=== PATIENT | male | born 1930 ===

== ENCOUNTER 2018-06-22 23:40 | Emergency (ER) | payer MEDICARE ==
[2018-06-22 23:46] VITALS: RESP 16
--- NOTE | 2018-06-23 00:49 | ED PDOC ---
HPI: Trauma/Fall - HPI Time Seen by Provider: 06/22/18 23:52 Chief Complaint (Nursing): Abnormal Skin Integrity Chief Complaint (Provider): Abnormal Skin Integrity History Per: Patient History/Exam Limitations: no limitations Injury Occurred (Timing): Just Before Arrival Associated Symptoms: denies: Dizziness, LOC Additional Complaint(s): 88 y/o male with history of HTN, high cholesterol, anxiety and depression, presents to the ED for evaluation of trauma s/p fall. Patient states he tripped while getting out of bed to go to the bathroom and states he landed on his left arm and hit the back of his head. Patient denies chest pain, shortness of breath, dizziness, or headache. He is only complaining of pain in his left arm. Patient had no trouble walking after event. PMD: Dr. Isaac Rao Past Medical History Reviewed: Historical Data, Nursing Documentation, Vital Signs Vital Signs: Last Vital Signs Temp 98.0 F 06/22/18 23:44 Pulse 74 06/22/18 23:44 Resp 16 06/22/18 23:44 BP 180/99 H 06/22/18 23:44 Pulse Ox 95 06/22/18 23:44 - Medical History PMH: Anxiety, Arthritis (knees), Depression, HTN, Hypercholesterolemia Denies: Chronic Kidney Disease - Family History Family History: States: Unknown Family Hx - Home Medications Home Medications: Ambulatory Orders Medication Instructions Recorded Cephalexin [Keflex] 500 mg PO BID 7 Days #14 capsule 06/23/18 - Allergies Allergies/Adverse Reactions: Allergies Allergy/AdvReac Type Severity Reaction Status Date / Time No Known Allergies Allergy Verified 06/22/18 23:43 Review of Systems ROS Statement: Except As Marked, All Systems Reviewed And Found Negative Cardiovascular: Negative for: Chest Pain Respiratory: Negative for: Shortness of Breath Musculoskeletal: Positive for: Arm Pain Neurological: Negative for: Headache, Dizziness Physical Exam - Reviewed Nursing Documentation Reviewed: Yes Vital Signs Reviewed: Yes - Physical Exam Appears: Positive for: Well, Non-toxic, No Acute Distress Head Exam: Negative for: ATRAUMATIC (1 cm laceration to occipital scalp; no active bleeding) Skin: Positive for: Normal Color, Warm, DRY Eye Exam: Positive for: EOMI, Normal appearance, PERRL Neck: Positive for: Normal, Painless ROM Cardiovascular/Chest: Positive for: Regular Rate, Rhythm. Negative for: Murmur Respiratory: Positive for: Normal Breath Sounds. Negative for: Respiratory Distress Gastrointestinal/Abdominal: Positive for: Normal Exam, Soft. Negative for: Tenderness Back: Positive for: Normal Inspection. Negative for: Vertebral Tenderness Extremity: Positive for: Normal ROM, Other (left arm has 4 cm laceration with large skin tear on volar surface; neurovascularly intact). Negative for: Deformity Neurologic/Psych: Positive for: Alert, Oriented. Negative for: Motor/Sensory Deficits - ECG O2 Sat by Pulse Oximetry: 95 (RA) Pulse Ox Interpretation: Normal Medical Decision Making Medical Decision Making: Time: 00:05 A/P: 88 y/o patient with mechanical fall. Patient is otherwise well appearing with no neurological deficits. Patient is not on blood thinners. Will obtain imaging and repair lacerations * CT Head * RAD Forearm * RAD Pelvis 00:49 CT Head FINDINGS: BRAIN Mild periventricular, deep and subcortical white matter hypodensity bilaterally, compatible with mild microangiopathy. No evidence for acute intracranial hemorrhage. No midline shift or mass effect. VENTRICLES: Mild prominence of ventricles and sulci compatible with mild, age appropriate atrophy. ORBITS: The orbits are unremarkable. SINUSES AND MASTOIDS: The paranasal sinuses and mastoid air cells are clear. BONES: No fracture. SOFT TISSUES: Unremarkable. MISCELLANEOUS: There is atherosclerotic calcification of the intracranial vessels. No convincing evidence for acute territorial infarction. There is some beam hardening artifact near the skull base which slightly limits evaluation. IMPRESSION: 1. Mild prominence of ventricles and sulci compatible with mild, age appropriate atrophy. 2. Mild periventricular, deep and subcortical white matter hypodensity bilaterally, compatible with mild microangiopathy. 3. There is atherosclerotic calcification of the intracranial vessels. 4. No convincing evidence for acute intracranial abnormality. 5. There is some beam hardening artifact near the skull base which slightly limits evaluation. Patient's wounds were sutured and dressed with xeroform and gauze Patient suitable for outpatient followup Well appearing upon discharge Scribe Attestation: Documented by Isidro Payne acting as a scribe for Anmol Aguila MD. Provider Scribe Attestation: All medical record entries made by the Scribe were at my direction and personally dictated by me. I have reviewed the chart and agree that the record accurately reflects my personal performance of the history, physical exam, medical decision making, and the department course for this patient. I have also personally directed, reviewed, and agree with the discharge instructions and disposition. Disposition - Clinical Impression Clinical Impression: Head injury, Laceration - Patient ED Disposition Is Patient to be Admitted: No - Disposition Referrals: Isaac Rao MD [Family Provider] - Disposition: Routine/Home Disposition Time: 02:38 Condition: GOOD Prescriptions: Cephalexin [Keflex] 500 mg PO BID 7 Days #14 capsule Instructions: Laceration Repair With Stitches (DC), Laceration Repair With Young (DC), Closed Head Injury Forms: [employer] ([place]) Laceration - Laceration Repair No standard instances Wound Length (In cm): 4 Description Of Wound: Linear Anesthesia: Lidocaine 1% Wound Examination: Irrigated With Saline Wound Closure: Suture Suture Technique And Material Used: Interrupted Wound Complexity: Simple (4cm laceration to L forearm; 2nd laceration to occiput with 0.5cm laceration, superficial, nonlinear, placed on staple)
[2018-06-23] MEDS ORDERED: Lidocaine Hydrochloride 1% 10 ML ONE ×2 (02:00→02:13)
[2018-06-23 04:12] VITALS: BP 141/81; PULSE 72; TEMP 98.2; O2SAT 99
--- NOTE | 2018-06-23 08:37 | RAD ---
Date of service: 06/23/2018 PROCEDURE: HISTORY: fall, lac COMPARISON: None TECHNIQUE: Two views FINDINGS: No fracture or dislocation. Atherosclerotic vascular calcifications present. Well corticated bony density borders the distal humeral epicondyles on series 386, image 2 this is not localized with certainty on the frontal view are differential considerations. It is not believed to be an osseous avulsion given its well corticated appearance. Calcific and/or ligamentous related calcification is favored. IMPRESSION: No fracture or lytic lesion. Other findings as above.
--- NOTE | 2018-06-23 08:41 | RAD ---
Date of service: 06/23/2018 PROCEDURE: Radiographs of the pelvis. HISTORY: fall COMPARISON: None. FINDINGS: BONES: Pelvic Bones: Generalized osteopenia. No fracture or lytic lesion seen. Hips: Somewhat limited in its assessment no significant change in the frog-leg position from the straight AP pelvic view. The femoral neck is therefore not elongated. Nevertheless no fracture or lytic lesion seen. JOINTS: Sacroiliac Joints: Unremarkable. Pubic Symphysis: Minimal degenerative sclerotic change. OTHER FINDINGS: Endplate spondylosis. Bilateral groin atherosclerotic vascular calcifications. A 2 cm homogeneous dense calcification/ossification superolateral to right femoral head neck junction its etiology and origin is unclear some clear this is related to gluteal soft tissues or if it is related to the right joint. IMPRESSION: No fracture or lytic lesion. No dislocation. Limited exam for reasons stated above. If further evaluation is needed consider MRI or CT of the hips.
--- NOTE | 2018-06-23 08:49 | CT ---
Date of service: 06/23/2018 PROCEDURE: CT HEAD WITHOUT CONTRAST. HISTORY: fall, head injury COMPARISON: None available. TECHNIQUE: Axial computed tomography images were obtained through the head/brain without intravenous contrast. Radiation dose: Total exam DLP = 797.55 mGy-cm. This CT exam was performed using one or more of the following dose reduction techniques: Automated exposure control, adjustment of the mA and/or kV according to patient size, and/or use of iterative reconstruction technique. FINDINGS: HEMORRHAGE: No intracranial hemorrhage. BRAIN: No mass effect or edema there is mild generalized cerebral atrophy and mild periventricular hypodensity compatible with chronic, likely microvascular ischemic changes. VENTRICLES: Ventricular size/prominence commensurate with the degree of atrophy. CALVARIUM: Unremarkable. PARANASAL SINUSES: There is trace inflammatory change in a left sphenoid air cell. The MASTOID AIR CELLS: Unremarkable as visualized. No inflammatory changes. OTHER FINDINGS: Extensive atherosclerotic vascular calcification of the vertebrobasilar and supraclinoid carotid arteries noted. IMPRESSION: No intracranial hemorrhage or mass effect. Cerebral atrophy and findings compatible with microvascular ischemic changes. This portion was compatible with the preliminary [place] reading. Trace left sphenoid sinus inflammatory changes-this was not the mention on the preliminary [place] reading.
== END 2018-06-23 03:10 | disposition home or self-care (01) ==
LOC: H.ER 23:40 → EDBD 23:40 → H.ER 06-23 03:10
DX: S09.90XA Unspecified injury of head, initial encounter (principal); S01.01XA Laceration without foreign body of scalp, initial encounter; W06.XXXA Fall from bed, initial encounter; Z86.59 Personal history of other mental and behavioral disorders; I10 Essential (primary) hypertension; S51.812A Laceration without foreign body of left forearm, initial encounter

== ENCOUNTER 2018-06-24 03:19 | Inpatient (IN) | payer MEDICARE ==
--- NOTE | 2018-06-24 03:40 | ED PDOC ---
HPI: Seizure Time Seen by Provider: 06/24/18 03:24 Chief Complaint (Nursing): Seizure Chief Complaint (Provider): Possible Seizure History Per: Patient, EMS, Fountain Attendant (Certified senior administrative associate ERIK Aleman) History/Exam Limitations: clinical condition (dementia) Number Of Seizures: One Additional Complaint(s): 88 y/o male with history of HTN, high cholesterol, anxiety, and depression, was brought to the ED by EMS for syncope vs. seizure. History is limited due to dementia. EMS was called by because of fall. Per EMS, patient was found in his living room and they state that when they tried to pick him up he became pale and diaphoretic with seizure like activity and patient urinated on himself. EMS reports patient was alert shortly thereafter and knew he was in his own li ving room. On arrival to ED patient is not complaining of any pain. Of note, patient was in this ER yesterday for fall. The patient states that he was feeling dizzy in the house and that he called EMS, although EMS reports that the was the one who called. Patient denies headache, chest pain, shortness of breath. PMD: Dr. Rao Past Medical History Reviewed: Historical Data, Nursing Documentation, Vital Signs Vital Signs: Last Vital Signs Temp 99.2 F 06/24/18 03:22 Pulse 100 H 06/24/18 03:22 Resp 16 06/24/18 03:22 BP 127/63 06/24/18 03:22 Pulse Ox 100 06/24/18 03:22 - Medical History PMH: Anxiety, Arthritis (knees), Depression, HTN, Hypercholesterolemia Denies: Chronic Kidney Disease - Family History Family History: States: Unknown Family Hx - Home Medications Home Medications: Ambulatory Orders Medication Instructions Recorded Clonazepam [Klonopin] 0.5 mg PO PRN PRN 06/24/18 amLODIPine [Norvasc] 5 mg PO DAILY 06/24/18 - Allergies Allergies/Adverse Reactions: Allergies Allergy/AdvReac Type Severity Reaction Status Date / Time No Known Allergies Allergy Verified 06/22/18 23:43 Review of Systems Review Of Systems: ROS cannot be obtained secondary to pt's inabilty to answer questions. (dementia) Physical Exam - Reviewed Nursing Documentation Reviewed: Yes Vital Signs Reviewed: Yes - Physical Exam Appears: Positive for: Well, Non-toxic, No Acute Distress Head Exam: Negative for: ATRAUMATIC (healing wounds to back of head) Skin: Positive for: Normal Color, Warm, DRY Eye Exam: Positive for: EOMI, Normal appearance, PERRL Neck: Positive for: Normal, Painless ROM Cardiovascular/Chest: Positive for: Tachycardia, Irregularly Irregular Respiratory: Positive for: Normal Breath Sounds. Negative for: Respiratory Distress Gastrointestinal/Abdominal: Positive for: Normal Exam, Soft. Negative for: Tenderness Back: Positive for: Normal Inspection Extremity: Positive for: Normal ROM (moving all extremities), Other (healing wounds to left arm; TTP of R hip on palpation). Negative for: Pedal Edema, Deformity Neurologic/Psych: Positive for: Alert, Oriented (x2 (believes it to be 2017)). Negative for: Motor/Sensory Deficits - Laboratory Results Result Diagrams: 06/24/18 03:55 06/24/18 03:55 - ECG O2 Sat by Pulse Oximetry: 100 (RA) Pulse Ox Interpretation: Normal Medical Decision Making Medical Decision Making: Time: 03:29 A/P: 88 y/o with history of HTN, high cholesterol, anxiety and depression with syncope vs. seizure. It is unclear at this time if it was seizure however its unlikely given no post-ictal period. Possible syncope with tonic-clonic feature. If lactate is elevated will point more towards seizure. Patient also currently in afib with RVR, will provide rate control. * Labs * CT Chest * CT C Spine * CT Pelvis * CXR * Cardizem 04:36 CT Head COMMENTS: There is normal configuration of sella turcica. There are no intra or extra- axial collections. There is no mass effect or midline shift. There is no evidence of hematoma formation. No hydrocephalus is present. The ventricles are symmetrical. No abnormal calcifications are present. There is diffuse age-appropriate cerebellar and cerebral atrophy with proportionally dilated ventricles and cortical sulci. There are bilateral periventricular and subcortical white matter hypolucencies compatible with mild chronic microvascular disease. Otherwise, no significant focal abnormalities are seen either in the posterior fossa or supratentorial compartment. Benign meningeal and tentorial calcifications. IMPRESSION: 1. Age-appropriate cerebellar and cerebral atrophy. 2. Mild chronic microvascular disease. 3. No evidence of acute intracranial pathology. 04:42 CT C Spine Findings: Mild osteopenia of the bones. Mild benign chronic compression deformities of C4, C5 and C6 levels. There are diffuse spondylotic changes. Findings are demonstrated by disc space narrowing, osteophyte formation and degenerative endplate changes. Facet joint arthropathy is noted. No fracture or dislocation is seen. No aggressive bone lesion is noted. Chronic fracture of the spinous process of T1. Moderate multilevel degenerative disc disease from C3-C7. Impression: Spondylosis. Multilevel facet joint arthropathy. No acute bone pathology. 04:53 CT Pelvis Findings: Moderate osteopenia of the bones. Acute displaced right intertrochanteric fracture. Distended bladder suggestive of retention. Secondary mild left hydronephrosis. Moderate constipation. Uncomplicated colonic diverticulosis.Ther e are changes of degenerative joint disease. Acute oblique nondisplaced fracture of the left transverse process of L5. Impression: Acute displaced right intertrochanteric fracture. Urinary retention. 5:30 Patient has widening of mediastinum on CXR, will get CT to rule out dissection Patient is now in NSR after omid Norris contacted regarding fracture of hip Patient now complaining of pain in his R hip, will give toradol 15mg IV Dr. Ocampo aware of patient, will assume care of patient. Scribe Attestation: Documented by Isidro Payne acting as a scribe for Anmol Aguila MD. Provider Scribe Attestation: All medical record entries made by the Scribe were at my direction and personally dictated by me. I have reviewed the chart and agree that the record accurately reflects my personal performance of the history, physical exam, medical decision making, and the department course for this patient. I have also personally directed, reviewed, and agree with the discharge instructions and disposition. Disposition - Clinical Impression Clinical Impression: Syncope, Atrial fibrillation with RVR, Hip fracture, intertrochanteric - Patient ED Disposition Is Patient to be Admitted: Yes Discussed With DrSolitario: Ethan Ocampo Counseled Patient/Family Regarding: Studies Performed, Diagnosis - Disposition Disposition Time: 05:25 Condition: FAIR
[2018-06-24 04:43] LABS: BASO % 0.4 % (0.0-2.0); EOS # 0.1 K/uL (0.0-0.7); EOS % 0.6 % (0.0-4.0); HEMOGLOBIN 12.7 g/dL (12.0-18.0); LYMPH # 0.9 K/uL (1.0-4.3); LYMPH % 7.9 % (20.0-40.0); MEAN CELL VOLUME 89.4 fl (80.0-94.0); MEAN CORPUSCULAR HEMOGLOBIN 29.5 pg (27.0-31.0); MEAN PLATELET VOLUME 7.5 fl (7.2-11.7); MONO # 0.6 K/uL (0.0-0.8); MONO % 5.5 % (0.0-10.0); NEUT # 9.8 K/uL (1.8-7.0); NEUT % 85.6 % (50.0-75.0); NRBC % 0.1 % (0.0-0.0); PLATELET COUNT 261 K/uL (130-400); RBC 4.31 Mil/uL (4.40-5.90); WHITE BLOOD COUNT 11.4 K/uL (4.8-10.8)
[2018-06-24 04:47] LABS: INR 1.2; PROTHROMBIN TIME 14.1 Seconds (9.8-13.1)
[2018-06-24 04:50] LABS: PARTIAL THROMBOPLASTIN TIME 28.4 Seconds (25.6-37.1)
[2018-06-24 04:51] LABS: BLOOD UREA NITROGEN 32 mg/dl (9-20); CALCIUM 8.8 mg/dL (8.4-10.2); GFR NON-AFRICAN AMERICAN > 60
[2018-06-24] MEDS ORDERED: Sodium Chloride 0.9% 50 ML IV ONE (05:16)
[2018-06-24] MEDS ORDERED: Iodixanol 320 MG/ML 100 ML BOTTLE IV ONE (05:16)
[2018-06-24 06:00] LABS: LYMPHOCYTE 5 % (20-50); MONOCYTE 7 % (0-10); MYELOCYTE 1 % (0-0); NEUTROPHIL 85 % (42-75); REACTIVE LYMPHOCYTES 2 % (0-0); TOTAL CELLS COUNTED 100
[2018-06-24 06:01] LABS: PLATELET ESTIMATE NORMAL (NORMAL)
[2018-06-24 06:02] LABS: LARGE PLATELETS PRESENT; SPHEROCYTES SLIGHT
[2018-06-24] MEDS ORDERED: Oxycodone/Acetaminophen 5/325 mg Tab PO PRN (06:37)
[2018-06-24 07:09] LABS: URINE BILIRUBIN NEGATIVE (NEGATIVE); URINE BLOOD NEGATIVE (NEGATIVE); URINE CLARITY CLEAR (Clear); URINE COLOR YELLOW (YELLOW); URINE GLUCOSE (UA) NEG (NEGATIVE); URINE LEUKOCYTE ESTERASE NEG Leu/uL (Negative); URINE PROTEIN 100 mg/dL (NEGATIVE); URINE UROBILINOGEN 0.2-1.0 mg/dL (0.2-1.0)
--- NOTE | 2018-06-24 07:14 | CP.PCM.HP ---
History of Present Illness - History of Present Illness History of Present Illness: Pt is an 88 y/o male with hx of HTN, HLD, Anxiety, and Depression brought to ED by EMS after episode of syncopy. History limited as patient has baseline and cannot recall preceding events. History obtained from EMS is that patient was found on living room floor by with brief loc. EMS reported on arrival that he had "Seizure-like" activity lasting 15 seconds and self aborting. Afterwards, he was alert and oriented to his baseline with no postictal. He was noted to have urinary incontinence during this episode. No tongue bleeding. Pt is able to state that he does not have chest pain, sob, cough, headache. He complains of right hip and knee pain as well as the urge to urinate. States he has problems with urination (dysuria x6 months) and was given medication for his prostate by his PMD. Of note, pt visited ED 1 day ago after witnessed mechanical fall. Head CT negative. Noted to have small head laceration that was repaired with one staple and abrasion on left arm that was given wound care. PMD: Dr. Acosta PMHX: HTN, HLD, Anxiety, and Depression PSurgHx: Pt denies Medications: Norvasc, Klonipin prn Social: Lives with , used to smoke but quit 20 years ago, drinks ETOH occassionally but not everyday Present on Admission - Present on Admission Any Indicators Present on Admission: No Past Patient History - Past Social History Smoking Status: Never Smoked - CARDIAC Hx Cardiac Disorders: Yes - PULMONARY Hx Respiratory Disorders: No - NEUROLOGICAL Hx Neurological Disorder: No - HEENT Hx HEENT Problems: No - RENAL Hx Chronic Kidney Disease: No - ENDOCRINE/METABOLIC Hx Endocrine Disorders: No - HEMATOLOGICAL/ONCOLOGICAL Hx Blood Disorders: No - INTEGUMENTARY Hx Dermatological Problems: No - MUSCULOSKELETAL/RHEUMATOLOGICAL Hx Arthritis: Yes (knees) - GASTROINTESTINAL Hx Gastrointestinal Disorders: No - GENITOURINARY/GYNECOLOGICAL Hx Genitourinary Disorders: Yes Hx Prostate Problems: Yes - PSYCHIATRIC Hx Anxiety: Yes Hx Depression: Yes - SURGICAL HISTORY Hx Surgeries: No - ANESTHESIA Hx Anesthesia: No Meds Allergies/Adverse Reactions: Allergies Allergy/AdvReac Type Severity Reaction Status Date / Time No Known Allergies Allergy Verified 06/22/18 23:43 Physical Exam - Constitutional Appears: No Acute Distress (Elderly man, calm, cooperative with exam, hard of hearing), In Acute Distress - Head Exam Additional comments: occipital abrasion with small laceration repaired with one staple - Eye Exam Eye Exam: EOMI, PERRL. absent: Nystagmus - ENT Exam ENT Exam: Mucous Membranes Moist - Respiratory Exam Respiratory Exam: Clear to Auscultation Bilateral, Rales (BIlateral rales up to mid lung bases). absent: Accessory Muscle Use, Wheezes - Cardiovascular Exam Cardiovascular Exam: REGULAR RHYTHM, +S1, +S2. absent: Systolic Murmur - GI/Abdominal Exam GI & Abdominal Exam: Normal Bowel Sounds, Soft. absent: Distended, Tenderness Additional comments: Cobb cathether in place with 1.2L of concentrated urine - Extremities Exam Additional comments: Right hip externally rotated, ROM liited to pain, no swelling/ecchymosis noted, distal pulses +2/2, Right Knee- mild effusion with superficial erythema/early bruise. Bilateral LE- scattered varicosities - Back Exam Back exam: vertebral tenderness (Lumbar). absent: CVA tenderness (L), CVA tenderness (R) - Neurological Exam Neurological exam: Alert (Oriented to name and place only; Moving all extremties, no focal deficits notes) - Psychiatric Exam Psychiatric exam: Anxious - Skin Skin Exam: Normal Color Results - Vital Signs Recent Vital Signs: Last Vital Signs Temp 97.8 F 06/24/18 07:03 Pulse 77 06/24/18 07:03 Resp 20 06/24/18 07:03 BP 115/70 06/24/18 07:03 Pulse Ox 94 L 06/24/18 06:58 - Labs Result Diagrams: 06/24/18 03:55 06/24/18 03:55 Labs: Laboratory Results - last 24 hr 06/24/18 06/24/18 06/24/18 03:55 03:55 03:55 WBC 11.4 H RBC 4.31 L Hgb 12.7 Hct 38.6 MCV 89.4 MCH 29.5 MCHC 33.0 RDW 13.0 Plt Count 261 MPV 7.5 Neut % (Auto) 85.6 H Lymph % (Auto) 7.9 L [place] % (Auto) 5.5 Eos % (Auto) 0.6 Baso % (Auto) 0.4 Neut # (Auto) 9.8 H Lymph # (Auto) 0.9 L [place] # (Auto) 0.6 Eos # (Auto) 0.1 Baso # (Auto) 0.0 Neutrophils % (Manual) 85 H Lymphocytes % (Manual) 5 L Reactive Lymphs % 2 H Monocytes % (Manual) 7 Myelocytes % 1 H Platelet Estimate Normal Large Platelets Present Spherocytes Slight PT 14.1 H INR 1.2 APTT 28.4 Sodium 128 L Potassium 4.1 Chloride 92 L Carbon Dioxide 25 Anion Gap 15 BUN 32 H Creatinine 1.0 Est GFR ( Amer) > 60 Est GFR (Non-Af Amer) > 60 Random Glucose 174 H Lactic Acid Calcium 8.8 Troponin I 0.0210 06/24/18 03:55 WBC RBC Hgb Hct MCV MCH MCHC RDW Plt Count MPV Neut % (Auto) Lymph % (Auto) [place] % (Auto) Eos % (Auto) Baso % (Auto) Neut # (Auto) Lymph # (Auto) [place] # (Auto) Eos # (Auto) Baso # (Auto) Neutrophils % (Manual) Lymphocytes % (Manual) Reactive Lymphs % Monocytes % (Manual) Myelocytes % Platelet Estimate Large Platelets Spherocytes PT INR APTT Sodium Potassium Chloride Carbon Dioxide Anion Gap BUN Creatinine Est GFR ( Amer) Est GFR (Non-Af Amer) Random Glucose Lactic Acid 1.4 Calcium Troponin I Assessment & Plan - Assessment and Plan (Free Text) Assessment: Pt is an 88 y/o male with hx of HTN, HLD, Anxiety, and Depression brought to ED by EMS after episode of syncopy. ED Course: -Vitals: T 99.2, HR 100F, BP 127/63, O2 sat 100 on rm air -EKG Afibb w/ RVR -Head CT: no acute findings -Pelvis CT: Acute displaced R. 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 Lactic acid negative -Cardiology Consulted -Neurology Consulted -Seizure and fall precautions #New onset Afibb -Afibb w/ RVR on presentation -Rate and rythm controlled after Cardizem 10mg IV and 30 po once in ED -Will continue with Cardizem 30 QID po; Monitor BP closely -Cardiac monitoring -Cardiology consult #Acute displaced R. Trochanteric Fx -Ortho Consulted -Pain management #Leukocytes w/ neutrophilic predominance -Unclear if pt has underlying infectious process -Zosyn started empirically -U/A,Ucx, Bcx, Procalcitonin ordered #Azotemia -Mild dehydration -HypoNatremia and hypochloremia; likely contraction metabolic alkalosis -NS at 84cc/hr (laurie hydration given mild CHF noted in CT) #Nondisplaced Fx L5 spineous process -Neurosurgery consulted -No Red Flag signs on exam #Urinary Retention Incontinence -Pt likely has overflow incontinence from BPH causing bladder outflow obstruction -He reports hx of "Prostate problems" -Not on flomax, consider starting if BP permits -Cobb in place for now as pt was acutely retaining -F/U UA and Ucx for infectious process as well 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 Will discuss with today Discussed case with Dr. Terrence Victoria PGY2
[2018-06-24] MEDS ORDERED: Sodium Chloride 0.9% 1,000 ML IV SCH (07:30)
[2018-06-24 07:57] LABS: ALB/GLOB RATIO 1.1 (1.0-2.1); ALBUMIN 3.7 g/dL (3.5-5.0); BILIRUBIN,DIRECT 0.2 mg/ml (0.0-0.4)
[2018-06-24] MEDS: Sodium Chloride 0.9% 1,000 ML IV SCH ×2 (08:00→19:45)
--- NOTE | 2018-06-24 08:41 | CP.PCM.CON ---
History of Present Illness - History of Present Illness History of Present Illness: Orthopedic consult: Dr. Norris Patient is an 88 y/o male who presents with R hip pain following an unwitnessed fall at home last night around 3AM. Son and at bedside who provide some history and translation for patient. Patient notes that as he was going to his bathroom from the bedroom at 3AM last night, he fell onto his right side but does not recall the why he fell. He denies dizziness but had brief LOC. He was unable to ambulate thereafter and is now experiencing right hip pain that extends to the right distal thigh. He denies numbness/tingling to BLE. He denies any other injuries. He reports a mechanical fall that occurred two days ago, as he tripped over his footing. He reports a head injury, and a left arm injury which were repaired in the ER. CT scan of the head was negative at that time. He currently denies CP/SOB/N/V/D/fever/melena. PMH: HTN, HLD, Anxiety, and Depression PSH: Denies Medications: Tolu Mendoza Social: Lives with ,former smoker but quit 20 years ago, ETOH occassionally. Review of Systems - Review of Systems All systems: reviewed and no additional remarkable complaints except Review of Systems: as per HPI Past Patient History - Past Medical History & Family History Past Family History: Reviewed and not pertinent - Past Social History Smoking Status: Never Smoked - CARDIAC Hx Cardiac Disorders: Yes - PULMONARY Hx Respiratory Disorders: No - NEUROLOGICAL Hx Neurological Disorder: No - HEENT Hx HEENT Problems: No - RENAL Hx Chronic Kidney Disease: No - ENDOCRINE/METABOLIC Hx Endocrine Disorders: No - HEMATOLOGICAL/ONCOLOGICAL Hx Blood Disorders: No - INTEGUMENTARY Hx Dermatological Problems: No - MUSCULOSKELETAL/RHEUMATOLOGICAL Hx Arthritis: Yes (knees) - GASTROINTESTINAL Hx Gastrointestinal Disorders: No - GENITOURINARY/GYNECOLOGICAL Hx Genitourinary Disorders: Yes Hx Prostate Problems: Yes - PSYCHIATRIC Hx Anxiety: Yes Hx Depression: Yes - SURGICAL HISTORY Hx Surgeries: No - ANESTHESIA Hx Anesthesia: No Meds Allergies/Adverse Reactions: Allergies Allergy/AdvReac Type Severity Reaction Status Date / Time No Known Allergies Allergy Verified 06/22/18 23:43 - Medications Medications: Current Medications Acetaminophen (Tylenol 325mg Tab) 650 mg PO Q6 PRN PRN Reason: Pain, Mild (1-3) Amlodipine Besylate (Norvasc) 5 mg PO DAILY [facility] Clonazepam (Klonopin) 0.5 mg PO Q12H PRN PRN Reason: Anxiety Diltiazem HCl (Cardizem) 30 mg PO QID [facility] Famotidine (Pepcid) 20 mg PO BID [facility] Sodium Chloride (Sodium Chloride 0.9%) 1,000 mls @ 84 mls/hr IV .[id number] [facility] Stop: 06/25/18 07:27 Sodium Chloride (Sodium Chloride 0.9%) 1,000 mls @ 80 mls/hr IV .[id number] [facility] Stop: 06/25/18 07:27 Piperacillin Sod/Tazobactam (Sod 3.375 gm/ Sodium Chloride) 100 mls @ 100 mls/hr IVPB Q6 [facility]; Protocol Ketorolac Tromethamine (Toradol) 30 mg IVP Q6 PRN PRN Reason: Pain, moderate (4-7) Oxycodone/Acetaminophen (Percocet 5/325 Mg Tab) 1 tab PO Q4 PRN PRN Reason: Pain, severe (8-10) Stop: 06/27/18 06:38 Physical Exam - Constitutional Appears: Well, No Acute Distress - Eye Exam Eye Exam: EOMI, Normal appearance - ENT Exam ENT Exam: Mucous Membranes Moist - Respiratory Exam Respiratory Exam: NORMAL BREATHING PATTERN - Extremities Exam Additional comments: RLE: + shortened, externally rotated limb tenderness to lateral hip over greater troch sensation intact SP/DP/TN motor intact EHL/FHL/TA/G pedal pulse intact calves soft NT b/l - Neurological Exam Neurological exam: Alert, Oriented x3 - Psychiatric Exam Psychiatric exam: Normal Affect, Normal Mood - Skin Skin Exam: Normal Color, Warm Results - Vital Signs Recent Vital Signs: Last Vital Signs Temp 97.8 F 06/24/18 07:03 Pulse 77 06/24/18 07:03 Resp 20 06/24/18 07:03 BP 115/70 06/24/18 07:03 Pulse Ox 94 L 06/24/18 06:58 - Labs Result Diagrams: 06/24/18 03:55 06/24/18 03:55 Labs: Laboratory Results - last 24 hr 06/24/18 06/24/18 06/24/18 03:55 03:55 03:55 WBC 11.4 H RBC 4.31 L Hgb 12.7 Hct 38.6 MCV 89.4 MCH 29.5 MCHC 33.0 RDW 13.0 Plt Count 261 MPV 7.5 Neut % (Auto) 85.6 H Lymph % (Auto) 7.9 L [place] % (Auto) 5.5 Eos % (Auto) 0.6 Baso % (Auto) 0.4 Neut # (Auto) 9.8 H Lymph # (Auto) 0.9 L [place] # (Auto) 0.6 Eos # (Auto) 0.1 Baso # (Auto) 0.0 Neutrophils % (Manual) 85 H Lymphocytes % (Manual) 5 L Reactive Lymphs % 2 H Monocytes % (Manual) 7 Myelocytes % 1 H Platelet Estimate Normal Large Platelets Present Spherocytes Slight PT 14.1 H INR 1.2 APTT 28.4 Sodium 128 L Potassium 4.1 Chloride 92 L Carbon Dioxide 25 Anion Gap 15 BUN 32 H Creatinine 1.0 Est GFR ( Amer) > 60 Est GFR (Non-Af Amer) > 60 Random Glucose 174 H Lactic Acid Calcium 8.8 Total Bilirubin Direct Bilirubin AST ALT Alkaline Phosphatase Troponin I 0.0210 Total Protein Albumin Globulin Albumin/Globulin Ratio Urine Color Urine Clarity Urine pH Ur Specific [place] Urine Protein Urine Glucose (UA) Urine Ketones Urine Blood Urine Nitrate Urine Bilirubin Urine Urobilinogen Ur Leukocyte Esterase Urine RBC (Auto) Urine Microscopic WBC 06/24/18 06/24/18 06/24/18 03:55 05:45 07:46 WBC RBC Hgb Hct MCV MCH MCHC RDW Plt Count MPV Neut % (Auto) Lymph % (Auto) [place] % (Auto) Eos % (Auto) Baso % (Auto) Neut # (Auto) Lymph # (Auto) [place] # (Auto) Eos # (Auto) Baso # (Auto) Neutrophils % (Manual) Lymphocytes % (Manual) Reactive Lymphs % Monocytes % (Manual) Myelocytes % Platelet Estimate Large Platelets Spherocytes PT INR APTT Sodium Potassium Chloride Carbon Dioxide Anion Gap BUN Creatinine Est GFR ( Amer) Est GFR (Non-Af Amer) Random Glucose Lactic Acid 1.4 Calcium Total Bilirubin 1.0 Direct Bilirubin 0.2 AST 59 ALT 24 Alkaline Phosphatase 66 Troponin I Total Protein 7.1 Albumin 3.7 Globulin 3.4 Albumin/Globulin Ratio 1.1 Urine Color Yellow Urine Clarity Clear Urine pH 6.0 Ur Specific [place] 1.019 Urine Protein 100 Urine Glucose (UA) Neg Urine Ketones Trace Urine Blood Negative Urine Nitrate Negative Urine Bilirubin Negative Urine Urobilinogen 0.2-1.0 Ur Leukocyte Esterase Neg Urine RBC (Auto) 3 Urine Microscopic WBC < 1 - Impressions Impression: Accession No. : [id number] Patient Name / ID : AMBAR CAT / [id number] Exam Date : 06/24/2018 09:59:46 ( Approved ) Study Comment : Sex / Age : M / 88Y Creator : Dictator : Gavin De Paz MD [employer] Machine Tender : Career Education Teacher : Gavin De Paz MD Approver2 : Report Date : My Comment : Date of service: 06/24/2018 PROCEDURE: Right hip and pelvis HISTORY: Right r hip IT fx COMPARISON: Comparison made with prior CT scan of the pelvis dated 06/24/2018 at 04:05. TECHNIQUE: Frontal view of the pelvis and frontal/frogleg lateral views of the right hip performed. FINDINGS: Redemonstrated is a mildly displaced intertrochanteric fracture of the right hip with mild varus deformity angulation deformity. The right and left femoral heads are appropriately located within the respective acetabula. No other acute fractures are identified. Mild degenerative osteoarthritis both hip joints. Degenerative changes of the symphysis and both SI joints as well as the lower lumbosacral spine Diffuse demineralization. Note made of calcified injection granuloma right buttock IMPRESSION: Intertrochanteric fracture right hip with mild varus angulation deformity. Accession No. : [id number] Patient Name / ID : AMBAR CAT / [id number] Exam Date : 06/24/2018 04:05:06 ( Approved ) Study Comment : Sex / Age : M / 88Y Creator : Gavin De Paz MD Dictator : Gavin De Paz MD [employer] Machine Tender : Career Education Teacher : Gavin De Paz MD Approver2 : Report Date : 06/24/2018 12:39:27 My Comment : Date of service: 06/24/2018 PROCEDURE: CT Pelvis without contrast HISTORY: Fall COMPARISON: Comparison made with plain film radiographs of the right hip 06/23/2018. TECHNIQUE: Contiguous axial images of the pelvis . No intravenous or oral contrast given. Coronal and sagittal reformats generated. Radiation dose: Total exam DLP = 665.32 mGy-cm. This CT exam was performed using one or more of the following dose reduction techniques: Automated exposure control, adjustment of the mA and/or kV according to patient size, and/or use of iterative reconstruction technique. FINDINGS: BLADDER: There is left-sided hydronephrosis and hydroureter the etiology which is unclear from this study as there are no distal ureteral calculi identified.. Urologic consultation is recommended. The urinary bladder is markedly distended with what appear to represent small diverticula along the superolateral border of the urinary bladder.; Rule out bladder outlet obstruction REPRODUCTIVE ORGANS: Prostate gland measures approximately 3.5 cm in transverse dimension. VISUALIZED BOWEL: Unremarkable. Findings suggest mild constipation. Multiple colonic diverticula the bulk of which arise from the distal descending and sigmoid colon. No definitive radiographic evidence of acute diverticulitis. PERITONEUM: Unremarkable, as visualized. No free fluid. No free air. There is a small fat containing umbilical hernia. LYMPH NODES: Unremarkable. No enlarged lymph nodes. BONES: Mildly displaced intertrochanteric fracture right femur. The right femoral head is appropriately located within the right acetabulum. Mild diffuse demineralization. Mild sclerotic incomplete fusion changes of both SI joints Multilevel degenerative spondylosis of the lumbosacral spine. Note is made of a expansile changes of the lower sacral/coccygeal central canal; rule out sacral arachnoid cyst or perineural-Tarlov cyst VASCULATURE: No aortic atherosclerotic calcification or mural plaque present. OTHER FINDINGS: None. IMPRESSION: Mildly displaced on intertrochanteric fracture right femur. Expansile changes of the lower sacral/coccygeal central canal; rule out sacral arachnoid cyst or perineural-Tarlov cyst.. Assessment & Plan (1) Intertrochanteric fracture of right hip Assessment and Plan: -Dr. Norris recommends right hip fx ORIF with intermedullary nail once medically cleared -Awaiting medical/neurology/cardiac clearance -bedrest/NWB RLE -pain control -above d/w Dr. Norris in agreement Status: Acute - Date & Time Date: 06/24/18 Time: 08:00
--- NOTE | 2018-06-24 08:48 | CT ---
Date of service: 06/24/2018 PROCEDURE: CT HEAD WITHOUT CONTRAST. HISTORY: s/p fall, syncope v seizure COMPARISON: 06/23/2018. TECHNIQUE: Axial computed tomography images were obtained through the head/brain without intravenous contrast. Radiation dose: Total exam DLP = 932.33 mGy-cm. This CT exam was performed using one or more of the following dose reduction techniques: Automated exposure control, adjustment of the mA and/or kV according to patient size, and/or use of iterative reconstruction technique. FINDINGS: HEMORRHAGE: No intracranial hemorrhage. BRAIN: There are mild chronic microangiopathic changes. There is no mass, mass effect or abnormal extra-axial fluid collection. There is no territorial infarction. The midline sagittal structures are normal. VENTRICLES: There is mild age-related global parenchymal volume loss and proportionate enlargement of the ventricles and cortical sulci. CALVARIUM: There is no calvarial fracture or extracranial soft tissue swelling. PARANASAL SINUSES: Predominantly clear. MASTOID AIR CELLS: Predominantly clear. OTHER FINDINGS: None. IMPRESSION: No acute intracranial abnormality. Mild chronic microangiopathic changes and mild age-related global parenchymal volume loss. A preliminary report was provided by [facility].
--- NOTE | 2018-06-24 09:24 | CP.PCM.CON ---
History of Present Illness - History of Present Illness History of Present Illness: General surgery consult note for dr. Cooper Pt is an 88M who presented to the ED after an unwitnessed fall last night. During workup for syncope, a CT dissection protocol was performed and found an incidental stone in the gallbladder with possible inflammatory changes, so surgery consult was placed. Patient denies any abdominal pain, nausea, vomiting, diarrhea, constipation, melena, hematochezia, denies any fevers or chills. Patie nt has a poor appetite lately but no difficulty eating. PMH: HTN, HLD, Depression, anxiety, BPH PSH: none ALL; nkda Social: used to smoke cigars--stopped 30 years ago, ETOH: used to drink beers, quit 10 years ago, no illicit drugs Review of Systems - Review of Systems All systems: reviewed and no additional remarkable complaints except (as per HPI) Review of Systems: right hip and knee pain, pain at back of scalp Past Patient History - Past Medical History & Family History Past Medical History?: Yes Past Family History: Reviewed and not pertinent - Past Social History Smoking Status: Never Smoked - CARDIAC Hx Cardiac Disorders: Yes - PULMONARY Hx Respiratory Disorders: No - NEUROLOGICAL Hx Neurological Disorder: No - HEENT Hx HEENT Problems: No - RENAL Hx Chronic Kidney Disease: No - ENDOCRINE/METABOLIC Hx Endocrine Disorders: No - HEMATOLOGICAL/ONCOLOGICAL Hx Blood Disorders: No - INTEGUMENTARY Hx Dermatological Problems: No - MUSCULOSKELETAL/RHEUMATOLOGICAL Hx Arthritis: Yes (knees) - GASTROINTESTINAL Hx Gastrointestinal Disorders: No - GENITOURINARY/GYNECOLOGICAL Hx Genitourinary Disorders: Yes Hx Prostate Problems: Yes - PSYCHIATRIC Hx Anxiety: Yes Hx Depression: Yes - SURGICAL HISTORY Hx Surgeries: No - ANESTHESIA Hx Anesthesia: No Meds Allergies/Adverse Reactions: Allergies Allergy/AdvReac Type Severity Reaction Status Date / Time No Known Allergies Allergy Verified 06/22/18 23:43 - Medications Medications: Current Medications Acetaminophen (Tylenol 325mg Tab) 650 mg PO Q6 PRN PRN Reason: Pain, Mild (1-3) Amlodipine Besylate (Norvasc) 5 mg PO DAILY [facility] Clonazepam (Klonopin) 0.5 mg PO Q12H PRN PRN Reason: Anxiety Diltiazem HCl (Cardizem) 30 mg PO QID [facility] Famotidine (Pepcid) 20 mg PO BID [facility] Sodium Chloride (Sodium Chloride 0.9%) 1,000 mls @ 84 mls/hr IV .[id number] [facility] Stop: 06/25/18 07:27 Sodium Chloride (Sodium Chloride 0.9%) 1,000 mls @ 80 mls/hr IV .[id number] [facility] Stop: 06/25/18 07:27 Piperacillin Sod/Tazobactam (Sod 3.375 gm/ Sodium Chloride) 100 mls @ 100 mls/hr IVPB Q6 [facility]; Protocol Ketorolac Tromethamine (Toradol) 30 mg IVP Q6 PRN PRN Reason: Pain, moderate (4-7) Oxycodone/Acetaminophen (Percocet 5/325 Mg Tab) 1 tab PO Q4 PRN PRN Reason: Pain, severe (8-10) Stop: 06/27/18 06:38 Physical Exam - Constitutional Appears: Well, Non-toxic, No Acute Distress - Head Exam Head Exam: ATRAUMATIC, NORMAL INSPECTION, NORMOCEPHALIC Additional comments: mild tenderness to palpation over occiput, no skin changes, crepitus, or any other signs - Eye Exam Eye Exam: EOMI, Normal appearance, PERRL. absent: Conjunctival injection, Scleral icterus Pupil Exam: NORMAL ACCOMODATION - ENT Exam ENT Exam: Mucous Membranes Moist, Normal Oropharynx - Neck Exam Neck exam: Positive for: Full Rom, Normal Inspection. Negative for: Tenderness - Respiratory Exam Respiratory Exam: NORMAL BREATHING PATTERN. absent: Accessory Muscle Use, Respiratory Distress - Cardiovascular Exam Cardiovascular Exam: RRR - GI/Abdominal Exam GI & Abdominal Exam: Soft. absent: Distended, Guarding, Tenderness Additional comments: negative flores's - Extremities Exam Extremities exam: Positive for: pedal pulses present. Negative for: calf tenderness, pedal edema Additional comments: tenderness of right hip and knee - Neurological Exam Neurological exam: Alert, CN II-XII Intact, Oriented x3 Additional comments: No gross motorsensory defects of the BL lower extremities - Psychiatric Exam Psychiatric exam: Normal Affect, Normal Mood - Skin Skin Exam: Dry, Normal Color, Warm Results - Vital Signs Recent Vital Signs: Last Vital Signs Temp 97.8 F 06/24/18 07:03 Pulse 77 06/24/18 07:03 Resp 20 06/24/18 07:03 BP 115/70 06/24/18 07:03 Pulse Ox 94 L 02/28/19 06:58 - Labs Result Diagrams: 06/24/18 03:55 06/24/18 03:55 Labs: Laboratory Results - last 24 hr 06/24/18 06/24/18 06/24/18 03:55 03:55 03:55 WBC 11.4 H RBC 4.31 L Hgb 12.7 Hct 38.6 MCV 89.4 MCH 29.5 MCHC 33.0 RDW 13.0 Plt Count 261 MPV 7.5 Neut % (Auto) 85.6 H Lymph % (Auto) 7.9 L [place] % (Auto) 5.5 Eos % (Auto) 0.6 Baso % (Auto) 0.4 Neut # (Auto) 9.8 H Lymph # (Auto) 0.9 L [place] # (Auto) 0.6 Eos # (Auto) 0.1 Baso # (Auto) 0.0 Neutrophils % (Manual) 85 H Lymphocytes % (Manual) 5 L Reactive Lymphs % 2 H Monocytes % (Manual) 7 Myelocytes % 1 H Platelet Estimate Normal Large Platelets Present Spherocytes Slight PT 14.1 H INR 1.2 APTT 28.4 Sodium 128 L Potassium 4.1 Chloride 92 L Carbon Dioxide 25 Anion Gap 15 BUN 32 H Creatinine 1.0 Est GFR ( Amer) > 60 Est GFR (Non-Af Amer) > 60 Random Glucose 174 H Lactic Acid Calcium 8.8 Total Bilirubin Direct Bilirubin AST ALT Alkaline Phosphatase Troponin I 0.0210 Total Protein Albumin Globulin Albumin/Globulin Ratio Urine Color Urine Clarity Urine pH Ur Specific [place] Urine Protein Urine Glucose (UA) Urine Ketones Urine Blood Urine Nitrate Urine Bilirubin Urine Urobilinogen Ur Leukocyte Esterase Urine RBC (Auto) Urine Microscopic WBC 06/24/18 06/24/18 06/24/18 03:55 05:45 07:46 WBC RBC Hgb Hct MCV MCH MCHC RDW Plt Count MPV Neut % (Auto) Lymph % (Auto) [place] % (Auto) Eos % (Auto) Baso % (Auto) Neut # (Auto) Lymph # (Auto) [place] # (Auto) Eos # (Auto) Baso # (Auto) Neutrophils % (Manual) Lymphocytes % (Manual) Reactive Lymphs % Monocytes % (Manual) Myelocytes % Platelet Estimate Large Platelets Spherocytes PT INR APTT Sodium Potassium Chloride Carbon Dioxide Anion Gap BUN Creatinine Est GFR ( Amer) Est GFR (Non-Af Amer) Random Glucose Lactic Acid 1.4 Calcium Total Bilirubin 1.0 Direct Bilirubin 0.2 AST 59 ALT 24 Alkaline Phosphatase 66 Troponin I Total Protein 7.1 Albumin 3.7 Globulin 3.4 Albumin/Globulin Ratio 1.1 Urine Color Yellow Urine Clarity Clear Urine pH 6.0 Ur Specific [place] 1.019 Urine Protein 100 Urine Glucose (UA) Neg Urine Ketones Trace Urine Blood Negative Urine Nitrate Negative Urine Bilirubin Negative Urine Urobilinogen 0.2-1.0 Ur Leukocyte Esterase Neg Urine RBC (Auto) 3 Urine Microscopic WBC < 1 Assessment & Plan - Assessment and Plan (Free Text) Assessment: 88M s/p fall with asymptomatic incidental cholelithiasis Plan: No indication for any surgical intervention--patient clinical exam and labs not indicative of cholecystitis May follow up with Dr. Cooper as an outpatient for any further concerns Medical management per primary Discussed with Dr. Cooper, who agrees with above Mary Valdez, PGY2
--- NOTE | 2018-06-24 09:27 | RAD ---
Date of service: 06/24/2018 PROCEDURE: CHEST RADIOGRAPH, 1 VIEW HISTORY: Syncope COMPARISON: None available. FINDINGS: LUNGS: The lungs are well inflated. There is mild pulmonary venous congestion. No focal consolidation. PLEURA: No pneumothorax or pleural effusion. CARDIOVASCULAR: There is severe cardiomegaly. There is unfolding of the aorta. No aortic atherosclerotic calcifications present. OSSEOUS STRUCTURES: Within normal limits for the patient's age. VISUALIZED UPPER ABDOMEN: Normal. OTHER FINDINGS: None. IMPRESSION: No active pulmonary disease. Severe cardiomegaly and mild pulmonary venous congestion.
--- NOTE | 2018-06-24 10:06 | CP.PCM.PN ---
Subjective - Date & Time of Evaluation Date of Evaluation: 06/24/18 Time of Evaluation: 10:06 - Subjective Subjective: left transverse process fracture no intervention required for this Objective - Vital Signs/Intake and Output Vital Signs (last 24 hours): Temp Pulse Resp BP Pulse Ox 97.8 F 77 20 115/70 94 L 06/24/18 07:03 06/24/18 07:03 06/24/18 07:03 06/24/18 07:03 06/24/18 06:58 - Medications Medications: Current Medications Acetaminophen (Tylenol 325mg Tab) 650 mg PO Q6 PRN PRN Reason: Pain, Mild (1-3) Amlodipine Besylate (Norvasc) 5 mg PO DAILY [facility] Clonazepam (Klonopin) 0.5 mg PO Q12H PRN PRN Reason: Anxiety Diltiazem HCl (Cardizem) 30 mg PO QID [facility] Famotidine (Pepcid) 20 mg PO BID [facility] Sodium Chloride (Sodium Chloride 0.9%) 1,000 mls @ 84 mls/hr IV .[id number] [facility] Stop: 06/25/18 07:27 Sodium Chloride (Sodium Chloride 0.9%) 1,000 mls @ 80 mls/hr IV .[id number] [facility] Stop: 06/25/18 07:27 Piperacillin Sod/Tazobactam (Sod 3.375 gm/ Sodium Chloride) 100 mls @ 100 mls/hr IVPB Q6 [facility]; Protocol Ketorolac Tromethamine (Toradol) 30 mg IVP Q6 PRN PRN Reason: Pain, moderate (4-7) Oxycodone/Acetaminophen (Percocet 5/325 Mg Tab) 1 tab PO Q4 PRN PRN Reason: Pain, severe (8-10) Stop: 06/27/18 06:38 - Labs Labs: 06/24/18 03:55 06/24/18 03:55 PT 14.1 Seconds (9.8-13.1) H 06/24/18 03:55 INR 1.2 06/24/18 03:55 APTT 28.4 Seconds (25.6-37.1) 06/24/18 03:55
[2018-06-24] MEDS: Piperacillin/Tazobact 3.375 GM in Sodium Chloride 0.9% 100 ML IVPB SCH ×3 (11:45→21:07)
--- NOTE | 2018-06-24 11:47 | CARD ---
APPROVED REPORT Date of service: 06/24/2018 EKG Measurement Heart [id number] <Conclusion> Sinus tachycardia Left anterior fascicular block Minimal voltage criteria for LVH, may be normal variant Abnormal ECG
--- NOTE | 2018-06-24 11:56 | CT ---
Date of service: 06/24/2018 PROCEDURE: CT Cervical Spine without contrast HISTORY: Fall COMPARISON: None available. TECHNIQUE: Axial computed tomography images were obtained of the cervical spine without the use of intravenous contrast. Coronal and sagittal reformatted images were created and reviewed. Radiation dose: Total exam DLP = 404.77 mGy-cm. This CT exam was performed using one or more of the following dose reduction techniques: Automated exposure control, adjustment of the mA and/or kV according to patient size, and/or use of iterative reconstruction technique. FINDINGS: VERTEBRAE: No evidence acute compression fractures no retropulsed fragments however note is made of fish-mouth endplate deformities involving several vertebral body segments. Chronic anterior stature loss of the a C5 segment felt to be degenerative in origin. The remaining vertebral bodies exhibit normal stature. There is also an apparent incompletely fused fracture deformity of the T7 spinous process. Slight straightening of the normal upper cervical lordosis however vertebral bodies and facets otherwise normally aligned. DISCS/SPINAL CANAL/NEURAL FORAMINA: Multilevel degenerative spondylosis. At the C2-C3 level, there is relatively adequate disc height. Significant left-sided facet arthropathy with mild to moderate right-sided facet arthropathy. Mild hypertrophic uncovertebral joint changes present as well left greater than right. Central canal appears adequate. Left exit foramen is stenotic. Right exit foramen is quite capacious. At the C3-C4 level, there is adequate disc height. Small central and bilateral disc bulge indents the ventral surface of the thecal sac and presumably compresses the ventral surface of the cord. Central canal is mildly narrowed. Mild degenerative squaring of the uncovertebral joints left greater than right. The left facet is significantly hypertrophic. Mild right facet arthropathy. Significant left-sided foraminal stenosis. Mild right-sided foraminal stenosis. At the C4-C5 level, there is adequate disc height. Hypertrophic uncovertebral joints right greater than left result in compressive effects along the anterolateral borders of the thecal sac and may also of flattens the anterolateral borders of the spinal cord as well. The right facet is quite hypertrophic. Left facet is more moderately hypertrophic. Right-sided foraminal stenosis. Left exit foramen is also mildly narrowed. At the C5-C6 level, there is marked disc space narrowing with endplate eburnation and small amount of vacuum phenomena. Small broad-based disc ridge complex contiguous with hypertrophic uncovertebral joints. Facets also hypertrophic. Central canal is mildly stenotic. There may also be some mild compressive effects along the anterolateral borders of the thecal sac by the overgrown uncovertebral joints. Facets are hypertrophic as well with bilateral foraminal stenosis.. Similar changes seen at the C6-C7 level PARASPINAL SOFT TISSUES: Paraspinal soft tissues unremarkable. OTHER FINDINGS: None. IMPRESSION: No acute fractures. Multilevel degenerative spondylosis as detailed above.
--- NOTE | 2018-06-24 12:42 | CT ---
Date of service: 06/24/2018 PROCEDURE: CT Pelvis without contrast HISTORY: Fall COMPARISON: Comparison made with plain film radiographs of the right hip 06/23/2018. TECHNIQUE: Contiguous axial images of the pelvis . No intravenous or oral contrast given. Coronal and sagittal reformats generated. Radiation dose: Total exam DLP = 665.32 mGy-cm. This CT exam was performed using one or more of the following dose reduction techniques: Automated exposure control, adjustment of the mA and/or kV according to patient size, and/or use of iterative reconstruction technique. FINDINGS: BLADDER: There is left-sided hydronephrosis and hydroureter the etiology which is unclear from this study as there are no distal ureteral calculi identified.. Urologic consultation is recommended. The urinary bladder is markedly distended with what appear to represent small diverticula along the superolateral border of the urinary bladder.; Rule out bladder outlet obstruction REPRODUCTIVE ORGANS: Prostate gland measures approximately 3.5 cm in transverse dimension. VISUALIZED BOWEL: Unremarkable. Findings suggest mild constipation. Multiple colonic diverticula the bulk of which arise from the distal descending and sigmoid colon. No definitive radiographic evidence of acute diverticulitis. PERITONEUM: Unremarkable, as visualized. No free fluid. No free air. There is a small fat containing umbilical hernia. LYMPH NODES: Unremarkable. No enlarged lymph nodes. BONES: Mildly displaced intertrochanteric fracture right femur. The right femoral head is appropriately located within the right acetabulum. Mild diffuse demineralization. Mild sclerotic incomplete fusion changes of both SI joints Multilevel degenerative spondylosis of the lumbosacral spine. Note is made of a expansile changes of the lower sacral/coccygeal central canal; rule out sacral arachnoid cyst or perineural-Tarlov cyst VASCULATURE: No aortic atherosclerotic calcification or mural plaque present. OTHER FINDINGS: None. IMPRESSION: Mildly displaced on intertrochanteric fracture right femur. Expansile changes of the lower sacral/coccygeal central canal; rule out sacral arachnoid cyst or perineural-Tarlov cyst..
--- NOTE | 2018-06-24 13:33 | CT ---
PROCEDURE: CT Angiography Chest, Abdomen and Pelvis with and without intravenous contrast HISTORY: syncope, widened mediastinum COMPARISON: None. TECHNIQUE: Contiguous axial images of the chest, abdomen and pelvis were obtained in the phase of aortic enhancement. A noncontrast enhanced CT of the chest was also obtained to evaluate for possible intramural thrombus. Coronal and sagittal reformats were generated. IV dose administered: 95 mL Visipaque 320 Radiation dose: Total exam DLP = 1058.25 mGy-cm. This CT exam was performed using one or more of the following dose reduction techniques: Automated exposure control, adjustment of the mA and/or kV according to patient size, and/or use of iterative reconstruction technique. FINDINGS: CT ANGIOGRAPHY OF THE CHEST WITH & WITHOUT CONTRAST: AORTA (CHEST AND ABDOMEN): There aneurysm of the ascending aorta measuring 4.7 x 4.8 cm. The abdominal aorta is normal in caliber without evidence for aneurysm. There is no evidence for dissection or rupture. No intramural thrombus identified in the thoracic aorta on the non-contrast CT of the chest. The celiac axis, superior mesenteric artery, inferior mesenteric artery and the renal arteries are widely patent. The pelvic arteries are unremarkable. LUNGS: The lungs are well inflated. There is dependent atelectasis in the lungs. No nodule, focal consolidation or mass. There are no endobronchial lesions. MEDIASTINUM: There is mild cardiomegaly and dense atherosclerotic aortic artery calcifications. No pericardial effusion. LYMPH NODES: No pathologic lymphadenopathy.Subcentimeter mediastinal lymph nodes are likely reactive. PLEURA: No pneumothorax. No pleural fluid. BONES: Within normal limits for the patient's age. OTHER FINDINGS: None. CT ANGIOGRAPHY OF THE ABDOMEN AND PELVIS WITH CONTRAST: Allowing for arterial phase. LIVER: Normal in size with homogeneous enhancement. No gross lesion or ductal dilatation. GALLBLADDER AND BILE DUCTS: The gallbladder is well distended. There are multiple gallstones. PANCREAS: Mild diffuse atrophy. No gross lesion or ductal dilatation. SPLEEN: Normal in size with homogeneous enhancement. ADRENALS: Normal in size. No discrete nodule or mass. KIDNEYS AND URETERS: Normal in size with homogeneous enhancement. No right hydronephrosis. No solid mass. There is severe left hydronephrosis, moderate diffuse dilatation of the left ureteral VASCULATURE: No aortic aneurysm. No aortic atherosclerotic calcification or mural plaque present. STOMACH AND BOWEL: The small bowel loops are normal in caliber. There is left colonic diverticulosis without CT evidence for acute diverticulitis. No bowel dilatation or wall thickening. APPENDIX: Normal appendix. PERITONEUM: No free fluid. No free air. LYMPH NODES: No enlarged lymph nodes. BLADDER: The urinary bladder is over distended and grossly normal in appearance. REPRODUCTIVE: The prostate gland is normal in size BONES: There is an acute comminuted impacted right intertrochanteric fracture. There is an acute longitudinal fracture in the left spinous process of L5. OTHER FINDINGS: There are bilateral small fat containing inguinal hernias. IMPRESSION: 1. No CTA evidence for aortic dissection. No evidence of abdominal aortic aneurysm. 2. 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 3. Cholelithiasis. 4. Over distended urinary bladder. Severe left hydronephrosis and moderate diffuse dilatation of the left ureteral without evidence for obstructing stone or mass. 5. Acute comminuted impacted right intertrochanteric fracture. 6. Left colonic diverticulosis without CT evidence for acute diverticulitis. A preliminary report was provided by [employer].
--- NOTE | 2018-06-24 14:06 | US ---
Date of service: 06/24/2018 PROCEDURE: Duplex ultrasound of the carotid and vertebral arteries. HISTORY: Syncope COMPARISON: None available. TECHNIQUE: Grayscale and duplex Doppler evaluation of the cervical carotid and vertebral arteries were performed. The common carotid, carotid bifurcations and cervical ICA and proximal ECA were evaluated. The vertebral arteries were evaluated for gross patency and direction. FINDINGS: RIGHT CAROTID ARTERIES: Common Carotid Artery: Normal. Maximal flow velocity of 61.4 cm/s. Carotid Bifurcation: Normal. Internal Carotid Artery:Normal. Maximal flow velocity of 47.1 cm/s. External Carotid Artery (proximal branches): Normal. Maximal flow velocity of 56.8 cm/s. ICA/CCA Ratio: 0.9 LEFT CAROTID ARTERIES: Common Carotid Artery: Normal. Maximal flow velocity of the is 59.1 cm/s. Carotid Bifurcation: Normal. Internal Carotid Artery:Normal. Maximal flow velocity of 43.2 cm/s. External Carotid Artery (proximal branches): Normal. Maximal flow velocity of 42.2 cm/s. ICA/CCA Ratio: 1.0 VERTEBRAL ARTERIES: Right Vertebral Artery: Patent. Antegrade flow. Left Vertebral Artery: Patent. Antegrade flow. OTHER FINDINGS: No atherosclerotic calcification present IMPRESSION: Normal Duplex Doppler of the cervical carotid and vertebral arteries.
--- NOTE | 2018-06-24 14:25 | RAD ---
Date of service: 06/24/2018 PROCEDURE: Right hip and pelvis HISTORY: Right r hip IT fx COMPARISON: Comparison made with prior CT scan of the pelvis dated 06/24/2018 at 04:05. TECHNIQUE: Frontal view of the pelvis and frontal/frogleg lateral views of the right hip performed. FINDINGS: Redemonstrated is a mildly displaced intertrochanteric fracture of the right hip with mild varus deformity angulation deformity. The right and left femoral heads are appropriately located within the respective acetabula. No other acute fractures are identified. Mild degenerative osteoarthritis both hip joints. Degenerative changes of the symphysis and both SI joints as well as the lower lumbosacral spine Diffuse demineralization. Note made of calcified injection granuloma right buttock IMPRESSION: Intertrochanteric fracture right hip with mild varus angulation deformity.
--- NOTE | 2018-06-24 16:29 | CP.PCM.CON ---
History of Present Illness - History of Present Illness History of Present Illness: Neurology Consultation Note: Consult requested by Dr. Ocampo The patient is an 88-year-old man with a past medical history of depression, dementia, hypertension, HLD, who got up to go to the bathroom last night, and fell down for an unknown reason. His called EMS and when they arrived they noticed the patient is on the floor and tried to pick him up. He then had some abnormal movements, became pale, and urinated on himself. Review of Systems - Constitutional Constitutional: As Per HPI - EENT Eyes: absent: As Per HPI, Blind Spots, Blurred Vision, Change in Vision, Decreased Night Vision, Diplopia, Discharge, Dry Eye, Exophthalmos, Floaters, Irritation, Itchy Eyes, Loss of Peripheral Vision, Pain, Photophobia, Requires Corrective Lenses, Sees Flashes, Spots in Vision, Tunnel Vision, Other Visual Disturbances, Loss of Vision, Other Ears: absent: As Per HPI, Decreased Hearing, Ear Discharge, Ear Pain, Tinnitus, Abnormal Hearing, Disequilibrium, Dizziness, Other Nose/Mouth/Throat: absent: As Per HPI, Epistaxis, Nasal Congestion, Nasal Discharge, Nasal Obstruction, Nasal Trauma, Nose Pain, Post Nasal Drip, Sinus Pain, Sinus Pressure, Bleeding Gums, Change in Voice, Dental Pain, Dry Mouth, Dysphagia, Halitosis, Hoarsness, Lip Swelling, Mouth Lesions, Mouth Pain, Odynophagia, Sore Throat, Throat Swelling, Tongue Swelling, Facial Pain, Neck Pain, Neck Mass, Other - Cardiovascular Cardiovascular: absent: As Per HPI, Acrocyanosis, Chest Pain, Chest Pain at Rest, Chest Pain with Activity, Claudication, Diaphoresis, Dyspnea, Dyspnea on Exertion, Edema, Irregular Heart Rhythm, Pain Radiating to Arm/Neck/Jaw, Leg Edema, Leg Ulcers, Lightheadedness, Orthopnea, Palpitations, Paroxysmal Nocturnal Dyspnea, Pedal Edema, Radiating Pain, Rapid Heart Rate, Slow Heart Rate, Syncope, Other - Respiratory Respiratory: absent: As Per HPI, Cough, Dyspnea, Hemoptysis, Dyspnea on Exertion, Wheezing, Snoring, Stridor, Pain on Inspiration, Chest Congestion, Excessive Mucous Production, Change in Mucous Color, Pain with Coughing, Other - Gastrointestinal Gastrointestinal: absent: As Per HPI, Abdominal Pain, Belching, Bloating, Change in Bowel Habits, Change in Stool Character, Coffee Ground Emesis, Constipation, Cramping, Diarrhea, Dyspepsia, Dysphagia, Early Satiety, Excessive Flatus, Fecal Incontinence, Heartburn, Hematemesis, Hematochezia, Loose Stools, Melena, Nausea, Odynophagia, Temesmus, Vomiting, Other - Musculoskeletal Musculoskeletal: absent: As Per HPI, Abnormal Gait, Arthralgias, Atrophy, Back Pain, Deformity, Joint Swelling, Limited Range of Motion, Loss of Height, Muscle Cramps, Muscle Weakness, Myalgias, Neck Pain, Numbness, Radiating Pain into Limb, Stiffness, Tingling, Other - Integumentary Integumentary: absent: As Per HPI, Acne, Alopecia, Bleeding Lesions, Change in Hair, Change in Nails, Change in Pigmentation, Changing Lesions, Dry Skin, Erythema, Furuncle, Hirsutism, Lesions, New Lesions, Non-Healing Lesions, Photosensitivity, Pruritus, Rash, Skin Pain, Skin Ulcer, Sores, Striae, Swelling, Unusual Bruising, Wounds, Jaundice, Other - Neurological Neurological: As Per HPI - Psychiatric Psychiatric: absent: As Per HPI, Abnormal Sleep Pattern, Anhedonia, Anxiety, Auditory Hallucinations, Behavioral Changes, Change in Appetite, Change in Libido, Confusion, Depression, Difficulty Concentrating, Hallucinations, Homicidal Ideation, Hopelessness, Irritability, Memory Loss, Mood Swings, Panic Attacks, Paranoia, Suicidal Ideation, Visual Hallucinations, Tactile Hallucinations, Other - Endocrine Endocrine: absent: As Per HPI, Change in Body Appearance, Change in Libido, Cold Intolorance, Deepening of Voice, Excessive Sweating, Fatigue, Flushing, Heat Intolorance, Increase in Ring/Shoe/Hat Size, Palpitations, Polydipsia, Polyphagia, Polyuria, Other - Hematologic/Lymphatic Hematologic: absent: As Per HPI, Easy Bleeding, Easy Bruising, Lymphadenopathy, Other Past Patient History - Past Medical History & Family History Past Family History: Reviewed and not pertinent - Past Social History Smoking Status: Never Smoked - CARDIAC Hx Cardiac Disorders: Yes - PULMONARY Hx Respiratory Disorders: No - NEUROLOGICAL Hx Neurological Disorder: No - HEENT Hx HEENT Problems: No - RENAL Hx Chronic Kidney Disease: No - ENDOCRINE/METABOLIC Hx Endocrine Disorders: No - HEMATOLOGICAL/ONCOLOGICAL Hx Blood Disorders: No - INTEGUMENTARY Hx Dermatological Problems: No - MUSCULOSKELETAL/RHEUMATOLOGICAL Hx Arthritis: Yes (knees) - GASTROINTESTINAL Hx Gastrointestinal Disorders: No - GENITOURINARY/GYNECOLOGICAL Hx Genitourinary Disorders: Yes Hx Prostate Problems: Yes - PSYCHIATRIC Hx Anxiety: Yes Hx Depression: Yes - SURGICAL HISTORY Hx Surgeries: No - ANESTHESIA Hx Anesthesia: No Meds Allergies/Adverse Reactions: Allergies Allergy/AdvReac Type Severity Reaction Status Date / Time No Known Allergies Allergy Verified 06/22/18 23:43 - Medications Medications: Current Medications Acetaminophen (Tylenol 325mg Tab) 650 mg PO Q6 PRN PRN Reason: Pain, Mild (1-3) Amlodipine Besylate (Norvasc) 5 mg PO DAILY [facility] Last Admin: 06/24/18 11:34 Dose: 5 mg Clonazepam (Klonopin) 0.5 mg PO Q12H PRN PRN Reason: Anxiety Diltiazem HCl (Cardizem) 30 mg PO QID [facility] Last Admin: 06/24/18 13:23 Dose: Not Given Famotidine (Pepcid) 20 mg PO BID [facility] Last Admin: 06/24/18 11:35 Dose: 20 mg Sodium Chloride (Sodium Chloride 0.9%) 1,000 mls @ 84 mls/hr IV .[id number] [facility] Stop: 06/25/18 07:27 Last Admin: 06/24/18 08:00 Dose: 84 mls/hr Sodium Chloride (Sodium Chloride 0.9%) 1,000 mls @ 80 mls/hr IV .[id number] [facility] Stop: 06/25/18 07:27 Last Admin: 06/24/18 11:42 Dose: Not Given Piperacillin Sod/Tazobactam (Sod 3.375 gm/ Sodium Chloride) 100 mls @ 100 mls/hr IVPB Q6 [facility]; Protocol Last Admin: 06/24/18 11:45 Dose: 100 mls/hr Ketorolac Tromethamine (Toradol) 30 mg IVP Q6 PRN PRN Reason: Pain, moderate (4-7) Oxycodone/Acetaminophen (Percocet 5/325 Mg Tab) 1 tab PO Q4 PRN PRN Reason: Pain, severe (8-10) Stop: 06/27/18 06:38 Last Admin: 06/24/18 13:12 Dose: 1 tab Physical Exam - Constitutional Appears: Confused, Cachectic - Head Exam Additional comments: Laceration over the top of the cranium - Eye Exam Eye Exam: EOMI, Normal appearance, PERRL - ENT Exam ENT Exam: Mucous Membranes Moist, Normal Exam - Neck Exam Neck exam: Positive for: Normal Inspection - Respiratory Exam Respiratory Exam: Clear to Auscultation Bilateral, NORMAL BREATHING PATTERN - Cardiovascular Exam Cardiovascular Exam: REGULAR RHYTHM, +S1, +S2 - GI/Abdominal Exam GI & Abdominal Exam: Normal Bowel Sounds, Soft. absent: Tenderness - Neurological Exam Neurological exam: Abnormal Gait, Altered, CN II-XII Intact Additional comments: Right lower extremity weakness due to hip pain. Generalized weakness. - Psychiatric Exam Psychiatric exam: Normal Affect, Normal Mood - Skin Skin Exam: Dry, Intact, Normal Color, Warm Results - Vital Signs Recent Vital Signs: Last Vital Signs Temp 99.3 F 06/24/18 15:31 Pulse 99 H 06/24/18 15:31 Resp 16 06/24/18 15:31 BP 106/68 06/24/18 15:31 Pulse Ox 94 L 06/24/18 15:31 - Labs Result Diagrams: 06/24/18 03:55 06/24/18 03:55 Labs: Laboratory Results - last 24 hr 06/24/18 06/24/18 06/24/18 03:55 03:55 03:55 WBC 11.4 H RBC 4.31 L Hgb 12.7 Hct 38.6 MCV 89.4 MCH 29.5 MCHC 33.0 RDW 13.0 Plt Count 261 MPV 7.5 Neut % (Auto) 85.6 H Lymph % (Auto) 7.9 L Eagle % (Auto) 5.5 Eos % (Auto) 0.6 Baso % (Auto) 0.4 Neut # (Auto) 9.8 H Lymph # (Auto) 0.9 L Eagle # (Auto) 0.6 Eos # (Auto) 0.1 Baso # (Auto) 0.0 Neutrophils % (Manual) 85 H Lymphocytes % (Manual) 5 L Reactive Lymphs % 2 H Monocytes % (Manual) 7 Myelocytes % 1 H Platelet Estimate Normal Large Platelets Present Spherocytes Slight PT 14.1 H INR 1.2 APTT 28.4 Sodium 128 L Potassium 4.1 Chloride 92 L Carbon Dioxide 25 Anion Gap 15 BUN 32 H Creatinine 1.0 Est GFR ( Amer) > 60 Est GFR (Non-Af Amer) > 60 Random Glucose 174 H Lactic Acid Calcium 8.8 Total Bilirubin Direct Bilirubin AST ALT Alkaline Phosphatase Troponin I 0.0210 Total Protein Albumin Globulin Albumin/Globulin Ratio 25-OH Vitamin D Total Procalcitonin Urine Color Urine Clarity Urine pH Ur Specific Jackson Urine Protein Urine Glucose (UA) Urine Ketones Urine Blood Urine Nitrate Urine Bilirubin Urine Urobilinogen Ur Leukocyte Esterase Urine RBC (Auto) Urine Microscopic WBC Blood Type Blood Type Confirm Antibody Screen BBK History Checked 06/24/18 06/24/18 06/24/18 03:55 05:45 07:46 WBC RBC Hgb Hct MCV MCH MCHC RDW Plt Count MPV Neut % (Auto) Lymph % (Auto) Eagle % (Auto) Eos % (Auto) Baso % (Auto) Neut # (Auto) Lymph # (Auto) Eagle # (Auto) Eos # (Auto) Baso # (Auto) Neutrophils % (Manual) Lymphocytes % (Manual) Reactive Lymphs % Monocytes % (Manual) Myelocytes % Platelet Estimate Large Platelets Spherocytes PT INR APTT Sodium Potassium Chloride Carbon Dioxide Anion Gap BUN Creatinine Est GFR ( Amer) Est GFR (Non-Af Amer) Random Glucose Lactic Acid 1.4 Calcium Total Bilirubin 1.0 Direct Bilirubin 0.2 AST 59 ALT 24 Alkaline Phosphatase 66 Troponin I Total Protein 7.1 Albumin 3.7 Globulin 3.4 Albumin/Globulin Ratio 1.1 25-OH Vitamin D Total Procalcitonin Urine Color Yellow Urine Clarity Clear Urine pH 6.0 Ur Specific Jackson 1.019 Urine Protein 100 Urine Glucose (UA) Neg Urine Ketones Trace Urine Blood Negative Urine Nitrate Negative Urine Bilirubin Negative Urine Urobilinogen 0.2-1.0 Ur Leukocyte Esterase Neg Urine RBC (Auto) 3 Urine Microscopic WBC < 1 Blood Type Blood Type Confirm Antibody Screen BBK History Checked 06/24/18 06/24/18 06/24/18 09:08 12:20 12:20 WBC RBC Hgb Hct MCV MCH MCHC RDW Plt Count MPV Neut % (Auto) Lymph % (Auto) Eagle % (Auto) Eos % (Auto) Baso % (Auto) Neut # (Auto) Lymph # (Auto) Eagle # (Auto) Eos # (Auto) Baso # (Auto) Neutrophils % (Manual) Lymphocytes % (Manual) Reactive Lymphs % Monocytes % (Manual) Myelocytes % Platelet Estimate Large Platelets Spherocytes PT INR APTT Sodium Potassium Chloride Carbon Dioxide Anion Gap BUN Creatinine Est GFR ( Amer) Est GFR (Non-Af Amer) Random Glucose Lactic Acid Calcium Total Bilirubin Direct Bilirubin AST ALT Alkaline Phosphatase Troponin I Total Protein Albumin Globulin Albumin/Globulin Ratio 25-OH Vitamin D Total 34.7 Procalcitonin < 0.05 L Urine Color Urine Clarity Urine pH Ur Specific Jackson Urine Protein Urine Glucose (UA) Urine Ketones Urine Blood Urine Nitrate Urine Bilirubin Urine Urobilinogen Ur Leukocyte Esterase Urine RBC (Auto) Urine Microscopic WBC Blood Type A POSITIVE Blood Type Confirm Antibody Screen Negative BBK History Checked No verified bt 06/24/18 13:40 WBC RBC Hgb Hct MCV MCH MCHC RDW Plt Count MPV Neut % (Auto) Lymph % (Auto) Eagle % (Auto) Eos % (Auto) Baso % (Auto) Neut # (Auto) Lymph # (Auto) Eagle # (Auto) Eos # (Auto) Baso # (Auto) Neutrophils % (Manual) Lymphocytes % (Manual) Reactive Lymphs % Monocytes % (Manual) Myelocytes % Platelet Estimate Large Platelets Spherocytes PT INR APTT Sodium Potassium Chloride Carbon Dioxide Anion Gap BUN Creatinine Est GFR ( Amer) Est GFR (Non-Af Amer) Random Glucose Lactic Acid Calcium Total Bilirubin Direct Bilirubin AST ALT Alkaline Phosphatase Troponin I Total Protein Albumin Globulin Albumin/Globulin Ratio 25-OH Vitamin D Total Procalcitonin Urine Color Urine Clarity Urine pH Ur Specific Jackson Urine Protein Urine Glucose (UA) Urine Ketones Urine Blood Urine Nitrate Urine Bilirubin Urine Urobilinogen Ur Leukocyte Esterase Urine RBC (Auto) Urine Microscopic WBC Blood Type Blood Type Confirm A POSITIVE Antibody Screen BBK History Checked Assessment & Plan (1) Syncope Assessment and Plan: The history is consistent with possible seizure or syncope with head injury. The patient does not recall if he lost consciousness. He has a pacemaker and cannot have MRI. I recommend obtaining an EEG for further evaluation. Cardiac work-up is recommended since the event was likely vaso-vagal syncope and the patient has a cardiac history. PT/OT eval is needed as well. I would recommend starting the patient on anticoagulation for stroke prevention in the setting of atrial fibrillation if there is no surgery planned and this is agreed with by cardiology. Thank you for this consultation. Status: Acute
--- NOTE | 2018-06-24 17:38 | CARD ---
APPROVED REPORT Date of service: 06/24/2018 EXAM: Two-dimensional and M-mode echocardiogram with Doppler and color Doppler. Other Information Quality : FairRhythm : Tachycardia Technically limited study due to Limited study,poor window. INDICATION Syncope 2D DIMENSIONS IVSd1.41 (0.7-1.1cm)LVDd3.86 (3.9-5.9cm) PWd1.20 (0.7-1.1cm)IVSs1.62 (0.8-1.2cm) LVDs3.93 (2.5-4.0cm)FS (%) 1.7 % PWs1.35 (0.8-1.2cm) Aortic Valve AoV Peak Yaffbnvb692.0cm/sAoV VTI16.0cmAO Peak GR.8mmHg LVOT Peak Sujfksjl934.3cm/sLVOT VTI14.23cmAO Mean GR.4mmHg Mitral Valve E/A ratio0.0 TDI E/Lateral E'0.0E/Medial E'0.0 LEFT VENTRICLE The left ventricle is normal size. There is mild concentric left ventricular hypertrophy. The left ventricular systolic function is normal. The estimated ejection fraction is 50-55% No regional wall motion abnormalities noted.. Transmitral Doppler flow pattern is Grade I-abnormal relaxation pattern. No left ventricle thrombus noted on this study. There is no ventricular septal defect visualized. There is no left ventricular aneurysm. There is no mass noted in the left ventricle. RIGHT VENTRICLE The right ventricle is normal size. There is normal right ventricular wall thickness. The right ventricular systolic function is normal. ATRIA The left atrium size is normal. The right atrium size is normal. The interatrial septum is intact with no evidence for an atrial septal defect. AORTIC VALVE The aortic valve is normal in structure. Mild aortic regurgitation is present. There is no aortic valvular stenosis. There is no aortic valvular vegetation. MITRAL VALVE The mitral valve is normal in structure. There is no evidence of mitral valve prolapse. There is no mitral valve stenosis. There is no mitral valve regurgitation noted. TRICUSPID VALVE The tricuspid valve is normal in structure. There is no tricuspid valve regurgitation noted. There is no tricuspid valve prolapse or vegetation. There is no tricuspid valve stenosis. PULMONIC VALVE The pulmonary valve is normal in structure. There is no pulmonic valvular regurgitation. There is no pulmonic valvular stenosis. GREAT VESSELS The aortic root is normal in size. The ascending aorta is normal in size. The pulmonary artery is normal. The IVC is normal in size and collapses >50% with inspiration. PERICARDIAL EFFUSION There is no pericardial effusion. There is no pleural effusion. <Conclusion> Technically difficult study. There is mild concentric left ventricular hypertrophy. The estimated ejection fraction is 50-55% Transmitral Doppler flow pattern is Grade I-abnormal relaxation pattern. The left atrium size is normal. Mild aortic regurgitation is present. There is no tricuspid valve regurgitation noted. The IVC is normal in size and collapses >50% with inspiration.
--- NOTE | 2018-06-25 01:07 | CON ---
DATE: 06/24/2018 CARDIOLOGY CONSULTATION REASON FOR CONSULTATION: This is a preoperative evaluation for open reduction and internal fixation of right intertrochanteric fracture. HISTORY OF PRESENT ILLNESS: The history was obtained from the patient's son who was at the bedside. The patient is an 88-year-old male who sustained a fall two days ago and was brought to the emergency room at [facility], had stitches to laceration in the left forearm and also jhoan to the back of his scalp and was discharged home. He sustained another fall at home. The patient lives with his the patient was brought to the emergency room and was diagnosed with right intertrochanteric fracture with mild varus angulation. According to the son and , the patient has a knee problem that caused him to fall each time he attempted to leave bed, according to them. There was no definite loss of consciousness in either falls and the family are not aware of any prior cardiac history or history of stroke. According to the son, the patient has been depressed lately with poor food intake. SOCIAL HISTORY: Nonsmoker. He lives with his who is an elderly and takes full care of him. MEDICATIONS: Cardizem 30 mg p.o. four times daily, Norvasc 5 mg once a day, Zosyn 3.375 g every 6 hours. PHYSICAL EXAMINATION: GENERAL: The patient is an elderly male who does not appear to be in acute distress. VITAL SIGNS: Blood pressure 106/68, heart rate 99, temperature 99.3, respirations 16. HEENT: Stapled posterior scalp wound. NECK: No JVD. CHEST: Clear. HEART: S1 and S2, regular. ABDOMEN: Soft. EXTREMITIES: No edema. LABORATORY DATA: Today's SMA-7: Sodium 128, potassium 4.1, chloride 92, CO2 of 25, glucose 174, BUN 32, creatinine 1. One set of troponin is negative. INR is 1.2, PTT 28.4. Hemoglobin and hematocrit are 12.7 and 38.6, white count 11.4, platelet count 161,000. EKG revealed sinus tachycardia at a rate of 107, left anterior fascicular block, minimal voltage criteria for LVH. Carotid Doppler, normal study. CT scan with dissection protocol revealed no CT angio evidence of aortic dissection, no abdominal aortic aneurysm. A 4.7 x 4.8 cm aneurysm of the ascending thoracic aorta, cholelithiasis, acute comminuted impacted right intertrochanteric fracture, left colon diverticulosis without evidence of diverticulitis. Head CT scan without contrast, no acute intracranial abnormality, chronic microangiopathic changes. Pelvic CT scan, mildly displaced intertrochanteric fracture of the right femur, extensile changes of the lower sacrococcygeal central canal, rule out sacral arachnoid cyst. Cervical spine CT scan, no acute fracture. Chest x-ray, no acute pulmonary disease, severe cardiomegaly and mild pulmonary vascular congestion. ASSESSMENT: 1. Status post fall with right intertrochanteric fracture. 2. Thoracic aortic aneurysm. 3. Hyponatremia. 4. Diabetes mellitus. 5. Depression. RECOMMENDATIONS: Continue current Norvasc 5 mg once a day, IV Zosyn at 3.375 g intravenously every 6 hours. I will follow the echocardiographic study prior to risk assessment for general anesthesia for the expected hip surgery. Janes Velasquez MD
[2018-06-25] MEDS: Piperacillin/Tazobact 3.375 GM in Sodium Chloride 0.9% 100 ML IVPB SCH ×4 (04:10→22:32)
[2018-06-25 06:22] LABS: BASO # 0.1 K/uL (0.0-0.2); BASO % 0.5 % (0.0-2.0); EOS # 0.4 K/uL (0.0-0.7); EOS % 3.5 % (0.0-4.0); HEMOGLOBIN 10.6 g/dL (12.0-18.0); LYMPH # 2.2 K/uL (1.0-4.3); LYMPH % 20.3 % (20.0-40.0); MEAN CORPUSCULAR HEMOGLOBIN 29.7 pg (27.0-31.0); MEAN CORPUSCULAR HGB CONC 33.3 g/dL (33.0-37.0); MEAN PLATELET VOLUME 7.3 fl (7.2-11.7); MONO # 1.1 K/uL (0.0-0.8); MONO % 9.8 % (0.0-10.0); NEUT # 7.2 K/uL (1.8-7.0); NEUT % 65.9 % (50.0-75.0); RBC 3.58 Mil/uL (4.40-5.90); RED CELL DISTRIBUTION WIDTH 13.1 % (11.5-14.5)
[2018-06-25 06:38] LABS: ALT/SGPT 24 U/L (21-72); AST/SGOT 25 U/L (17-59); BLOOD UREA NITROGEN 35 mg/dl (9-20); CALCIUM 7.9 mg/dL (8.4-10.2); GFR NON-AFRICAN AMERICAN > 60
--- NOTE | 2018-06-25 07:27 | CP.PCM.PN ---
<Cameron Villafana - Last Filed: 06/25/18 12:29> Subjective - Date & Time of Evaluation Date of Evaluation: 06/25/18 Time of Evaluation: 07:27 - Subjective Subjective: Pt seen and examined at bedside this AM. Denies acute overnight events. Tolerating PO diet. Reports R sided distal thigh pain. Objective - Vital Signs/Intake and Output Vital Signs (last 24 hours): Temp Pulse Resp BP Pulse Ox 98.4 F 91 H 16 134/86 95 06/25/18 05:54 06/25/18 05:54 06/25/18 05:54 06/25/18 05:54 06/25/18 05:54 Intake and Output: 06/25/18 06/25/18 06:59 18:59 Intake Total 1070 Output Total 300 Balance 770 - Medications Medications: Current Medications Acetaminophen (Tylenol 325mg Tab) 650 mg PO Q6 PRN PRN Reason: Pain, Mild (1-3) Amlodipine Besylate (Norvasc) 5 mg PO DAILY [facility] Last Admin: 06/24/18 11:34 Dose: 5 mg Clonazepam (Klonopin) 0.5 mg PO Q12H PRN PRN Reason: Anxiety Diltiazem HCl (Cardizem) 30 mg PO QID [facility] Last Admin: 06/24/18 21:07 Dose: Not Given Famotidine (Pepcid) 20 mg PO BID [facility] Last Admin: 06/24/18 16:43 Dose: 20 mg Finasteride (Proscar) 5 mg PO DAILY [facility] Last Admin: 06/24/18 18:32 Dose: 5 mg Piperacillin Sod/Tazobactam (Sod 3.375 gm/ Sodium Chloride) 100 mls @ 100 mls/hr IVPB Q6 [facility]; Protocol Last Admin: 06/25/18 04:10 Dose: 100 mls/hr Ketorolac Tromethamine (Toradol) 30 mg IVP Q6 PRN PRN Reason: Pain, moderate (4-7) Last Admin: 06/25/18 05:23 Dose: 30 mg Oxycodone/Acetaminophen (Percocet 5/325 Mg Tab) 1 tab PO Q4 PRN PRN Reason: Pain, severe (8-10) Stop: 06/27/18 06:38 Last Admin: 06/24/18 13:12 Dose: 1 tab Tamsulosin HCl (Flomax) 0.4 mg PO HS [facility] Last Admin: 06/24/18 21:09 Dose: 0.4 mg - Labs Labs: 06/25/18 05:40 06/25/18 05:40 PT 14.1 Seconds (9.8-13.1) H 06/24/18 03:55 INR 1.2 06/24/18 03:55 APTT 28.4 Seconds (25.6-37.1) 06/24/18 03:55 - Constitutional Appears: Non-toxic - Eye Exam Eye Exam: EOMI - ENT Exam ENT Exam: Mucous Membranes Moist - Respiratory Exam Respiratory Exam: Clear to Ausculation Bilateral, NORMAL BREATHING PATTERN - Cardiovascular Exam Cardiovascular Exam: +S1, +S2 - GI/Abdominal Exam GI & Abdominal Exam: Soft, Tenderness, Normal Bowel Sounds - Extremities Exam Extremities Exam: Normal Capillary Refill, Tenderness (at Right distal thigh ). absent: Calf Tenderness - Neurological Exam Neurological Exam: Alert, Awake, Oriented x3. absent: Normal Gait - Psychiatric Exam Psychiatric exam: Normal Affect, Normal Mood Assessment and Plan - Assessment and Plan (Free Text) Assessment: Pt is an 88 y/o male with hx of HTN, HLD, Anxiety, and Depression brought to ED by EMS after episode of syncopy. Plan: -EKG Afibb w/ RVR -Head CT: no acute findings -Pelvis CT: Acute displaced R. Trochanteric Fx; Urinary Retention -Cervical Spine CT: Benign compression C4-C6, Chronic Fx of T1, Osteopenia, No acute bone pathology -CXR: No active pulmonary disease. Severe cardiomegaly and mild pulmonary venous congestion -CT Dissection: No PE or aortic dissection, aneurysmal ascending aorta (5.4cm), Mild CHF -UA: pending -UCX: negative -BCX: NG x24 x2 -Procalcitonin: <0.05 Syncopy -Likely secondary to Afib/Vaso-vagal -Syncopy workup: Orthostatic, Carotid US BL, Echo -Less likely seizure, unclear hx from EMS, pt was not post ictal, urinary incontinence was likely overflow incont, no hx of seizures in past. Lactic acid negative -Cardiology Consulted -Neurology: Dr. Castanon: EEG pending -Seizure and fall precautions New onset Afib -Afibb w/ RVR on presentation -Rate and rhythm controlled after Cardizem 10mg IV and 30 po once in ED -Will continue with Cardizem 30 QID po; Monitor BP closely -Cardiac monitoring -Cardiology consult: Dr. Mac: Continue norvasc 5 mg qD; Zosyn at 3.375 iv Q6; ECHO; -F/U ECHO Acute displaced R. Trochanteric Fx -Ortho: ORIF 06/28/2018 after cardio/neuro/medical optimization -IVF for elevated BUN -maintain HB >10 for surgery -Pain management: Toradol; Hold prior to surgery Leukocytes w/ neutrophilic predominance -Unclear if pt has underlying infectious process -Zosyn -f/u U/A,Ucx, Bcx, Procalcitonin Cholelithiasis: -No abdo pain -Surgery consulted: no surgery indicated; f/u outpatient Azotemia -Mild dehydration -hx: HypoNatremia and hypochloremia; likely contraction metabolic alkalosis -NS at 100 mls/hr Nondisplaced Fx L5 spineous process -Neurosurgery: No surgery at this time -No Red Flag signs on exam Urinary Retention Incontinence -Pt likely has overflow incontinence from BPH causing bladder outflow obstruction -He reports hx of "Prostate problems" -Proscar, Flomax, -Cobb to be discontinued today -F/U UA and Ucx HTN -C/W Norvasc -Monitor BP Aneurysm ascending aorta (5.4cm) -No sign of rupture or bleed, hemodynamically stable, no urgent management needed -Given significant size, may need endovascular repair in future Anxiety -Klonipin prn DVT ppx -SCD and lovenox (Last dose thursday for OR thursday) -High fall risk, recent head trauma, would avoid anticoagulants unless otherwise advised by Cardio for afibb Diet Cardiac DNR/DNI: Surrogate decision maker: matias Horner <Cassandra Dickerson - Last Filed: 06/25/18 17:12> Objective - Vital Signs/Intake and Output Vital Signs (last 24 hours): Temp Pulse Resp BP Pulse Ox 98.1 F 108 H 18 144/81 93 L 06/25/18 16:12 06/25/18 16:45 06/25/18 16:45 06/25/18 16:45 06/25/18 16:45 Intake and Output: 06/25/18 06/25/18 06:59 18:59 Intake Total 1070 Output Total 300 Balance 770 - Medications Medications: Current Medications Acetaminophen (Tylenol 325mg Tab) 650 mg PO Q6 PRN PRN Reason: Pain, Mild (1-3) Amlodipine Besylate (Norvasc) 5 mg PO DAILY [facility] Last Admin: 06/25/18 08:37 Dose: 5 mg Clonazepam (Klonopin) 0.5 mg PO Q12H PRN PRN Reason: Anxiety Diltiazem HCl (Cardizem) 30 mg PO QID [facility] Last Admin: 06/25/18 16:45 Dose: 30 mg Enoxaparin Sodium (Lovenox) 40 mg SC DAILY [facility]; Protocol Last Admin: 06/25/18 13:01 Dose: 40 mg Famotidine (Pepcid) 20 mg PO BID [facility] Last Admin: 06/25/18 16:46 Dose: 20 mg Finasteride (Proscar) 5 mg PO DAILY [facility] Last Admin: 06/25/18 08:37 Dose: 5 mg Piperacillin Sod/Tazobactam (Sod 3.375 gm/ Sodium Chloride) 100 mls @ 100 mls/hr IVPB Q6 [facility]; Protocol Last Admin: 06/25/18 16:49 Dose: 100 mls/hr Sodium Chloride (Sodium Chloride 0.9%) 1,000 mls @ 100 mls/hr IV .Q10H [facility] Stop: 06/26/18 05:59 Last Admin: 06/25/18 13:02 Dose: 100 mls/hr Ketorolac Tromethamine (Toradol) 30 mg IVP Q6 PRN PRN Reason: Pain, moderate (4-7) Last Admin: 06/25/18 05:23 Dose: 30 mg Metoprolol Succinate (Toprol Xl) 25 mg PO DAILY [facility] Oxycodone/Acetaminophen (Percocet 5/325 Mg Tab) 1 tab PO Q4 PRN PRN Reason: Pain, severe (8-10) Stop: 06/27/18 06:38 Last Admin: 06/24/18 13:12 Dose: 1 tab Tamsulosin HCl (Flomax) 0.4 mg PO HS [facility] Last Admin: 06/24/18 21:09 Dose: 0.4 mg - Labs Labs: 06/25/18 05:40 06/25/18 05:40 PT 14.1 Seconds (9.8-13.1) H 06/24/18 03:55 INR 1.2 06/24/18 03:55 APTT 28.4 Seconds (25.6-37.1) 06/24/18 03:55 Attending/Attestation - Attestation I have personally seen and examined this patient.: Yes I have fully participated in the care of the patient.: Yes I have reviewed all pertinent clinical information, including history, physical exam and plan: Yes Notes (Text): Intertrochanteric Hip Fracture Fall ? Syncope New Onset A Fib ascending Thoracic Aorta 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 Acute Cholecytstitis ruled out Anemia prob chronic, and dilutional due to IVF hydration Hydronephrosis, left L5 Spinous Process Fracture Prostatic Enlargement Depression - Ortho consulted- plan for surgery on Thursday -Cardio consulted for pre op eval -cont Cardizem PO , add low dose Toprol - DVT proph -d/c Cobb cath - start Flomax, Proscar
--- NOTE | 2018-06-25 09:57 | CP.PCM.PN ---
Subjective - Date & Time of Evaluation Date of Evaluation: 06/25/18 Time of Evaluation: 09:55 - Subjective Subjective: Patient complains of pain in hip when directed. Moves himself well in bed with assist. Objective - Vital Signs/Intake and Output Vital Signs (last 24 hours): Temp Pulse Resp BP Pulse Ox 98.4 F 72 18 125/88 98 06/25/18 05:54 06/25/18 08:37 06/25/18 08:36 06/25/18 08:37 06/25/18 08:36 Intake and Output: 06/25/18 06/25/18 06:59 18:59 Intake Total 1070 Output Total 300 Balance 770 - Medications Medications: Current Medications Acetaminophen (Tylenol 325mg Tab) 650 mg PO Q6 PRN PRN Reason: Pain, Mild (1-3) Amlodipine Besylate (Norvasc) 5 mg PO DAILY [facility] Last Admin: 06/25/18 08:37 Dose: 5 mg Clonazepam (Klonopin) 0.5 mg PO Q12H PRN PRN Reason: Anxiety Diltiazem HCl (Cardizem) 30 mg PO QID [facility] Last Admin: 06/25/18 08:36 Dose: 30 mg Enoxaparin Sodium (Lovenox) 40 mg SC DAILY [facility]; Protocol Famotidine (Pepcid) 20 mg PO BID [facility] Last Admin: 06/25/18 08:37 Dose: 20 mg Finasteride (Proscar) 5 mg PO DAILY [facility] Last Admin: 06/25/18 08:37 Dose: 5 mg Piperacillin Sod/Tazobactam (Sod 3.375 gm/ Sodium Chloride) 100 mls @ 100 mls/hr IVPB Q6 [facility]; Protocol Last Admin: 06/25/18 09:33 Dose: 100 mls/hr Sodium Chloride (Sodium Chloride 0.9%) 1,000 mls @ 100 mls/hr IV .Q10H [facility] Stop: 06/26/18 05:59 Ketorolac Tromethamine (Toradol) 30 mg IVP Q6 PRN PRN Reason: Pain, moderate (4-7) Last Admin: 06/25/18 05:23 Dose: 30 mg Oxycodone/Acetaminophen (Percocet 5/325 Mg Tab) 1 tab PO Q4 PRN PRN Reason: Pain, severe (8-10) Stop: 06/27/18 06:38 Last Admin: 06/24/18 13:12 Dose: 1 tab Tamsulosin HCl (Flomax) 0.4 mg PO HS [facility] Last Admin: 06/24/18 21:09 Dose: 0.4 mg - Labs Labs: 06/25/18 05:40 06/25/18 05:40 PT 14.1 Seconds (9.8-13.1) H 06/24/18 03:55 INR 1.2 06/24/18 03:55 APTT 28.4 Seconds (25.6-37.1) 06/24/18 03:55 - Extremities Exam Additional comments: RLE: +ROM ankle/toes, calves soft NT neg homans +DP/PT pulses, Right leg short, noted superficial varicosities to BLE, senation intact Assessment and Plan (1) Intertrochanteric fracture of right hip Assessment & Plan: for ORIF Wednesday 06/28 pending optimization consultations appreciated f/u labs IVF as BUN increasing T&C maintain hemoglobin >10 prior to surgery, labs ordered over venodynes ordered lovenox for VTE proph, hold after thursday dose for OR thursday d/w Dr. Norris, agrees with above Status: Acute (2) Acute blood loss anemia Assessment & Plan: monitor h/h T&C prior to OR Status: Acute Radiology Interpretation - Radiology Interpretation #2 Interpretation: Patient Name / ID : AMBAR CAT / [id number] Exam Date : 06/24/2018 04:05:06 ( Approved ) Study Comment : Sex / Age : M / 88Y Creator : Gavin De Paz MD Dictator : Gavin De Paz MD Stake Driver : Check Cashier : Gavin De Paz MD Approver2 : Report Date : 06/24/2018 12:39:27 My Comment : Date of service: 06/24/2018 PROCEDURE: CT Pelvis without contrast HISTORY: Fall COMPARISON: Comparison made with plain film radiographs of the right hip 06/23/2018. TECHNIQUE: Contiguous axial images of the pelvis . No intravenous or oral contrast given. Coronal and sagittal reformats generated. Radiation dose: Total exam DLP = 665.32 mGy-cm. This CT exam was performed using one or more of the following dose reduction techniques: Automated exposure control, adjustment of the mA and/or kV according to patient size, and/or use of iterative reconstruction technique. FINDINGS: BLADDER: There is left-sided hydronephrosis and hydroureter the etiology which is unclear from this study as there are no distal ureteral calculi identified.. Urologic consultation is recommended. The urinary bladder is markedly distended with what appear to represent small diverticula along the superolateral border of the urinary bladder.; Rule out bladder outlet obstruction REPRODUCTIVE ORGANS: Prostate gland measures approximately 3.5 cm in transverse dimension. VISUALIZED BOWEL: Unremarkable. Findings suggest mild constipation. Multiple colonic diverticula the bulk of which arise from the distal descending and sigmoid colon. No definitive radiographic evidence of acute diverticulitis. PERITONEUM: Unremarkable, as visualized. No free fluid. No free air. There is a small fat containing umbilical hernia. LYMPH NODES: Unremarkable. No enlarged lymph nodes. BONES: Mildly displaced intertrochanteric fracture right femur. The right femoral head is appropriately located within the right acetabulum. Mild diffuse demineralization. Mild sclerotic incomplete fusion changes of both SI joints Multilevel degenerative spondylosis of the lumbosacral spine. Note is made of a expansile changes of the lower sacral/coccygeal central canal; rule out sacral arachnoid cyst or perineural-Tarlov cyst VASCULATURE: No aortic atherosclerotic calcification or mural plaque present. OTHER FINDINGS: None. IMPRESSION: Mildly displaced on intertrochanteric fracture right femur. Expansile changes of the lower sacral/coccygeal central canal; rule out sacral arachnoid cyst or perineural-Tarlov cyst..
--- NOTE | 2018-06-25 10:18 | RAD ---
Date of service: 06/24/2018 PROCEDURE: Right Knee Radiographs. HISTORY: s/p fall, rule out fracture COMPARISON: None. FINDINGS: BONES: Normal. No fracture. JOINTS: Medial and patellofemoral osteoarthritis. No articular erosions. JOINT EFFUSION: None. OTHER FINDINGS: None. IMPRESSION: Medial and patellofemoral osteoarthritis. No acute fracture.
--- NOTE | 2018-06-25 12:19 | CP.PCM.PN ---
Subjective - Date & Time of Evaluation Date of Evaluation: 06/25/18 Time of Evaluation: 12:17 - Subjective Subjective: Neuro Follow-Up Note: Mr. Palm was evaluated this afternoon with family at bedside. He denies any complaints at this time and states that he is feeling better than yesterday. He admits to pain to his right hip (pain now is about a 2-3 out of 10) on and off that is relieved with his pain medications. Family expresses concerns about pt's recent complaints at home of feeling depressed. Family also states that he has BPH and normally gets up 2-3 times in the middle of the night to void; son was not aware that pt had urinated on himself when he fell at home. Pt is forgetful. Pt denies h/a, dizziness, visual changes, chest pain, palpitations, sob, cough, abd pain, n/v/d. Objective - Vital Signs/Intake and Output Vital Signs (last 24 hours): Temp Pulse Resp BP Pulse Ox 98.4 F 72 18 125/88 98 06/25/18 05:54 06/25/18 08:37 06/25/18 08:36 06/25/18 08:37 06/25/18 08:36 Intake and Output: 06/25/18 06/25/18 06:59 18:59 Intake Total 1070 Output Total 300 Balance 770 - Medications Medications: Current Medications Acetaminophen (Tylenol 325mg Tab) 650 mg PO Q6 PRN PRN Reason: Pain, Mild (1-3) Amlodipine Besylate (Norvasc) 5 mg PO DAILY [facility] Last Admin: 06/25/18 08:37 Dose: 5 mg Clonazepam (Klonopin) 0.5 mg PO Q12H PRN PRN Reason: Anxiety Diltiazem HCl (Cardizem) 30 mg PO QID [facility] Last Admin: 06/25/18 08:36 Dose: 30 mg Enoxaparin Sodium (Lovenox) 40 mg SC DAILY [facility]; Protocol Famotidine (Pepcid) 20 mg PO BID [facility] Last Admin: 06/25/18 08:37 Dose: 20 mg Finasteride (Proscar) 5 mg PO DAILY [facility] Last Admin: 06/25/18 08:37 Dose: 5 mg Piperacillin Sod/Tazobactam (Sod 3.375 gm/ Sodium Chloride) 100 mls @ 100 mls/hr IVPB Q6 [facility]; Protocol Last Admin: 06/25/18 09:33 Dose: 100 mls/hr Sodium Chloride (Sodium Chloride 0.9%) 1,000 mls @ 100 mls/hr IV .Q10H [facility] Stop: 06/26/18 05:59 Ketorolac Tromethamine (Toradol) 30 mg IVP Q6 PRN PRN Reason: Pain, moderate (4-7) Last Admin: 06/25/18 05:23 Dose: 30 mg Oxycodone/Acetaminophen (Percocet 5/325 Mg Tab) 1 tab PO Q4 PRN PRN Reason: Pain, severe (8-10) Stop: 06/27/18 06:38 Last Admin: 06/24/18 13:12 Dose: 1 tab Tamsulosin HCl (Flomax) 0.4 mg PO HS [facility] Last Admin: 06/24/18 21:09 Dose: 0.4 mg - Labs Labs: 06/25/18 05:40 06/25/18 05:40 PT 14.1 Seconds (9.8-13.1) H 06/24/18 03:55 INR 1.2 06/24/18 03:55 APTT 28.4 Seconds (25.6-37.1) 06/24/18 03:55 - Constitutional Appears: Well, Non-toxic, No Acute Distress, Other (periods of forgetfullness) - Head Exam Head Exam: ATRAUMATIC, NORMAL INSPECTION, NORMOCEPHALIC - Eye Exam Eye Exam: EOMI, Normal appearance, PERRL Pupil Exam: NORMAL ACCOMODATION, PERRL - ENT Exam ENT Exam: Mucous Membranes Moist - Neck Exam Neck Exam: Full ROM, Normal Inspection - Respiratory Exam Respiratory Exam: NORMAL BREATHING PATTERN - Extremities Exam Extremities Exam: absent: Calf Tenderness, Full ROM, Pedal Edema Additional comments: unable to move LLE 2/2 hip fracture; can move left foot and toes. - Neurological Exam Neurological Exam: Alert, Awake, CN II-XII Intact. absent: Normal Gait, Oriented x3 Neuro motor strength exam: Left Upper Extremity: 5 ([place] line attendant 5/5), Right Upper Extremity: 5 ([place] line attendant 5/5), Left Lower Extremity: 0 (unable to move 2/2 fracture), Right Lower Extremity: 3 (plantar flexion 4/5) Additional comments: AA, disoriented to year. Speech clear and fluid Strength to BUE equal and strong Unable to move LLE 2/2 hip fracture; pt can move left foot and can wiggle toes. Sensation is intact b/l No tremors noted; toes downgoing b/l Gait not assessed 2/2 hip fracture. - Psychiatric Exam Psychiatric exam: Normal Affect, Normal Mood Additional comments: periods of forgetfulness - Skin Skin Exam: Normal Color Additional comments: skin abrasions to left forearm with dressing Assessment and Plan (1) Syncope Assessment & Plan: Imaging reviewed: -CT Head (06/24/18): No acute intracranial abnormality.Mild chronic microangiopathic changes and mild age-related global parenchymal volume loss. -ECHO (06/24/18): EF 50-55% -CT C-Spine: No acute fractures. Multilevel degenerative spondylosis as detailed above. -Carotid U/S (06/24/18): Normal Duplex Doppler of the cervical carotid and vertebral arteries. -EEG ordered; pending--will f/u with results. -Unable to have MRI done as pt has a PPM. -Cardiology is on the case--cardiac w/u in progress. -Neurosurgery on the case for a nondisplaced fracture of L-5 left spinous process--no intervention per neurosurgery. -Pt will receive Lovenox as ordered by ortho until 06/27/18. He is tentatively scheduled for the OR on Thursday for right hip ORIF. -Recommend AC for stroke prevention as pt has a-fib---to be addressed post-op and if cardiology agrees. -Family is requesting a psych consult while pt is in the hospital for depression and evaluation of dementia--will defer to primary team. -Notify neuro team of any acute changes in pt's condition. Claudia Escobar, MARNIE, THIRD LOADER Case discussed with Dr. Castanon Status: Acute
[2018-06-25] MEDS: Enoxaparin 40 mg Syringe SC SCH (13:01)
[2018-06-25] MEDS: Sodium Chloride 0.9% 1,000 ML IV SCH ×2 (13:02→22:24)
--- NOTE | 2018-06-25 16:29 | CT ---
Date of service: 06/25/2018 PROCEDURE: CT right hip HISTORY: S/P fall COMPARISON: Not available TECHNIQUE: 2.5 mm contiguous axial sections were acquired through the right hip. Sagittal and coronal images were reformatted from the axial scan. FINDINGS: There is a comminuted intertrochanteric fracture of the right hip with impaction. There is minimal displacement of the fracture fragments. The femoral head and neck appear intact. There is no dislocation. There is no calvin hematoma. There is small amount of soft tissue density adjacent to the greater trochanter most likely blood. There is contusion/ecchymosis of the right trochanteric subcutaneous soft tissues. IMPRESSION: Comminuted impacted minimally displaced right intertrochanteric hip fracture.
[2018-06-25 17:56] LABS: SQUAMOUS EPITHIAL < 1 /hpf (0-5); URINE BACTERIA RARE (<OCC); URINE BILIRUBIN NEGATIVE (NEGATIVE); URINE BLOOD LARGE (NEGATIVE); URINE CLARITY CLOUDY (Clear); URINE COLOR YELLOW (YELLOW); URINE GLUCOSE (UA) NEG (NEGATIVE); URINE LEUKOCYTE ESTERASE TRACE Leu/uL (Negative); URINE PROTEIN 30 mg/dL (NEGATIVE); URINE UROBILINOGEN 0.2-1.0 mg/dL (0.2-1.0)
[2018-06-25] MEDS: Metoprolol Succinate 25 mg XL Tab PO SCH (18:07)
--- NOTE | 2018-06-25 22:06 | PN ---
DATE: 06/25/2018 FOLLOWUP SUBJECTIVE: The patient denies any chest pain, headache, dizziness or shortness of breath. PHYSICAL EXAMINATION: VITAL SIGNS: Blood pressure 144/81, heart rate 108, temperature 98.1, respirations 18. HEENT: Pale conjunctivae. CHEST: Clear. HEART: S1 and S2, regular. LABORATORY DATA: Today's hemoglobin and hematocrit 10.6 and 31.9, white count 11, platelet count 198,000. Today's SMA-7 is within normal limits except chloride of 94 and BUN of 35. Echocardiography study report revealed normal ejection fraction, mild concentric LVH, mild aortic insufficiency. Grade I abnormal relaxation pattern. Pelvic CT scan revealed comminuted impacted minimal displaced right intertrochanteric hip fracture. ASSESSMENT: 1. Right intertrochanteric hip fracture following a fall. 2. Mild mitral insufficiency. 3. Thoracic aortic aneurysm. 4. Diabetes mellitus. RECOMMENDATIONS: Continue Cardizem 30 mg four times a day, Lovenox 20 mg subcutaneous twice a day, Norvasc 5 mg once a day, Zosyn 3.375 g intravenously every 6 hours, Toprol-XL 25 mg once a day. The patient can undergo open reduction and internal fixation under general anesthesia; however, there was moderate cardiac risk close preoperative blood pressure and trace monitoring with postoperative telemetry/IgA monitoring with resumption of beta blockers postoperatively. Janes Velasquez MD
[2018-06-26] MEDS: Piperacillin/Tazobact 3.375 GM in Sodium Chloride 0.9% 100 ML IVPB SCH ×2 (03:14→12:26)
[2018-06-26 05:15] LABS: HEMOGLOBIN 10.1 g/dL (12.0-18.0); MEAN CORPUSCULAR HEMOGLOBIN 30.3 pg (27.0-31.0); MEAN CORPUSCULAR HGB CONC 34.1 g/dL (33.0-37.0); RBC 3.33 Mil/uL (4.40-5.90); RED CELL DISTRIBUTION WIDTH 13.3 % (11.5-14.5); WHITE BLOOD COUNT 10.4 K/uL (4.8-10.8)
[2018-06-26 05:16] LABS: INR 1.3; PROTHROMBIN TIME 15.2 Seconds (9.8-13.1)
[2018-06-26 06:01] LABS: BLOOD UREA NITROGEN 25 mg/dl (9-20); CALCIUM 7.7 mg/dL (8.4-10.2); FERRITIN 98.9 ng/Ml (17.9-464); GFR NON-AFRICAN AMERICAN > 60
[2018-06-26 08:18] LABS: IRON 17 ug/dL (49-181)
[2018-06-26 08:27] LABS: % IRON SATURATION 8 % (20-55); TOTAL IRON BINDING CAPACITY 224 ug/dL (250-450)
[2018-06-26] MEDS: Enoxaparin 40 mg Syringe SC SCH (08:52)
[2018-06-26] MEDS: Metoprolol Succinate 25 mg XL Tab PO SCH (08:55)
--- NOTE | 2018-06-26 10:24 | CP.PCM.PN ---
<Cameron Villafana - Last Filed: 06/26/18 10:29> Subjective - Date & Time of Evaluation Date of Evaluation: 06/26/18 Time of Evaluation: 07:15 - Subjective Subjective: Pt seen and examined at bedside. Cobb removed yesterday evening. Overnight: experienced retention. AM bladder scan 500. Reports R proximal leg pain. Tolerating PO diet. Experiencing BM. Objective - Vital Signs/Intake and Output Vital Signs (last 24 hours): Temp Pulse Resp BP Pulse Ox 97.9 F 90 18 124/73 97 06/26/18 07:53 06/26/18 08:55 06/26/18 08:52 06/26/18 08:55 06/26/18 08:52 Intake and Output: 06/26/18 06/26/18 06:59 18:59 Intake Total 1720 Output Total 350 Balance 1370 - Medications Medications: Current Medications Acetaminophen (Tylenol 325mg Tab) 650 mg PO Q6 PRN PRN Reason: Pain, Mild (1-3) Amlodipine Besylate (Norvasc) 5 mg PO DAILY [facility] Last Admin: 06/26/18 08:53 Dose: 5 mg Clonazepam (Klonopin) 0.5 mg PO Q12H PRN PRN Reason: Anxiety Diltiazem HCl (Cardizem) 30 mg PO QID [facility] Last Admin: 06/26/18 08:52 Dose: 30 mg Enoxaparin Sodium (Lovenox) 40 mg SC DAILY [facility]; Protocol Last Admin: 06/26/18 08:52 Dose: 40 mg Famotidine (Pepcid) 20 mg PO BID [facility] Last Admin: 06/26/18 08:53 Dose: 20 mg Finasteride (Proscar) 5 mg PO DAILY [facility] Last Admin: 06/26/18 08:53 Dose: 5 mg Piperacillin Sod/Tazobactam (Sod 3.375 gm/ Sodium Chloride) 100 mls @ 100 mls/h r IVPB Q6 [facility]; Protocol Last Admin: 06/26/18 03:14 Dose: 100 mls/hr Ketorolac Tromethamine (Toradol) 30 mg IVP Q6 PRN PRN Reason: Pain, moderate (4-7) Last Admin: 06/25/18 05:23 Dose: 30 mg Metoprolol Succinate (Toprol Xl) 25 mg PO DAILY [facility] Last Admin: 06/26/18 08:55 Dose: 25 mg Oxycodone/Acetaminophen (Percocet 5/325 Mg Tab) 1 tab PO Q4 PRN PRN Reason: Pain, severe (8-10) Stop: 06/27/18 06:38 Last Admin: 06/24/18 13:12 Dose: 1 tab Tamsulosin HCl (Flomax) 0.4 mg PO HS [facility] Last Admin: 06/25/18 22:23 Dose: 0.4 mg - Labs Labs: 06/26/18 04:15 06/26/18 04:15 PT 15.2 Seconds (9.8-13.1) H 06/26/18 04:15 INR 1.3 06/26/18 04:15 APTT 28.4 Seconds (25.6-37.1) 06/24/18 03:55 - Constitutional Appears: Well - Eye Exam Eye Exam: EOMI - ENT Exam ENT Exam: Mucous Membranes Moist - Respiratory Exam Respiratory Exam: Clear to Ausculation Bilateral, NORMAL BREATHING PATTERN - Cardiovascular Exam Cardiovascular Exam: +S1, +S2 - GI/Abdominal Exam GI & Abdominal Exam: Soft, Normal Bowel Sounds. absent: Tenderness - Extremities Exam Extremities Exam: Tenderness (R proximal lower extremity). absent: Calf Tenderness Additional comments: R lower extremity: short and externally rotated compared to L - Neurological Exam Neurological Exam: Alert, Awake. absent: Normal Gait - Psychiatric Exam Psychiatric exam: Normal Affect, Normal Mood Assessment and Plan - Assessment and Plan (Free Text) Assessment: Pt is an 88 y/o male with hx of HTN, HLD, Anxiety, and Depression brought to ED by EMS after a syncopal. Plan: -EKG Afibb w/ RVR -Head CT: no acute findings -Pelvis CT: Acute displaced R. Trochanteric Fx; Urinary Retention -Cervical Spine CT: Benign compression C4-C6, Chronic Fx of T1, Osteopenia, No acute bone pathology -CXR: No active pulmonary disease. Severe cardiomegaly and mild pulmonary venous congestion -CT Dissection: No PE or aortic dissection, aneurysmal ascending aorta (5.4cm), Mild CHF -ECHO: EF 50-55%, mild concentric LVH, mild AR, -EEG: pending final read -UA: 3/; f/u 3/2 -UCX: negative -BCX: NG x48hr x2 -Procalcitonin: <0.05 Syncopy -Likely secondary to Afib/Vaso-vagal -Syncopy workup: Orthostatic, Carotid US BL, Echo -Less likely seizure, unclear hx from EMS, pt was not post-ictal, urinary incontinence was likely overflow incontinence, no hx of seizures in past. Lactic acid negative -Cardiology: Dr. Velasquez; continue rx; can undergo open reduction and internal fixation under gen anesthesia; however, there is moderate cardiac risk; [id number] BP monitor -Neurology: Dr. Castanon: EEG pending -Seizure and fall precautions New onset Afib -Afibb w/ RVR on presentation -Rate and rhythm controlled after Cardizem 10mg IV and 30 po once in ED -Will continue with Cardizem 30 QID po; Monitor BP closely -Cardiac monitoring -Cardiology consult: Dr. Mac: Acute displaced R. Trochanteric Fx -Ortho: Dr. Norris ORIF vs Total hip replacement 06/28/2018 after cardio/neuro/medical optimization -IVF for elevated BUN -maintain HB >10 for surgery -Pain management: Toradol; Hold prior to surgery Leukocytes w/ neutrophilic predominance -Unclear if pt has underlying infectious process -d/c Zosyn -Started rocephin 1 g daily -U/A,Ucx, Bcx, Procalcitonin Cholelithiasis: -No abdo pain -Surgery consulted: no surgery indicated; f/u outpatient Azotemia -Mild dehydration -hx: HypoNatremia and hypochloremia; likely contraction metabolic alkalosis -NS at 100 mls/hr Non-displaced Fx L5 spinous process -Neurosurgery: No surgery at this time -No Red Flag signs on exam Urinary Retention Incontinence -Pt likely has overflow incontinence from BPH causing bladder outflow obstruction -He reports hx of "Prostate problems" -Proscar, Flomax, -Cobb discontinued 06/25; retention; replaced 06/26 -F/U UA and Ucx HTN -C/W Norvasc -Monitor BP Aneurysm ascending aorta (5.4cm) -No sign of rupture or bleed, hemodynamically stable, no urgent management needed -Given significant size, may need endovascular repair in future Anxiety -Klonipin prn Depression: Psych consult DVT ppx -SCD and lovenox (Last dose thursday for OR thursday) -High fall risk, recent head trauma, would avoid anticoagulants unless otherwise advised by Cardio for afibb Diet Cardiac DNR/DNI: Surrogate decision maker: matias Horner Case and plan d/w Dr. Tuan Villafana MD PGY2 <Cassandra Dickerson - Last Filed: 06/26/18 16:47> Objective - Vital Signs/Intake and Output Vital Signs (last 24 hours): Temp Pulse Resp BP Pulse Ox 98.5 F 100 H 19 159/79 H 97 06/26/18 16:38 06/26/18 16:38 06/26/18 16:38 06/26/18 16:38 06/26/18 16:38 Intake and Output: 06/26/18 06/26/18 06:59 18:59 Intake Total 1720 Output Total 350 Balance 1370 - Medications Medications: Current Medications Acetaminophen (Tylenol 325mg Tab) 650 mg PO Q6 PRN PRN Reason: Pain, Mild (1-3) Amlodipine Besylate (Norvasc) 5 mg PO DAILY [facility] Last Admin: 06/26/18 08:53 Dose: 5 mg Clonazepam (Klonopin) 0.25 mg PO Q12H [facility] Diltiazem HCl (Cardizem) 30 mg PO QID [facility] Last Admin: 06/26/18 12:41 Dose: 30 mg Enoxaparin Sodium (Lovenox) 40 mg SC DAILY [facility]; Protocol Last Admin: 06/26/18 08:52 Dose: 40 mg Escitalopram Oxalate (Lexapro) 5 mg PO HS [facility] Famotidine (Pepcid) 20 mg PO BID [facility] Last Admin: 06/26/18 08:53 Dose: 20 mg Finasteride (Proscar) 5 mg PO DAILY [facility] Last Admin: 06/26/18 08:53 Dose: 5 mg Ceftriaxone Sodium 1 gm/ (Sodium Chloride) 100 mls @ 100 mls/hr IVPB DAILY [facility]; Protocol Metoprolol Succinate (Toprol Xl) 25 mg PO DAILY [facility] Last Admin: 06/26/18 08:55 Dose: 25 mg Oxycodone/Acetaminophen (Percocet 5/325 Mg Tab) 1 tab PO Q4 PRN PRN Reason: Pain, severe (8-10) Stop: 06/27/18 06:38 Last Admin: 06/24/18 13:12 Dose: 1 tab Tamsulosin HCl (Flomax) 0.4 mg PO HS [facility] Last Admin: 06/25/18 22:23 Dose: 0.4 mg - Labs Labs: 06/26/18 04:15 06/26/18 04:15 PT 15.2 Seconds (9.8-13.1) H 06/26/18 04:15 INR 1.3 06/26/18 04:15 APTT 28.4 Seconds (25.6-37.1) 06/24/18 03:55 Attending/Attestation - Attestation I have personally seen and examined this patient.: Yes I have fully participated in the care of the patient.: Yes I have reviewed all pertinent clinical information, including history, physical exam and plan: Yes Notes (Text): Intertrochanteric Hip Fracture Fall unclear if Syncope New Onset A Fib ascending Thoracic Aorta 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 Acute Cholecystitis ruled out Anemia prob chronic, and dilutional due to IVF hydration Hydronephrosis, left Urinary Retention L5 Spinous Process Fracture Prostatic Enlargement Depression Dementia prob Alzheimers - Ortho consulted- plan for surgery on Thursday -Cardio consulted for pre op eval -cont Cardizem PO , increase Toprol to 50 mg daily - DVT proph- Lovenox - reinsert Cobb due to retention - cont Flomax, Proscar -Psych consulted- rec staring Lexapro and decrease Klonopin to 0.25 mg bid - no surgery accdg to NeuroSx re: spinous process fracture - will give a dose of Venofer - Transfuse PRBC if hgb drops below 10 -BP control
--- NOTE | 2018-06-26 10:34 | CP.PCM.PN ---
Subjective - Date & Time of Evaluation Date of Evaluation: 06/26/18 Time of Evaluation: 09:30 - Subjective Subjective: S- pt with hip discomfort at bedrest Objective - Vital Signs/Intake and Output Vital Signs (last 24 hours): Temp Pulse Resp BP Pulse Ox 97.9 F 90 18 124/73 97 06/26/18 07:53 06/26/18 08:55 06/26/18 08:52 06/26/18 08:55 06/26/18 08:52 Intake and Output: 06/26/18 06/26/18 06:59 18:59 Intake Total 1720 Output Total 350 Balance 1370 - Medications Medications: Current Medications Acetaminophen (Tylenol 325mg Tab) 650 mg PO Q6 PRN PRN Reason: Pain, Mild (1-3) Amlodipine Besylate (Norvasc) 5 mg PO DAILY [facility] Last Admin: 06/26/18 08:53 Dose: 5 mg Clonazepam (Klonopin) 0.5 mg PO Q12H PRN PRN Reason: Anxiety Diltiazem HCl (Cardizem) 30 mg PO QID [facility] Last Admin: 06/26/18 08:52 Dose: 30 mg Enoxaparin Sodium (Lovenox) 40 mg SC DAILY [facility]; Protocol Last Admin: 06/26/18 08:52 Dose: 40 mg Famotidine (Pepcid) 20 mg PO BID [facility] Last Admin: 06/26/18 08:53 Dose: 20 mg Finasteride (Proscar) 5 mg PO DAILY [facility] Last Admin: 06/26/18 08:53 Dose: 5 mg Piperacillin Sod/Tazobactam (Sod 3.375 gm/ Sodium Chloride) 100 mls @ 100 mls/hr IVPB Q6 [facility]; Protocol Last Admin: 06/26/18 03:14 Dose: 100 mls/hr Ketorolac Tromethamine (Toradol) 30 mg IVP Q6 PRN PRN Reason: Pain, moderate (4-7) Last Admin: 06/25/18 05:23 Dose: 30 mg Metoprolol Succinate (Toprol Xl) 25 mg PO DAILY [facility] Last Admin: 06/26/18 08:55 Dose: 25 mg Oxycodone/Acetaminophen (Percocet 5/325 Mg Tab) 1 tab PO Q4 PRN PRN Reason: Pain, severe (8-10) Stop: 06/27/18 06:38 Last Admin: 06/24/18 13:12 Dose: 1 tab Tamsulosin HCl (Flomax) 0.4 mg PO HS [facility] Last Admin: 06/25/18 22:23 Dose: 0.4 mg - Labs Labs: 06/26/18 04:15 06/26/18 04:15 PT 15.2 Seconds (9.8-13.1) H 06/26/18 04:15 INR 1.3 06/26/18 04:15 APTT 28.4 Seconds (25.6-37.1) 06/24/18 03:55 - Additional Findings Additional findings: Systemic exam as per medical/cardiologic consultants Musculoskeletal stance/gait- defrred pt with shortening external rotation hip CT scan reviewed- concept of hip replace,ment vs ORIF discussed no pro,mises/guarantees Assessment and Plan - Assessment and Plan (Free Text) Assessment: A - intertrochanyteric fracture femur P- to OR Thursday for ORIF vs Total Hip Relacement
--- NOTE | 2018-06-26 14:52 | CP.PCM.CON ---
History of Present Illness - History of Present Illness History of Present Illness: CONSULT REQUESTED FOR HX OF DEPRESSION Patient is an 88 y/o male who presents with R hip pain following an unwitnessed fall at home reportedly prior to admission pt has been placed on klonopin for increased anxiety on evaluation through translation pt reported feeling increasingly depressed and anxious due to his current physical condition with limited mobility and increased pain, pt also reported feeling down for having to stay in the hospita pt denied any current changes in sleep or appetite, speech normal thought process goal directed , denied any current perceptual disturbances non elicited , denied suicidal or homicidal ideation. alert awake oriented to person and place partially to time Past Patient History - Past Medical History & Family History Past Family History: Reviewed and not pertinent - Past Social History Smoking Status: Never Smoked - CARDIAC Hx Cardiac Disorders: Yes - PULMONARY Hx Respiratory Disorders: No - NEUROLOGICAL Hx Neurological Disorder: No - HEENT Hx HEENT Problems: No - RENAL Hx Chronic Kidney Disease: No - ENDOCRINE/METABOLIC Hx Endocrine Disorders: No - HEMATOLOGICAL/ONCOLOGICAL Hx Blood Disorders: No - INTEGUMENTARY Hx Dermatological Problems: No - MUSCULOSKELETAL/RHEUMATOLOGICAL Hx Arthritis: Yes (knees) - GASTROINTESTINAL Hx Gastrointestinal Disorders: No - GENITOURINARY/GYNECOLOGICAL Hx Genitourinary Disorders: Yes Hx Prostate Problems: Yes - PSYCHIATRIC Hx Anxiety: Yes Hx Depression: Yes - SURGICAL HISTORY Hx Surgeries: No - ANESTHESIA Hx Anesthesia: No Meds Allergies/Adverse Reactions: Allergies Allergy/AdvReac Type Severity Reaction Status Date / Time No Known Allergies Allergy Verified 06/22/18 23:43 - Medications Medications: Current Medications Acetaminophen (Tylenol 325mg Tab) 650 mg PO Q6 PRN PRN Reason: Pain, Mild (1-3) Amlodipine Besylate (Norvasc) 5 mg PO DAILY [facility] Last Admin: 06/26/18 08:53 Dose: 5 mg Clonazepam (Klonopin) 0.5 mg PO Q12H PRN PRN Reason: Anxiety Diltiazem HCl (Cardizem) 30 mg PO QID [facility] Last Admin: 06/26/18 12:41 Dose: 30 mg Enoxaparin Sodium (Lovenox) 40 mg SC DAILY [facility]; Protocol Last Admin: 06/26/18 08:52 Dose: 40 mg Famotidine (Pepcid) 20 mg PO BID [facility] Last Admin: 06/26/18 08:53 Dose: 20 mg Finasteride (Proscar) 5 mg PO DAILY [facility] Last Admin: 06/26/18 08:53 Dose: 5 mg Ceftriaxone Sodium 1 gm/ (Sodium Chloride) 100 mls @ 100 mls/hr IVPB DAILY [facility]; Protocol Ketorolac Tromethamine (Toradol) 30 mg IVP Q6 PRN PRN Reason: Pain, moderate (4-7) Last Admin: 06/25/18 05:23 Dose: 30 mg Metoprolol Succinate (Toprol Xl) 25 mg PO DAILY [facility] Last Admin: 06/26/18 08:55 Dose: 25 mg Oxycodone/Acetaminophen (Percocet 5/325 Mg Tab) 1 tab PO Q4 PRN PRN Reason: Pain, severe (8-10) Stop: 06/27/18 06:38 Last Admin: 06/24/18 13:12 Dose: 1 tab Tamsulosin HCl (Flomax) 0.[address] [facility] Last Admin: 06/25/18 22:23 Dose: 0.4 mg Results - Vital Signs Recent Vital Signs: Last Vital Signs Temp 98.1 F 06/26/18 11:59 Pulse 99 H 06/26/18 12:41 Resp 18 06/26/18 12:41 BP 137/84 06/26/18 12:41 Pulse Ox 97 06/26/18 12:41 - Labs Result Diagrams: 06/26/18 04:15 06/26/18 04:15 Labs: Laboratory Results - last 24 hr 06/25/18 06/26/18 06/26/18 17:39 04:15 04:15 WBC 10.4 RBC 3.33 L Hgb 10.1 L Hct 29.6 L MCV 89.0 MCH 30.3 MCHC 34.1 RDW 13.3 Plt Count 194 PT INR Sodium 132 Potassium 3.7 Chloride 97 L Carbon Dioxide 25 Anion Gap 14 BUN 25 H Creatinine 0.9 Est GFR ( Amer) > 60 Est GFR (Non-Af Amer) > 60 Random Glucose 112 H Calcium 7.7 L Iron TIBC % Saturation Ferritin 98.9 Vitamin B12 411 Urine Color Yellow Urine Clarity Cloudy Urine pH 5.0 Ur Specific [place] 1.031 H Urine Protein 30 Urine Glucose (UA) Neg Urine Ketones Negative Urine Blood Large Urine Nitrate Negative Urine Bilirubin Negative Urine Urobilinogen 0.2-1.0 Ur Leukocyte Esterase Trace Urine RBC (Auto) 196 H Urine Microscopic WBC 11 H Ur Squamous Epith Cells < 1 Urine Bacteria Rare 06/26/18 06/26/18 04:15 07:30 WBC RBC Hgb Hct MCV MCH MCHC RDW Plt Count PT 15.2 H INR 1.3 Sodium Potassium Chloride Carbon Dioxide Anion Gap BUN Creatinine Est GFR ( Amer) Est GFR (Non-Af Amer) Random Glucose Calcium Iron 17 L TIBC 224 L % Saturation 8 L Ferritin Vitamin B12 Urine Color Urine Clarity Urine pH Ur Specific [place] Urine Protein Urine Glucose (UA) Urine Ketones Urine Blood Urine Nitrate Urine Bilirubin Urine Urobilinogen Ur Leukocyte Esterase Urine RBC (Auto) Urine Microscopic WBC Ur Squamous Epith Cells Urine Bacteria Assessment & Plan - Assessment and Plan (Free Text) Assessment: 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
[2018-06-26] MEDS ORDERED: Metoprolol Succinate 25 mg XL Tab PO STA (16:45)
--- NOTE | 2018-06-26 18:14 | PN ---
DATE: 06/26/2018 SUBJECTIVE: The patient required an indwelling Cobb earlier this morning, however, subsequently the patient is noted to have hematuria. He denies any chest pain. PHYSICAL EXAMINATION: VITAL SIGNS: Blood pressure 137/84, heart rate 99, temperature 98.1, respirations 18. HEENT: Normocephalic. CHEST: Diminished breath sounds at bases. HEART: S1 and S2, regular. EXTREMITIES: Trace leg edema. LABORATORY DATA: Today's hemoglobin and hematocrit 10.1 and 29.6 which is drop of above 2.6 g compared to admitting hemoglobin. Today's SMA-7: Sodium 132, potassium 3.7, chloride 97, CO2 of 25, glucose 112, BUN 25, creatinine 0.9. ASSESSMENT: 1. Recurrent falls with right intertrochanteric hip fracture. 2. Thoracic aortic aneurysm. 3. Mild aortic insufficiency. 4. Diabetes mellitus. 5. Urinary retention requiring an indwelling Cobb catheter and currently experiencing hematuria. RECOMMENDATIONS: Continue Cardizem 30 mg every day, Rocephin 1 g intravenously daily, Lovenox is currently on hold because of hematuria, and continue on Norvasc 10 mg once a day, Toprol-XL at 25 mg daily. Janes Velasquez MD
[2018-06-27 06:48] LABS: HEMOGLOBIN 9.8 g/dL (12.0-18.0); MEAN CELL VOLUME 88.9 fl (80.0-94.0); MEAN CORPUSCULAR HEMOGLOBIN 29.8 pg (27.0-31.0); MEAN CORPUSCULAR HGB CONC 33.6 g/dL (33.0-37.0); RBC 3.29 Mil/uL (4.40-5.90); RED CELL DISTRIBUTION WIDTH 13.1 % (11.5-14.5); WHITE BLOOD COUNT 10.3 K/uL (4.8-10.8)
[2018-06-27 07:11] LABS: INR 1.3; PROTHROMBIN TIME 14.9 Seconds (9.8-13.1)
[2018-06-27 07:13] LABS: PARTIAL THROMBOPLASTIN TIME 26.4 Seconds (25.6-37.1)
[2018-06-27 07:28] LABS: BLOOD UREA NITROGEN 18 mg/dl (9-20); GFR NON-AFRICAN AMERICAN > 60
[2018-06-27] MEDS: Metoprolol Succinate 50 mg XL Tab PO SCH (09:00)
[2018-06-27] MEDS: Enoxaparin 40 mg Syringe SC SCH (10:00)
--- NOTE | 2018-06-27 10:35 | CP.PCM.PN ---
<Geo Hinds - Last Filed: 06/27/18 12:15> Subjective - Date & Time of Evaluation Date of Evaluation: 06/27/18 Time of Evaluation: 10:35 - Subjective Subjective: pt seen and evaluated at bedside this morning. Overnight pt was attempting to pull out pfeiffer, so it was discontinued. Has been having straight caths for retention and was put on 1:1 observation. No other complaints or concerns. Afebrile. Hemodynamically stable. Objective - Vital Signs/Intake and Output Vital Signs (last 24 hours): Temp Pulse Resp BP Pulse Ox 98.3 F 83 18 128/75 95 06/27/18 10:31 06/27/18 10:31 06/27/18 10:31 06/27/18 10:31 06/27/18 08:58 Intake and Output: 06/27/18 06/27/18 06:59 18:59 Intake Total 0 Output Total 800 Balance -800 0 - Medications Medications: Current Medications Acetaminophen (Tylenol 325mg Tab) 650 mg PO Q6 PRN PRN Reason: Pain, Mild (1-3) Amlodipine Besylate (Norvasc) 5 mg PO DAILY [facility] Last Admin: 06/27/18 08:59 Dose: 5 mg Clonazepam (Klonopin) 0.25 mg PO Q12H [facility] Last Admin: 06/27/18 09:05 Dose: 0.25 mg Diltiazem HCl (Cardizem) 30 mg PO QID [facility] Last Admin: 06/27/18 08:58 Dose: 30 mg Enoxaparin Sodium (Lovenox) 40 mg SC DAILY [facility]; Protocol Last Admin: 06/27/18 10:00 Dose: 40 mg Escitalopram Oxalate (Lexapro) 5 mg PO HS [facility] Last Admin: 06/26/18 21:13 Dose: 5 mg Famotidine (Pepcid) 20 mg PO BID [facility] Last Admin: 06/27/18 08:59 Dose: 20 mg Finasteride (Proscar) 5 mg PO DAILY [facility] Last Admin: 06/27/18 09:00 Dose: 5 mg Ceftriaxone Sodium 1 gm/ (Sodium Chloride) 100 mls @ 100 mls/hr IVPB DAILY [facility]; Protocol Last Admin: 06/27/18 09:02 Dose: 100 mls/hr Metoprolol Succinate (Toprol Xl) 50 mg PO DAILY [facility] Last Admin: 06/27/18 09:00 Dose: 50 mg Tamsulosin HCl (Flomax) 0.4 mg PO HS [facility] Last Admin: 06/26/18 21:13 Dose: 0.4 mg - Labs Labs: 06/27/18 04:50 06/27/18 04:50 PT 14.9 Seconds (9.8-13.1) H 06/27/18 04:50 INR 1.3 06/27/18 04:50 APTT 26.4 Seconds (25.6-37.1) 06/27/18 04:50 - Constitutional Appears: Non-toxic, No Acute Distress - Head Exam Head Exam: ATRAUMATIC, NORMOCEPHALIC - Eye Exam Eye Exam: EOMI Pupil Exam: PERRL - ENT Exam ENT Exam: Mucous Membranes Moist - Neck Exam Neck Exam: Normal Inspection - Respiratory Exam Respiratory Exam: Clear to Ausculation Bilateral, NORMAL BREATHING PATTERN. absent: Rales, Rhonchi, Wheezes, Respiratory Distress - Cardiovascular Exam Cardiovascular Exam: REGULAR RHYTHM, +S1, +S2. absent: Tachycardia, JVD, Murmur - GI/Abdominal Exam GI & Abdominal Exam: Soft, Normal Bowel Sounds. absent: Distended, Firm, Guarding, Rigid, Tenderness - Extremities Exam Extremities Exam: absent: Calf Tenderness Additional comments: right hip: ecchymosis on inner right thigh - Neurological Exam Neurological Exam: Alert, Awake, CN II-XII Intact - Psychiatric Exam Psychiatric exam: Normal Affect, Normal Mood - Skin Skin Exam: Dry, Intact, Warm Assessment and Plan - Assessment and Plan (Free Text) Assessment: Pt is an 88 y/o male with hx of HTN, HLD, Anxiety, and Depression brought to ED by EMS after a syncopal episode found to be in Afib with RVR with concomittant intertrochanteric fracture now admitted for new onset afib and intertrochanteric fracture. Plan: Syncope -Likely secondary to Afib/Vaso-vagal -Cardiology: Dr. Velasquez; continue rx; can undergo open reduction and internal fixation under gen anesthesia; however, there is moderate cardiac risk; [id number] BP monitor -Neurology: Dr. Castanon: EEG completed, f/u results -Seizure and fall precautions New onset Afib -Afibb w/ RVR on presentation -Rate and rhythm controlled after Cardizem 10mg IV and 30 po once in ED -Will continue with Cardizem 30 QID po; Monitor BP closely -Cardiac monitoring -Cardiology consult: Dr. Velasquez, follow up recommendations Acute displaced R. Trochanteric Fx -Ortho: Dr. Norris ORIF vs Total hip replacement 06/28/2018 after cardio/neuro/medical optimization -IVF for elevated BUN -maintain HB >10 for surgery -will transfuse 1 unit today, consent obtained from son -follow up H/H -hold Lovenox, SCDs till surgery -medically optimized for surgery, moderate cardiac risk, will need telemonitoring post op and resumption of beta-jacklyn Leukocytes w/ neutrophilic predominance -Unclear if pt has underlying infectious process -d/c Zosyn -Started rocephin 1 g daily -U/A,Ucx, Bcx, Procalcitonin Cholelithiasis: -Surgery consulted: no surgery indicated; f/u outpatient Azotemia -Mild dehydration -hx: HypoNatremia and hypochloremia; likely contraction metabolic alkalosis -NS at 100 mls/hr Non-displaced Fx L5 spinous process -Neurosurgery: No surgery at this time Urinary Retention Incontinence -He reports hx of "Prostate problems" -Proscar, Flomax, -resume pfeiffer HTN -C/W Norvasc -Monitor BP Aneurysm ascending aorta (5.4cm) -No sign of rupture or bleed, hemodynamically stable, no urgent management needed -Given significant size, may need endovascular repair in future Anxiety -Klonipin prn Depression: Psych consult DVT ppx -SCDs -hold lovenox -High fall risk Diet -heart healthy -NPO after midnight DNR/DNI: Surrogate decision maker: matias Horner <Cassandra Dickerson - Last Filed: 06/27/18 16:00> Objective - Vital Signs/Intake and Output Vital Signs (last 24 hours): Temp Pulse Resp BP Pulse Ox 98.9 F 75 18 116/73 98 06/27/18 15:42 06/27/18 15:42 06/27/18 15:42 06/27/18 15:42 06/27/18 15:42 Intake and Output: 06/27/18 06/27/18 06:59 18:59 Intake Total 325 Output Total 800 Balance -800 325 - Medications Medications: Current Medications Acetaminophen (Tylenol 325mg Tab) 650 mg PO Q6 PRN PRN Reason: Pain, Mild (1-3) Clonazepam (Klonopin) 0.25 mg PO Q12H [facility] Last Admin: 06/27/18 09:05 Dose: 0.25 mg Diltiazem HCl (Cardizem) 30 mg PO QID [facility] Last Admin: 06/27/18 12:34 Dose: 30 mg Enoxaparin Sodium (Lovenox) 40 mg SC DAILY [facility]; Protocol Last Admin: 06/27/18 10:00 Dose: 40 mg Escitalopram Oxalate (Lexapro) 5 mg PO HS [facility] Last Admin: 06/26/18 21:13 Dose: 5 mg Famotidine (Pepcid) 20 mg PO BID [facility] Last Admin: 06/27/18 08:59 Dose: 20 mg Finasteride (Proscar) 5 mg PO DAILY [facility] Last Admin: 06/27/18 09:00 Dose: 5 mg Ceftriaxone Sodium 1 gm/ (Sodium Chloride) 100 mls @ 100 mls/hr IVPB DAILY [facility]; Protocol Last Admin: 06/27/18 09:02 Dose: 100 mls/hr Metoprolol Succinate (Toprol Xl) 50 mg PO DAILY [facility] Last Admin: 06/27/18 09:00 Dose: 50 mg Tamsulosin HCl (Flomax) 0.4 mg PO [facility] Last Admin: 06/26/18 21:13 Dose: 0.4 mg - Labs Labs: 06/27/18 11:39 06/27/18 04:50 PT 15.3 Seconds (9.8-13.1) H 06/27/18 11:38 INR 1.3 06/27/18 11:38 APTT 27.1 Seconds (25.6-37.1) 06/27/18 11:38 Attending/Attestation - Attestation I have personally seen and examined this patient.: Yes I have fully participated in the care of the patient.: Yes I have reviewed all pertinent clinical information, including history, physical exam and plan: Yes Notes (Text): Intertrochanteric Hip Fracture Fall unclear if Syncope New Onset A Fib ascending Thoracic Aorta 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 Acute Cholecystitis ruled out Anemia prob chronic, and dilutional due to IVF hydration Hydronephrosis, left Urinary Retention L5 Spinous Process Fracture Prostatic Enlargement Depression Dementia prob Alzheimers - Ortho consulted- plan for surgery tomorrow -Cardio consulted for pre op eval- moderate cardiac risk as per Dr Velasquez -cont Cardizem PO , increase Toprol to 50 mg daily - DVT proph- Lovenox d/c in prep for surgery in am - Pfeiffer inserted due to retention however pt kept pulling on it and developed hematuria so was d/c , robert monitor for recurrence of retention , do Bladder scan and reinsert if needed - IV Ceftriaxone started proph for poss Urinary infection - cont Flomax, Proscar -Psych consulted- rec staring Lexapro and decrease Klonopin to 0.25 mg bid - no need for surgery accdg to NeuroSx re: spinous process fracture - Transfuse PRBC 2units now
--- NOTE | 2018-06-27 11:26 | CP.PCM.PN ---
Subjective - Date & Time of Evaluation Date of Evaluation: 06/27/18 Time of Evaluation: 10:00 - Subjective Subjective: S- pt rsting comfortably at time of eval Objective - Vital Signs/Intake and Output Vital Signs (last 24 hours): Temp Pulse Resp BP Pulse Ox 98.5 F 79 18 117/67 95 06/27/18 10:49 06/27/18 10:49 06/27/18 10:49 06/27/18 10:49 06/27/18 08:58 Intake and Output: 06/27/18 06/27/18 06:59 18:59 Intake Total 0 Output Total 800 Balance -800 0 - Medications Medications: Current Medications Acetaminophen (Tylenol 325mg Tab) 650 mg PO Q6 PRN PRN Reason: Pain, Mild (1-3) Amlodipine Besylate (Norvasc) 5 mg PO DAILY [facility] Last Admin: 06/27/18 08:59 Dose: 5 mg Clonazepam (Klonopin) 0.25 mg PO Q12H [facility] Last Admin: 06/27/18 09:05 Dose: 0.25 mg Diltiazem HCl (Cardizem) 30 mg PO QID [facility] Last Admin: 06/27/18 08:58 Dose: 30 mg Enoxaparin Sodium (Lovenox) 40 mg SC DAILY [facility]; Protocol Last Admin: 06/27/18 10:00 Dose: 40 mg Escitalopram Oxalate (Lexapro) 5 mg PO HS [facility] Last Admin: 06/26/18 21:13 Dose: 5 mg Famotidine (Pepcid) 20 mg PO BID [facility] Last Admin: 06/27/18 08:59 Dose: 20 mg Finasteride (Proscar) 5 mg PO DAILY [facility] Last Admin: 06/27/18 09:00 Dose: 5 mg Ceftriaxone Sodium 1 gm/ (Sodium Chloride) 100 mls @ 100 mls/hr IVPB DAILY [facility]; Protocol Last Admin: 06/27/18 09:02 Dose: 100 mls/hr Metoprolol Succinate (Toprol Xl) 50 mg PO DAILY [facility] Last Admin: 06/27/18 09:00 Dose: 50 mg Tamsulosin HCl (Flomax) 0.4 mg PO HS [facility] Last Admin: 06/26/18 21:13 Dose: 0.4 mg - Labs Labs: 06/27/18 04:50 06/27/18 04:50 PT 14.9 Seconds (9.8-13.1) H 06/27/18 04:50 INR 1.3 06/27/18 04:50 APTT 26.4 Seconds (25.6-37.1) 06/27/18 04:50 - Additional Findings Additional findings: Obj systemic- unchanged Musculoskekeltal stance/ gait - defrred pt with shortening and external rotation of lower extremity pt with discomfort, pain and restricted ROM Xray- displaced/ comminuted basicervical/intertrochanteric fx Hip Assessment and Plan - Assessment and Plan (Free Text) Assessment: Displaced/ comminuted intertochanteric/ Basicervical interrtrochanteric femur fx P_ PT WAS INCORRECTLY GIVEN LOVENOX over the weekend?! stat H/H ,Pt/Ptt ordered attempting to take pt to surg tomorrow-either ORIF or THR discussed
[2018-06-27 11:49] LABS: HEMOGLOBIN 9.3 g/dL (12.0-18.0)
[2018-06-27 12:10] LABS: INR 1.3; PROTHROMBIN TIME 15.3 Seconds (9.8-13.1)
[2018-06-27 12:12] LABS: PARTIAL THROMBOPLASTIN TIME 27.1 Seconds (25.6-37.1)
--- NOTE | 2018-06-27 20:57 | PN ---
DATE: 06/27/2018 SUBJECTIVE: The patient denies any chest pain or shortness of breath. Cobb catheter was removed. No recurrence of hematuria. PHYSICAL EXAMINATION: VITAL SIGNS: Blood pressure 116/73, heart rate 75, temperature 98.9, respirations 18. HEENT: Normocephalic. CHEST: Clear. HEART: S1 and S2 regular. EXTREMITIES: No edema. LABORATORY DATA: Today's hemoglobin and hematocrit 9.3 and 27.9. Today's SMA-7 is within normal limits except for chloride of 96 and creatinine 0.7. ASSESSMENT: 1. Right intertrochanteric hip fracture. 2. Recurrent falls. 3. Thoracic aortic aneurysm. 4. Mild aortic insufficiency. 5. Mild anemia. RECOMMENDATIONS: Continue Cardizem 30 mg four times a day, IV Rocephin 1 g daily, Lexapro 5 mg once daily, Lovenox 40 mg subcutaneous once a day, it is currently on hold. Continue Norvasc 5 mg once a day, Toprol-XL 50 mg daily. The patient can undergo open reduction and internal fixation from the cardiac point of view, to be followed up in the Telemetry or ICU depending on the surgical outcome. Janes Velasquez MD
[2018-06-28] MEDS ORDERED: Albuterol-Ipratrop 3 mg / 0.5 (3 ml) UD INH STA (00:50)
[2018-06-28 05:30] LABS: BLOOD UREA NITROGEN 21 mg/dl (9-20); GFR NON-AFRICAN AMERICAN > 60
[2018-06-28 05:37] LABS: HEMOGLOBIN 11.3 g/dL (12.0-18.0); MEAN CELL VOLUME 88.6 fl (80.0-94.0); MEAN CORPUSCULAR HEMOGLOBIN 29.8 pg (27.0-31.0); MEAN CORPUSCULAR HGB CONC 33.6 g/dL (33.0-37.0); RBC 3.79 Mil/uL (4.40-5.90); RED CELL DISTRIBUTION WIDTH 13.1 % (11.5-14.5); WHITE BLOOD COUNT 11.2 K/uL (4.8-10.8)
[2018-06-28] MEDS ORDERED: Sodium Chloride 0.9% 1,000 ML IV SCH ×2 (08:45→17:45)
[2018-06-28] MEDS: Metoprolol Succinate 50 mg XL Tab PO SCH (09:11)
[2018-06-28 09:22] LABS: INR 1.2; PROTHROMBIN TIME 13.9 Seconds (9.8-13.1)
--- NOTE | 2018-06-28 09:47 | CP.PCM.PN ---
Subjective - Date & Time of Evaluation Date of Evaluation: 06/28/18 Time of Evaluation: 07:10 - Subjective Subjective: Pt seen and examined at bedside. Cobb in place due to retention. Pt denies acute overnight events. Planned for R hip ORIF vs total hip replacement today with Dr. Norris. Objective - Vital Signs/Intake and Output Vital Signs (last 24 hours): Temp Pulse Resp BP Pulse Ox 98.2 F 104 H 20 151/89 H 92 L 06/28/18 08:44 06/28/18 09:12 06/28/18 09:12 06/28/18 09:12 06/28/18 09:12 Intake and Output: 06/28/18 06/28/18 06:59 18:59 Intake Total 665 Output Total 1550 Balance -885 - Medications Medications: Current Medications Acetaminophen (Tylenol 325mg Tab) 650 mg PO Q6 PRN PRN Reason: Pain, Mild (1-3) Clonazepam (Klonopin) 0.25 mg PO Q12H [facility] Last Admin: 06/28/18 08:58 Dose: Not Given Diltiazem HCl (Cardizem) 30 mg PO QID [facility] Last Admin: 06/28/18 09:12 Dose: Not Given Enoxaparin Sodium (Lovenox) 40 mg SC DAILY [facility]; Protocol Last Admin: 06/27/18 10:00 Dose: 40 mg Escitalopram Oxalate (Lexapro) 5 mg PO HS [facility] Last Admin: 06/27/18 21:28 Dose: 5 mg Famotidine (Pepcid) 20 mg PO BID [facility] Last Admin: 06/28/18 08:58 Dose: Not Given Finasteride (Proscar) 5 mg PO DAILY [facility] Last Admin: 06/28/18 08:58 Dose: Not Given Ceftriaxone Sodium 1 gm/ (Sodium Chloride) 100 mls @ 100 mls/hr IVPB DAILY [facility]; Protocol Last Admin: 06/28/18 09:01 Dose: 100 mls/hr Sodium Chloride (Sodium Chloride 0.9%) 1,000 mls @ 80 mls/hr IV .[id number] [facility] Stop: 06/29/18 08:35 Last Admin: 06/28/18 09:03 Dose: 80 mls/hr Metoprolol Succinate (Toprol Xl) 50 mg PO DAILY [facility] Last Admin: 06/28/18 09:11 Dose: 50 mg Tamsulosin HCl (Flomax) 0.4 mg PO HS [facility] Last Admin: 06/27/18 21:28 Dose: 0.4 mg - Labs Labs: 06/28/18 04:30 06/28/18 04:30 PT 13.9 Seconds (9.8-13.1) H 06/28/18 08:40 INR 1.2 06/28/18 08:40 APTT 27.1 Seconds (25.6-37.1) 06/27/18 11:38 - Constitutional Appears: No Acute Distress - Eye Exam Eye Exam: EOMI, PERRL - ENT Exam ENT Exam: Mucous Membranes Moist - Respiratory Exam Respiratory Exam: NORMAL BREATHING PATTERN. absent: Wheezes Additional comments: NC at 2 L - Cardiovascular Exam Cardiovascular Exam: +S1, +S2 - GI/Abdominal Exam GI & Abdominal Exam: Soft, Normal Bowel Sounds. absent: Tenderness - Extremities Exam Extremities Exam: Normal Capillary Refill. absent: Calf Tenderness, Full ROM Additional comments: R hip: ecchymosis on inner right thigh - Neurological Exam Neurological Exam: Alert, Awake - Psychiatric Exam Psychiatric exam: Normal Affect, Normal Mood Assessment and Plan - Assessment and Plan (Free Text) Assessment: Pt is an 88 y/o male with hx of HTN, HLD, Anxiety, and Depression brought to ED by EMS after a syncopal episode found to be in Afib with RVR with concomittant intertrochanteric fracture Plan: Syncope -Likely secondary to Afib/Vaso-vagal -Cardiology: Dr. Velasquez; ECHO reviewed. continue rx; can undergo open reduction and internal fixation under gen anesthesia; however, there is moderate cardiac risk; [id number] BP monitor -Neurology: Dr. Castanon: EEG completed, f/u results -Seizure and fall precautions New onset Afib -Afib w/ RVR on presentation -Cardiac monitoring -Rate and rhythm controlled after Cardizem 10mg IV and 30 po once in ED -Will continue with Cardizem 30 QID po and Toprol; Monitor BP closely -Cardiology consult: Dr. Velasquez Acute displaced R. Trochanteric Fx -Ortho: Dr. Norris ORIF vs Total hip replacement TODAY -IVF for elevated BUN -maintain HB >10 for surgery; Transfused 2 units. -follow up H/H: 11.3/33.6 -hold Lovenox; SCDs till surgery -medically optimized for surgery, moderate cardiac risk, will need tele- monitoring post op and resumption of beta-jacklyn Urinary Retention Incontinence -He reports hx of "Prostate problems" -Proscar, Flomax -Cobb in place; for bladder training exercises post op HTN -Metoprolol post op -Monitor BP Azotemia -Mild dehydration -hx: HypoNatremia and hypochloremia; likely contraction metabolic alkalosis -NS at 80 mls/hr Leukocytes w/ neutrophilic predominance -Unclear if pt has underlying infectious process; possible UTI -d/c Zosyn -Started rocephin 1 g daily Cholelithiasis: -Surgery consulted: no surgery indicated; f/u outpatient Non-displaced Fx L5 spinous process -Neurosurgery: No surgery at this time Aneurysm ascending aorta (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 Anup Bautista and taper klonopin DVT ppx -SCDs -hold lovenox: surgery today. -High fall risk Diet -heart healthy -NPO after midnight DNR/DNI: Surrogate decision maker: Evens, son Case and plan d/w Dr. Jassi Villafana MD PGY2
--- NOTE | 2018-06-28 11:42 | CP.PCM.PN ---
Subjective - Date & Time of Evaluation Date of Evaluation: 06/28/18 Time of Evaluation: 11:39 - Subjective Subjective: Neuro Follow-Up Note: Mr. Palm was evaluated this morning at bedside. 1:1 sitter noted at bedside. Pt is currently NPO for the OR today--for right hip ORIF. Pt denies any acute complaints. States that the pain to his right hip is still present but tolerable (now the pain is 3/10). Pt is still confused. Denies h/a, dizziness, visual changes, chest pain, palpitations, sob, cough, abd pain, n/v/d. Objective - Vital Signs/Intake and Output Vital Signs (last 24 hours): Temp Pulse Resp BP Pulse Ox 98.2 F 104 H 20 151/89 H 92 L 06/28/18 08:44 06/28/18 09:12 06/28/18 09:12 06/28/18 09:12 06/28/18 09:12 Intake and Output: 06/28/18 06/28/18 06:59 18:59 Intake Total 665 Output Total 1550 Balance -885 - Medications Medications: Current Medications Acetaminophen (Tylenol 325mg Tab) 650 mg PO Q6 PRN PRN Reason: Pain, Mild (1-3) Clonazepam (Klonopin) 0.25 mg PO Q12H [facility] Last Admin: 06/28/18 08:58 Dose: Not Given Diltiazem HCl (Cardizem) 30 mg PO QID [facility] Last Admin: 06/28/18 09:12 Dose: Not Given Enoxaparin Sodium (Lovenox) 40 mg SC DAILY [facility]; Protocol Last Admin: 06/27/18 10:00 Dose: 40 mg Escitalopram Oxalate (Lexapro) 5 mg PO HS [facility] Last Admin: 06/27/18 21:28 Dose: 5 mg Famotidine (Pepcid) 20 mg PO BID [facility] Last Admin: 06/28/18 08:58 Dose: Not Given Finasteride (Proscar) 5 mg PO DAILY [facility] Last Admin: 06/28/18 08:58 Dose: Not Given Ceftriaxone Sodium 1 gm/ (Sodium Chloride) 100 mls @ 100 mls/hr IVPB DAILY [facility]; Protocol Last Admin: 06/28/18 09:01 Dose: 100 mls/hr Sodium Chloride (Sodium Chloride 0.9%) 1,000 mls @ 80 mls/hr IV .[id number] [facility] Stop: 06/29/18 08:35 Last Admin: 06/28/18 09:03 Dose: 80 mls/hr Metoprolol Succinate (Toprol Xl) 50 mg PO DAILY [facility] Last Admin: 06/28/18 09:11 Dose: 50 mg Tamsulosin HCl (Flomax) 0.4 mg PO HS [facility] Last Admin: 06/27/18 21:28 Dose: 0.4 mg - Labs Labs: 06/28/18 04:30 06/28/18 04:30 PT 13.9 Seconds (9.8-13.1) H 06/28/18 08:40 INR 1.2 06/28/18 08:40 APTT 27.1 Seconds (25.6-37.1) 06/27/18 11:38 - Constitutional Appears: No Acute Distress, Confused - Head Exam Head Exam: ATRAUMATIC, NORMAL INSPECTION, NORMOCEPHALIC - Eye Exam Eye Exam: EOMI, Normal appearance, PERRL Pupil Exam: NORMAL ACCOMODATION, PERRL - ENT Exam ENT Exam: Mucous Membranes Moist - Neck Exam Neck Exam: Full ROM - Respiratory Exam Respiratory Exam: NORMAL BREATHING PATTERN - Extremities Exam Extremities Exam: absent: Calf Tenderness, Full ROM, Pedal Edema Additional comments: Unable to move LLE 2/2 hip fracture; can move left foot and toes. - Neurological Exam Neurological Exam: Alert, Altered, Awake, CN II-XII Intact. absent: Oriented x3 Neuro motor strength exam: Left Upper Extremity: 5, Right Upper Extremity: 5, Left Lower Extremity: 3, Right Lower Extremity: 0 Additional comments: AAO to place and person, disoriented to year. Confused, calm, cooperative Unable to move LLE 2/2 hip fracture; pt can move left foot and can wiggle toes. Sensation is intact b/l No tremors noted; toes downgoing b/l - Psychiatric Exam Additional comments: confused but calm and cooperative - Skin Skin Exam: Normal Color Assessment and Plan (1) Syncope Assessment & Plan: Imaging reviewed: -CT Head (06/24/18): No acute intracranial abnormality.Mild chronic microangiopathic changes and mild age-related global parenchymal volume loss. -ECHO (06/24/18): EF 50-55% -CT C-Spine: No acute fractures. Multilevel degenerative spondylosis as detailed above. -Carotid U/S (06/24/18): Normal Duplex Doppler of the cervical carotid and vertebral arteries. -EEG completed 06/25/18; no results yet--will f/u with results. -Unable to have MRI done as pt has a PPM. -Ortho on the case for right hip fracture--OR today for ORIF. -Cardiology is on the case. -Neurosurgery on the case for a nondisplaced fracture of L-5 left spinous process--no intervention per neurosurgery. -Psych on the case for depression--adjustments to meds noted. -Recommend AC for stroke prevention as pt has a-fib---to be addressed post-op and if cardiology agrees. Please note, pt developed hematuria over the weekend, which has now resolved. -Notify neuro team of any acute changes in pt's condition. Claudia Escobar DNP, [employer] Case discussed with Dr. Castanon Status: Acute
[2018-06-28] MEDS ORDERED: Etomidate 20 mg/10ml Inj IV ONE (13:45)
[2018-06-28] MEDS ORDERED: Rocuronium 10 mg/ml (5 ml) ONE (13:45)
[2018-06-28] MEDS ORDERED: Succinylcholine Chloride 20 mg/ml Syr (5 ml) IV ONE (13:51)
--- NOTE | 2018-06-28 14:46 | PCM.EEG ---
Electroencephalogram Report - Electroencephalogram Report Procedure Date: 06/24/18 Medication: Ceftriaxone, Clonazepam Lexapro Interpretation: s. Technical Information: This was a 16 -channel EEG, 1-channel EKG routine EEG performed using an Peerio machine. Electrodes were applied using the 10/20 international placement system. Start; 10;07 End; 11;05 Total 57 min. Clinical Information: fall During resting wakefulness there was a symmetric posterior dominant rhythm at 8.5-9.5 Hz, 30-50 uV, which was reactive to eye opening and closing. Drowsiness (10;49) was associated with fragmentation of the posterior dominant rhythm and with slow roving eye movements. Light sleep was not recorded. Hyperventilation was performed no changes sen. Photic stimulation was performed and there were no changes on the record. Focal abnormality; none ECG was associated with a normal sinus rhythm. Impression: This is a normal awake and drowsy electroencephalogram.
[2018-06-28] MEDS ORDERED: Bupivacaine HCl 0.5% PF (30 ml) Inj ONE (14:47)
[2018-06-28] MEDS ORDERED: Absorbable Gelatin Sponge Size 12-7 ONE (14:47)
[2018-06-28] MEDS ORDERED: Bacitracin Ointment 30 GM TUBE ONE (14:48)
[2018-06-28] MEDS ORDERED: Lactated Ringer's 1,000 ML IV ONE (14:52)
[2018-06-28] MEDS ORDERED: Sodium Chloride 0.9% 1,000 ML IV ONE (14:55)
[2018-06-28] MEDS ORDERED: Sodium Chloride 0.9% 10 ML IV ONE (15:33)
[2018-06-28] MEDS ORDERED: ePHEDrine 50 mg/ml Inj ONE (15:33)
[2018-06-28] MEDS ORDERED: EPINEPHrine 1 mg/ml (1:1000) Inj ONE (16:15)
[2018-06-28] MEDS ORDERED: Neostigmine 1:1000 (1 mg/ml) Inj ONE (16:53)
[2018-06-28] MEDS ORDERED: HYDROmorphone 0.5 mg/0.5 ml ISec IVP PRN (17:49)
--- NOTE | 2018-06-28 18:10 | PCM.SURG1 ---
Surgeon's Initial Post Op Note - Surgeon's Notes Surgeon: Luther Norris MD Pbx Mechanic: Armando Grace PA-C Type of Anesthesia: General Endo Anesthesia Administered By: Dr. Garza Pre-Operative Diagnosis: Right intertrochanteric hip fracture Operative Findings: same Post-Operative Diagnosis: same Operation Performed: Open reduction internal fixation right intertrochanteric hip fracture Specimen/Specimens Removed: none Estimated Blood Loss: EBL {In ML}: 100 Blood Products Given: N/A Drains Used: No Drains Post-Op Condition: Fair Date of Surgery/Procedure: 06/28/18 Time of Surgery/Procedure: 18:10
[2018-06-28] MEDS ORDERED: Albuterol 0.083% Inhal Sol (2.5 mg/3 mL) UD INH ONE (18:26)
[2018-06-28] MEDS: Lactated Ringer's 1,000 ML IV SCH (20:10)
[2018-06-28] MEDS: ceFAZolin 2 GM in Sodium Chloride 0.9% 100 ML IVPB SCH (22:02)
--- NOTE | 2018-06-28 22:42 | CP.PCM.PCO ---
Assessment & Plan - Assessment and Plan (Free Text) Assessment: Pt is an 88 y/o male s/p POD 0 of R. ORIF Trochanteric Hip fx, now being evaluated postoperatively. As per RN, pt was placed on CIPAP while in PACU for a while due to low oxygen levels, but arrived to Telemetry on nasal cannula. RN states that his Pulse Ox was reading 88-89 so he was placed on CPAP. Pt evaluated at the bedside, noted to be breathing comfortably on CPAP with O2 sat 94-95%, FIO2 40%. He appears calm and in no respiratory distress. States the mask makes him uncomfortable and he could not sleep, pt has been on CIPAP for 2+ hours. Removed temporarily to assess oxygenation on NC 4 L. Over the hour pulse ox ranged from 90-92% and pt was noted to be breathing comfortably. Otherwise Pt is hemodynamicallly stable, appearing comfortable, cardiac exam revealed RRR, no murmurs, lung exam was clear to auscultation, Right LE examined: Hip wound dressing clean dry and intact, no significant LE swelling, Toes warm/pink with good capillary refill, good distal pulses, motor/sensory in tact. SCD's in place. Encouraged pt to participate in incentive spirometry.
[2018-06-29 05:48] LABS: HEMOGLOBIN 10.9 g/dL (12.0-18.0); MEAN CORPUSCULAR HEMOGLOBIN 29.8 pg (27.0-31.0); MEAN CORPUSCULAR HGB CONC 33.5 g/dL (33.0-37.0); RBC 3.66 Mil/uL (4.40-5.90); WHITE BLOOD COUNT 11.4 K/uL (4.8-10.8)
[2018-06-29] MEDS: ceFAZolin 2 GM in Sodium Chloride 0.9% 100 ML IVPB SCH (06:08)
[2018-06-29 06:09] LABS: BLOOD UREA NITROGEN 25 mg/dl (9-20); CALCIUM 7.8 mg/dL (8.4-10.2); GFR NON-AFRICAN AMERICAN > 60
--- NOTE | 2018-06-29 08:36 | CP.PCM.PN ---
Subjective - Date & Time of Evaluation Date of Evaluation: 06/29/18 Time of Evaluation: 07:30 - Subjective Subjective: Patient seen and examined at bedside comfortable. Pain well controlled. No acute events overnight. Denies CP/SOB/dizziness/fever. Objective - Vital Signs/Intake and Output Vital Signs (last 24 hours): Temp Pulse Resp BP Pulse Ox 98 F 97 H 18 110/67 93 L 06/29/18 08:06 06/29/18 08:06 06/29/18 08:06 06/29/18 08:06 06/29/18 08:06 Intake and Output: 06/29/18 06/29/18 06:59 18:59 Output Total 75 Balance -75 - Medications Medications: Current Medications Acetaminophen (Tylenol 325mg Tab) 650 mg PO Q6 PRN PRN Reason: Pain, Mild (1-3) Clonazepam (Klonopin) 0.25 mg PO Q12@1000,2200 [facility] Diltiazem HCl (Cardizem) 30 mg PO QID [facility] Last Admin: 06/28/18 22:07 Dose: 30 mg Docusate Sodium (Colace) 100 mg PO BID [facility] Enoxaparin Sodium (Lovenox) 40 mg SC Q24H [facility]; Protocol Escitalopram Oxalate (Lexapro) 5 mg PO HS [facility] Last Admin: 06/28/18 22:10 Dose: 5 mg Famotidine (Pepcid) 20 mg PO BID [facility] Last Admin: 06/28/18 08:58 Dose: Not Given Finasteride (Proscar) 5 mg PO DAILY [facility] Last Admin: 06/28/18 08:58 Dose: Not Given Ceftriaxone Sodium 1 gm/ (Sodium Chloride) 100 mls @ 100 mls/hr IVPB DAILY [facility]; Protocol Last Admin: 06/28/18 09:01 Dose: 100 mls/hr Lactated Ringer's (Lactated Ringer's) 1,000 mls @ 75 mls/hr IV .[id number] [facility] Last Admin: 06/28/18 20:10 Dose: 0 mls Sodium Chloride (Sodium Chloride 0.9%) 1,000 mls @ 80 mls/hr IV .[id number] [facility] Stop: 06/29/18 18:44 Metoprolol Succinate (Toprol Xl) 50 mg PO DAILY [facility] Last Admin: 06/28/18 09:11 Dose: 50 mg Morphine Sulfate (Morphine) 2 mg IVP Q4 PRN PRN Reason: Pain, severe (8-10) Last Admin: 06/28/18 22:46 Dose: 2 mg Tamsulosin HCl (Flomax) 0.4 mg PO HS [facility] Last Admin: 06/28/18 22:09 Dose: 0.4 mg - Labs Labs: 06/29/18 04:50 06/29/18 04:50 PT 13.9 Seconds (9.8-13.1) H 06/28/18 08:40 INR 1.2 06/28/18 08:40 APTT 27.1 Seconds (25.6-37.1) 06/27/18 11:38 - Extremities Exam Additional comments: RLE: Dressings saturated with sanguineous drainage Incision with minimal bloody drainage, intact with jhoan diffuse ecchymosis sensation intact SP/DP/TN motor intact EHL/FHL/TA/G pedal pulse intact calves soft NT b/l Assessment and Plan (1) Intertrochanteric fracture of right hip Assessment & Plan: POD#1 s/p R hip ORIF with IM nail -Dressings changed -f/u R hip xrays -PT/OT WBAT -DVT ppx -HGB stable -orthopedically stable -discharge planning -above d/w Dr. Norris in agreement Status: Acute
[2018-06-29] MEDS: Metoprolol Succinate 50 mg XL Tab PO SCH (08:55)
[2018-06-29] MEDS: Lactated Ringer's 1,000 ML IV SCH ×3 (08:59→21:10)
--- NOTE | 2018-06-29 09:01 | RAD ---
Date of service: 06/29/2018 PROCEDURE: RIGHT HIP WITH PELVIS RADIOGRAPHS HISTORY: pt in pacu s/p ORIF right hip COMPARISON: Right hip CT without contrast 06/25/2018. TECHNIQUE: Two frontal views of the right hip joint is submitted with a frontal view the pelvis as well. FINDINGS: A comminuted impacted fracture of the proximal right femur/intertrochanteric region has been treated via intramedullary nail and cross linking screw as well as proximal cross linking member extending into the neck of the femur. Reduction of various deformity is appreciated. No dislocation. Postoperative soft tissue changes are seen at the operative site with skin jhoan superficially. IMPRESSION: Status ORIF proximal right femoral fracture as discussed above. Postop changes noted as discussed above.
--- NOTE | 2018-06-29 09:38 | CP.PCM.PN ---
Subjective - Date & Time of Evaluation Date of Evaluation: 06/29/18 Time of Evaluation: 07:00 - Subjective Subjective: Pt seen and examined at bedside this AM. Overnight experienced episode of desaturation. Was placed on CPAP and then on NC 5L. He reports mild R thigh pain. Pending bladder training. Objective - Vital Signs/Intake and Output Vital Signs (last 24 hours): Temp Pulse Resp BP Pulse Ox 98 F 120 H 18 110/67 93 L 06/29/18 08:06 06/29/18 08:56 06/29/18 08:56 06/29/18 08:56 06/29/18 08:56 Intake and Output: 06/29/18 06/29/18 06:59 18:59 Output Total 75 Balance -75 - Medications Medications: Current Medications Acetaminophen (Tylenol 325mg Tab) 650 mg PO Q6 PRN PRN Reason: Pain, Mild (1-3) Clonazepam (Klonopin) 0.25 mg PO Q12@1000,2200 [facility] Diltiazem HCl (Cardizem) 30 mg PO QID [facility] Last Admin: 06/29/18 08:56 Dose: 30 mg Docusate Sodium (Colace) 100 mg PO BID [facility] Last Admin: 06/29/18 08:56 Dose: 100 mg Enoxaparin Sodium (Lovenox) 40 mg SC Q24H [facility]; Protocol Escitalopram Oxalate (Lexapro) 5 mg PO HS [facility] Last Admin: 06/28/18 22:10 Dose: 5 mg Famotidine (Pepcid) 20 mg PO BID [facility] Last Admin: 06/29/18 08:55 Dose: 20 mg Finasteride (Proscar) 5 mg PO DAILY [facility] Last Admin: 06/29/18 08:55 Dose: 5 mg Ceftriaxone Sodium 1 gm/ (Sodium Chloride) 100 mls @ 100 mls/hr IVPB DAILY [facility]; Protocol Last Admin: 06/29/18 09:00 Dose: 100 mls/hr Lactated Ringer's (Lactated Ringer's) 1,000 mls @ 75 mls/hr IV .[id number] [facility] Last Admin: 06/29/18 08:59 Dose: 75 mls/hr Sodium Chloride (Sodium Chloride 0.9%) 1,000 mls @ 80 mls/hr IV .[id number] [facility] Stop: 06/29/18 18:44 Metoprolol Succinate (Toprol Xl) 50 mg PO DAILY [facility] Last Admin: 06/29/18 08:55 Dose: 50 mg Morphine Sulfate (Morphine) 2 mg IVP Q4 PRN PRN Reason: Pain, severe (8-10) Last Admin: 06/28/18 22:46 Dose: 2 mg Tamsulosin HCl (Flomax) 0.4 mg PO HS [facility] Last Admin: 06/28/18 22:09 Dose: 0.4 mg - Labs Labs: 06/29/18 04:50 06/29/18 04:50 PT 13.9 Seconds (9.8-13.1) H 06/28/18 08:40 INR 1.2 06/28/18 08:40 APTT 27.1 Seconds (25.6-37.1) 06/27/18 11:38 - Constitutional Appears: No Acute Distress - Eye Exam Eye Exam: EOMI - ENT Exam ENT Exam: Mucous Membranes Moist - Respiratory Exam Respiratory Exam: Clear to Ausculation Bilateral. absent: Wheezes - Cardiovascular Exam Cardiovascular Exam: +S1, +S2 - GI/Abdominal Exam GI & Abdominal Exam: Soft, Normal Bowel Sounds. absent: Tenderness - Exam Additional comments: Hematoma of R groin - Extremities Exam Extremities Exam: absent: Calf Tenderness Additional comments: stockings in place. R lesion bandage: C/D/I. Left lateral forearm with skin abrasion covered with Kerlix. - Neurological Exam Neurological Exam: Alert, Awake, CN II-XII Intact. absent: Normal Gait (s/p R hip surgery) - Psychiatric Exam Psychiatric exam: Normal Affect, Normal Mood Assessment and Plan - Assessment and Plan (Free Text) Assessment: Pt is an 88 y/o male with hx of HTN, HLD, Anxiety, and Depression brought to ED by EMS after a syncopal episode found to be in Afib with RVR with concomittant intertrochanteric fracture. Plan: Acute displaced R. Trochanteric Fx -POD 1: R hip ORIF w/ IM nail -Ortho: Dr. Norris -IVF for elevated BUN -continue pain management -PT/OT -lovenox restarted -Incentive spirometry -f/u CXR Urinary Retention Incontinence -He reports hx of "Prostate problems" -Proscar, Flomax -Cobb removed this Am. -Continue to monitor for retention Suspected UTI -Rocephin -f/u cultures NG Iron deficiency anemia -Transfused 2 units. -follow up H/H: 10.9/32.6 -Venofer given Syncope -Likely secondary to Afib/Vaso-vagal -Cardiology: Dr. Velasquez; ECHO reviewed. continue rx; there is moderate cardiac risk; -Neurology: Dr. Castanon: EEG Normal awake and drowsy EEG -Seizure and fall precautions New onset Afib -Afib w/ RVR on presentation -Cardiac monitoring -Rate and rhythm controlled after Cardizem 10mg IV and 30 po once in ED -Will continue with Cardizem 30 QID po and Toprol; Monitor BP closely -Cardiology consult: Dr. Velasquez HTN -Metoprolol -Monitor BP Azotemia -Mild dehydration -hx: HypoNatremia and hypochloremia; likely contraction metabolic alkalosis -NS at 80 mls/hr Leukocytes w/ neutrophilic predominance -Unclear if pt has underlying infectious process; possible UTI -d/c Zosyn -rocephin 1 g daily Cholelithiasis: -Surgery consulted: no surgery indicated; f/u outpatient Non-displaced Fx L5 spinous process -Neurosurgery: No surgery at this time Aneurysm ascending aorta (5.4cm) -No sign of rupture or bleed, hemodynamically stable, no urgent management needed -Given significant size, may need endovascular repair in future Anxiety -Klonipin prn; Tapered Depression: Psych: Dr. Hebert Lexapro and taper klonopin DVT ppx -SCDs -hold lovenox: surgery today. -High fall risk Diet -heart healthy -NPO after midnight DNR/DNI: Surrogate decision maker: Evens son Case and plan d/w Dr. Jassi Villafana MD PGY2
--- NOTE | 2018-06-29 11:27 | RAD ---
Date of service: 06/29/2018 PROCEDURE: CHEST RADIOGRAPH, 1 VIEW HISTORY: sob COMPARISON: 06/24/2018. FINDINGS: LUNGS: The lungs are well inflated and clear. There is mild pulmonary venous congestion PLEURA: Small effusions. No pneumothorax. CARDIOVASCULAR: There is severe cardiomegaly. There is unfolding of the aorta. No aortic atherosclerotic calcifications present. OSSEOUS STRUCTURES: Within normal limits for the patient's age. VISUALIZED UPPER ABDOMEN: Normal. OTHER FINDINGS: None. IMPRESSION: No active pulmonary disease. Severe cardiomegaly and small pleural effusions.
[2018-06-29] MEDS ORDERED: Enoxaparin 40 mg Syringe SC SCH (18:00)
--- NOTE | 2018-06-29 18:15 | CARD ---
APPROVED REPORT Date of service: 06/29/2018 EKG Measurement Heart [id number] [id number] <Conclusion> Possible lead misplacement of I and aVR. Normal sinus rhythm Leftr axis deviation Left anterior fascicular block Abnormal ECG
--- NOTE | 2018-06-29 22:46 | PN ---
DATE: 06/29/2018 SUBJECTIVE: The patient underwent right intertrochanteric femoral nailing. He is oriented. His and his son are at the bedside. Denies any chest pain or shortness of breath. PHYSICAL EXAMINATION: VITAL SIGNS: Blood pressure 130/72, heart rate 87, temperature 98, respirations 20. HEENT: Normocephalic. CHEST: Clear. HEART: S1 and S2 regular. LABORATORY DATA: Today's hemoglobin and hematocrit 10.9 and 32.6, white count is 11.4, platelet count 107,000. Today's SMA-7: Sodium 132, potassium 4.1, chloride 101, CO2 of 25, glucose 123, BUN 25, creatinine 0.7. Today's chest x-ray revealed no active pulmonary disease, severe cardiomegaly, and small pleural effusion. Today's EKG revealed sinus tachycardia at a rate of 108, right superior axis. ASSESSMENT: 1. Status post fall and right intertrochanteric fracture. The patient underwent right intertrochanteric femoral nailing. 2. Thoracic aortic aneurysm. 3. Mild aortic insufficiency. 4. Hyperglycemia. RECOMMENDATIONS: Continue Cardizem at 30 mg q.i.d., IV Rocephin 1 g daily, Colace 100 mg twice a day, iron sucrose infusion, lactated Ringer's at 75 mL an hour, and Toprol-XL 50 mg once a day. Janes Velasquez MD
--- NOTE | 2018-06-30 00:16 | OP ---
PROCEDURE DATE: 06/28/2018 PREOPERATIVE DIAGNOSIS: Displaced right intertrochanteric hip fracture. POSTOPERATIVE DIAGNOSIS: Displaced right intertrochanteric hip fracture. PROCEDURES: 1. Open reduction and internal fixation of right intertrochanteric hip fracture/femur fracture with interlocking intramedullary nail. 2. Positioning of fluoroscope interpretation of video images. SURGEON: Fredy Norris MD STONE DERRICKMAN AND RIGGER: WILLIE Proctor, certified registered nursing registered nurse first assistant. SECOND CAREER DEVELOPMENT CONSULTANT: Artis Guan PA-C ANESTHESIA: General tracheal anesthesia. ANESTHESIOLOGIST: Srinivasa Garza MD COMPLICATIONS: No complications. DRAINS: No drains. OPERATIVE INDICATIONS: Lazaro Kent is an 88-year-old gentleman who sustained a traumatic injury to the right hip. The patient presented to the emergency room at [facility] and stabilized. Medical clearance was offered. The patient was taken to surgery after medical clearance obtained and the effects of anticoagulation have been neutralized. After having obtained informed consent; after having identified side, site, and procedure; and a critical pause/time-out, after the satisfactory induction of the anesthetic; the patient identified as Lazaro Kent and was placed in the traction positioner. Closed reduction of the fracture was accomplished using traction and rotation. Under the surgeon's direction, the fluoroscope was positioned. Video images were generated, and therapeutic decisions were made therefrom. The position was found to be acceptable. At this point in time, after having accomplished a successful closed reduction and after positioning the patient with all bony prominences well padded, after sterilely prepping and draping, after having identified side, site, and procedure, and critical pause/time-out, after having obtained informed consent from his son, after the satisfactory induction of the anesthetic, an incision was described approximately 6 inches in length superficial to the greater trochanter. The skin incision was carried down through the skin and subcutaneous tissue. The abductor musculature was divided, and at this point in time, under the surgeon's direction, the fluoroscope was positioned. The guide pin was placed in the greater trochanter. Verification of position was offered on AP and lateral image intensification views. This having been accomplished, reaming was accomplished over the guide pin, and at this point in time, the 10 mm intramedullary interlocking nail was introduced into the femur. This having been accomplished, again verification of position was offered on AP and lateral image intensification views. The concrete batch plant operator was placed, and at this point in time, the triflange nail was to be introduced through the intermedullary nail. Marking was accomplished on the lateral aspect of the femur, and the three tubed [employer] construct indents the skin. At this point in time, an incision approximately 2 inches in length was accomplished using #10 blade. Dissection was carried down to the bone. The guide pin was introduced into the neck and head, and verification of position was offered on AP and lateral image intensification views. This having been accomplished, the guide pin having been introduced. Measurement was accomplished, and at this point in time, the 105 mm triflange nail was introduced. Verification of position was offered on AP and lateral image intensification views. The static locking screw distally at this point in time was placed in the following fashion. The guide tube was placed against the femur. Drilling was accomplished, sounding was accomplished with the depth gauge and the appropriate size screw was placed. Verification of position was again offered on AP and lateral image intensification views. The wound was thoroughly irrigated. After the abductor was removed and after the nail had been locked, the set screws were removed, the guiding device was removed. Hemostasis was controlled with the Aquamantys. Closure of the abductors with #2 Quill, followed by 0 Vicryl, 2-0 Vicryl, and jhoan for skin. The distal incision was accomplished as well. Closure with interrupted Vicryl and jhoan. Compression dressing was applied. Fredy Norris MD
[2018-06-30 06:02] LABS: HEMOGLOBIN 10.7 g/dL (12.0-18.0); MEAN CELL VOLUME 90.3 fl (80.0-94.0); MEAN CORPUSCULAR HEMOGLOBIN 30.4 pg (27.0-31.0); MEAN CORPUSCULAR HGB CONC 33.6 g/dL (33.0-37.0); RBC 3.53 Mil/uL (4.40-5.90); RED CELL DISTRIBUTION WIDTH 13.1 % (11.5-14.5); WHITE BLOOD COUNT 10.9 K/uL (4.8-10.8)
[2018-06-30 06:17] LABS: ALBUMIN 2.7 g/dL (3.5-5.0); ALT/SGPT 31 U/L (21-72); AST/SGOT 24 U/L (17-59); BLOOD UREA NITROGEN 24 mg/dl (9-20); CALCIUM 7.8 mg/dL (8.4-10.2); GFR NON-AFRICAN AMERICAN > 60
[2018-06-30] MEDS: Metoprolol Succinate 50 mg XL Tab PO SCH (08:33)
[2018-06-30] MEDS ORDERED: Levalbuterol 1.25 MG/3 ML Inhal Soln UD INH ONE (09:25)
--- NOTE | 2018-06-30 10:21 | CP.PCM.PN ---
Subjective - Date & Time of Evaluation Date of Evaluation: 06/30/18 Time of Evaluation: 09:45 - Subjective Subjective: Patient seen and examined standing with RW during PT session. Pain is well controlled. Able to transfer to chair with PT yesterday. Wound continues to drain. No acute events overnight. Objective - Vital Signs/Intake and Output Vital Signs (last 24 hours): Temp Pulse Resp BP Pulse Ox 98.2 F 115 H 18 149/90 95 06/30/18 08:15 06/30/18 08:33 06/30/18 08:31 06/30/18 08:33 06/30/18 08:31 - Medications Medications: Current Medications Acetaminophen (Tylenol 325mg Tab) 650 mg PO Q6 PRN PRN Reason: Pain, Mild (1-3) Clonazepam (Klonopin) 0.25 mg PO Q12@1000,2200 [facility] Last Admin: 06/29/18 21:05 Dose: 0.25 mg Diltiazem HCl (Cardizem) 30 mg PO QID [facility] Last Admin: 06/30/18 08:31 Dose: 30 mg Docusate Sodium (Colace) 100 mg PO BID [facility] Last Admin: 06/30/18 08:31 Dose: 100 mg Enoxaparin Sodium (Lovenox) 40 mg SC Q24H [facility]; Protocol Last Admin: 06/29/18 17:02 Dose: 40 mg Escitalopram Oxalate (Lexapro) 5 mg PO HS [facility] Last Admin: 06/29/18 21:02 Dose: 5 mg Famotidine (Pepcid) 20 mg PO BID [facility] Last Admin: 06/30/18 08:32 Dose: 20 mg Finasteride (Proscar) 5 mg PO DAILY [facility] Last Admin: 06/30/18 08:32 Dose: 5 mg Ceftriaxone Sodium 1 gm/ (Sodium Chloride) 100 mls @ 100 mls/hr IVPB DAILY [facility]; Protocol Last Admin: 06/29/18 09:00 Dose: 100 mls/hr Lactated Ringer's (Lactated Ringer's) 1,000 mls @ 75 mls/hr IV .[id number] [facility] Last Admin: 06/29/18 21:10 Dose: 75 mls/hr Iron Sucrose 100 mg/ Sodium (Chloride) 105 mls @ 105 mls/hr IVPB DAILY [facility] Last Admin: 06/30/18 08:34 Dose: 105 mls/hr Metoprolol Succinate (Toprol Xl) 50 mg PO DAILY [facility] Last Admin: 06/30/18 08:33 Dose: 50 mg Morphine Sulfate (Morphine) 2 mg IVP Q4 PRN PRN Reason: Pain, severe (8-10) Last Admin: 06/28/18 22:46 Dose: 2 mg Tamsulosin HCl (Flomax) 0.4 mg PO BID [facility] Last Admin: 06/30/18 08:32 Dose: 0.4 mg - Labs Labs: 06/30/18 05:30 06/30/18 05:30 PT 13.9 Seconds (9.8-13.1) H 06/28/18 08:40 INR 1.2 06/28/18 08:40 APTT 27.1 Seconds (25.6-37.1) 06/27/18 11:38 - Extremities Exam Additional comments: RLE: Dressings saturated with sanguineous drainage Incision with minimal serosang drainage, intact with jhoan diffuse ecchymosis sensation intact SP/DP/TN motor intact EHL/FHL/TA/G pedal pulse intact calves soft NT b/l Assessment and Plan (1) Intertrochanteric fracture of right hip Assessment & Plan: POD#2 s/p R hip ORIF with IM nail -Dressings changed, Wet to dry betadine dressings daily until drainage ceases -bedrest -IV abx for infection ppx -hold PT/OT due to drainage -hold DVT ppx -above d/w Dr. Norris in agreement Status: Acute Radiology Interpretation - Notes: Notes:: Accession No. : [id number] Patient Name / ID : AMBAR CAT / [id number] Exam Date : 06/29/2018 08:21:32 ( Approved ) Study Comment : Sex / Age : M / 88Y Creator : Louis Norwood MD Dictator : Louis Norwood MD Rail Car Repairman : Administrative Support Coordinator : Louis Norwood MD Approver2 : Report Date : 06/29/2018 08:58:10 My Comment : Date of service: 06/29/2018 PROCEDURE: RIGHT HIP WITH PELVIS RADIOGRAPHS HISTORY: pt in pacu s/p ORIF right hip COMPARISON: Right hip CT without contrast 06/25/2018. TECHNIQUE: Two frontal views of the right hip joint is submitted with a frontal view the pelvis as well. FINDINGS: A comminuted impacted fracture of the proximal right femur/intertrochanteric region has been treated via intramedullary nail and cross linking screw as well as proximal cross linking member extending into the neck of the femur. Reduction of various deformity is appreciated. No dislocation. Postoperative soft tissue changes are seen at the operative site with skin jhoan superficially. IMPRESSION: Status ORIF proximal right femoral fracture as discussed above. Postop changes noted as discussed above.
--- NOTE | 2018-06-30 11:04 | CP.PCM.PN ---
<Cameron Villafana - Last Filed: 06/30/18 13:53> Subjective - Date & Time of Evaluation Date of Evaluation: 06/30/18 Time of Evaluation: 07:15 - Subjective Subjective: Pt seen and examined at bedside. Reports mild R lower extremity pain. Objective - Vital Signs/Intake and Output Vital Signs (last 24 hours): Temp Pulse Resp BP Pulse Ox 98.2 F 115 H 18 149/90 95 06/30/18 08:15 06/30/18 08:33 06/30/18 08:31 06/30/18 08:33 06/30/18 08:31 - Medications Medications: Current Medications Acetaminophen (Tylenol 325mg Tab) 650 mg PO Q6 PRN PRN Reason: Pain, Mild (1-3) Clonazepam (Klonopin) 0.25 mg PO Q12@1000,2200 [facility] Last Admin: 06/30/18 10:49 Dose: 0.25 mg Diltiazem HCl (Cardizem) 30 mg PO QID [facility] Last Admin: 06/30/18 08:31 Dose: 30 mg Docusate Sodium (Colace) 100 mg PO BID [facility] Last Admin: 06/30/18 08:31 Dose: 100 mg Enoxaparin Sodium (Lovenox) 40 mg SC Q24H [facility]; Protocol Last Admin: 06/29/18 17:02 Dose: 40 mg Escitalopram Oxalate (Lexapro) 5 mg PO HS [facility] Last Admin: 06/29/18 21:02 Dose: 5 mg Famotidine (Pepcid) 20 mg PO BID [facility] Last Admin: 06/30/18 08:32 Dose: 20 mg Finasteride (Proscar) 5 mg PO DAILY [facility] Last Admin: 06/30/18 08:32 Dose: 5 mg Ceftriaxone Sodium 1 gm/ (Sodium Chloride) 100 mls @ 100 mls/hr IVPB DAILY [facility]; Protocol Last Admin: 06/30/18 10:38 Dose: 100 mls/hr Lactated Ringer's (Lactated Ringer's) 1,000 mls @ 75 mls/hr IV .[id number] [facility] Last Admin: 06/29/18 21:10 Dose: 75 mls/hr Iron Sucrose 100 mg/ Sodium (Chloride) 105 mls @ 105 mls/hr IVPB DAILY [facility] Last Admin: 06/30/18 08:34 Dose: 105 mls/hr Metoprolol Succinate (Toprol Xl) 50 mg PO DAILY [facility] Last Admin: 06/30/18 08:33 Dose: 50 mg Morphine Sulfate (Morphine) 2 mg IVP Q4 PRN PRN Reason: Pain, severe (8-10) Last Admin: 06/28/18 22:46 Dose: 2 mg Tamsulosin HCl (Flomax) 0.4 mg PO BID [facility] Last Admin: 06/30/18 08:32 Dose: 0.4 mg - Labs Labs: 06/30/18 05:30 06/30/18 05:30 PT 13.9 Seconds (9.8-13.1) H 06/28/18 08:40 INR 1.2 06/28/18 08:40 APTT 27.1 Seconds (25.6-37.1) 06/27/18 11:38 - Constitutional Appears: Well, No Acute Distress - Eye Exam Eye Exam: EOMI - ENT Exam ENT Exam: Mucous Membranes Moist - Respiratory Exam Respiratory Exam: Wheezes (expiratory) - Cardiovascular Exam Cardiovascular Exam: Tachycardia, REGULAR RHYTHM, +S1, +S2 - GI/Abdominal Exam GI & Abdominal Exam: Soft, Normal Bowel Sounds. absent: Tenderness - Extremities Exam Extremities Exam: absent: Calf Tenderness Additional comments: R abrasion in groin. L forearm abrasion wrapped in kirlex - Neurological Exam Neurological Exam: Alert, Awake - Psychiatric Exam Psychiatric exam: Normal Affect, Normal Mood Assessment and Plan - Assessment and Plan (Free Text) Assessment: 88 y/o male with hx of HTN, HLD, Anxiety, and Depression brought to ED by EMS after a syncopal episode found to be in Afib with RVR with concomittant intertrochanteric fracture. Plan: Acute displaced R. Trochanteric Fx -POD 2: R hip ORIF w/ IM nail -Ortho: Dr. Norris -Wound draining: Per ortho: recommend hold lovenox, add abx coverage -Start Vanco 1 gm BID -IVF: LR at 75 mls/hr for elevated BUN -continue pain management -PT/OT -lovenox held per ortho 2/2 wound draining -Incentive spirometry q1h Mild wheezing: -expiratory -duoneb x1 given -Duoneb RQID PRN -continue to monitor Urinary Retention/Incontinence -He reports hx of "Prostate problems" -Proscar, Flomax (per family: increased to BID) -Cobb removed yesterday AM. -Intermittent catheterization resulting in 300 cc -Continue to monitor for retention Suspected UTI -Rocephin, empirically -f/u cultures NG Iron deficiency anemia -Transfused 2 units. -follow up H/H: 10.7/31.9 -Venofer given Syncope -Likely secondary to Afib/Vaso-vagal -Cardiology: Dr. Velasquez; ECHO reviewed. continue rx; there is moderate cardiac risk; -Neurology: Dr. Castanon: EEG Normal awake and drowsy EEG -Seizure and fall precautions New onset Afib -Afib w/ RVR on presentation -Cardiac monitoring -Rate and rhythm controlled after Cardizem 10mg IV and 30 po once in ED -Will continue with Cardizem 30 QID po and Toprol; Monitor BP closely -Cardiology consult: Dr. Velasquez HTN -Metoprolol -Monitor BP Azotemia -Mild dehydration -hx: HypoNatremia and hypochloremia; likely contraction metabolic alkalosis Leukocytes w/ neutrophilic predominance -Unclear if pt has underlying infectious process; possible UTI -d/c Zosyn -rocephin 1 g daily; started on vancomycin 1gm q12 Cholelithiasis: -Surgery consulted: no surgery indicated; f/u outpatient Non-displaced Fx L5 spinous process -Neurosurgery: No surgery at this time Aneurysm ascending aorta (5.4cm) -No sign of rupture or bleed, hemodynamically stable, no urgent management needed -Given significant size, may need endovascular repair in future Anxiety -Klonipin prn; Tapered Depression: Psych: Dr. Hebert Lexapro and taper klonopin DVT ppx -SCDs -hold lovenox per ortho 2/2 wound draining -High fall risk Diet -heart healthy DNR/DNI: Surrogate decision maker: matias Horner Case and plan d/w Dr. Tuan Villafana MD PGY2 <Cassandra Dickerson - Last Filed: 06/30/18 18:02> Objective - Vital Signs/Intake and Output Vital Signs (last 24 hours): Temp Pulse Resp BP Pulse Ox 98.5 F 108 H 18 132/69 95 06/30/18 16:00 06/30/18 16:28 06/30/18 16:28 06/30/18 16:28 06/30/18 16:28 - Medications Medications: Current Medications Acetaminophen (Tylenol 325mg Tab) 650 mg PO Q6 PRN PRN Reason: Pain, Mild (1-3) Clonazepam (Klonopin) 0.25 mg PO Q12@1000,2200 [facility] Last Admin: 06/30/18 10:49 Dose: 0.25 mg Diltiazem HCl (Cardizem) 30 mg PO QID [facility] Last Admin: 06/30/18 16:28 Dose: 30 mg Docusate Sodium (Colace) 100 mg PO BID [facility] Last Admin: 06/30/18 16:30 Dose: 100 mg Enoxaparin Sodium (Lovenox) 40 mg SC Q24H [facility]; Protocol Last Admin: 06/29/18 17:02 Dose: 40 mg Escitalopram Oxalate (Lexapro) 5 mg PO HS [facility] Last Admin: 06/29/18 21:02 Dose: 5 mg Famotidine (Pepcid) 20 mg PO BID [facility] Last Admin: 06/30/18 16:27 Dose: 20 mg Finasteride (Proscar) 5 mg PO DAILY [facility] Last Admin: 06/30/18 08:32 Dose: 5 mg Ceftriaxone Sodium 1 gm/ (Sodium Chloride) 100 mls @ 100 mls/hr IVPB DAILY [facility]; Protocol Last Admin: 06/30/18 10:38 Dose: 100 mls/hr Lactated Ringer's (Lactated Ringer's) 1,000 mls @ 75 mls/hr IV .[id number] [facility] Last Admin: 06/29/18 21:10 Dose: 75 mls/hr Iron Sucrose 100 mg/ Sodium (Chloride) 105 mls @ 105 mls/hr IVPB DAILY [facility] Last Admin: 06/30/18 08:34 Dose: 105 mls/hr Vancomycin HCl 1 gm/ Sodium (Chloride) 250 mls @ 166.667 mls/hr IVPB Q12 [facility]; Protocol Last Admin: 06/30/18 13:44 Dose: 166.667 mls/hr Levalbuterol HCl (Xopenex) 1.25 mg INH RQ8 [facility] Metoprolol Succinate (Toprol Xl) 50 mg PO DAILY [facility] Last Admin: 06/30/18 08:33 Dose: 50 mg Morphine Sulfate (Morphine) 2 mg IVP Q4 PRN PRN Reason: Pain, severe (8-10) Last Admin: 06/28/18 22:46 Dose: 2 mg Fluticasone/Salmeterol (Advair Diskus 100/50) 1 puff IH RBID [facility] Tamsulosin HCl (Flomax) 0.4 mg PO BID [facility] Last Admin: 06/30/18 16:28 Dose: 0.4 mg - Labs Labs: 06/30/18 05:30 06/30/18 05:30 PT 13.9 Seconds (9.8-13.1) H 06/28/18 08:40 INR 1.2 06/28/18 08:40 APTT 27.1 Seconds (25.6-37.1) 06/27/18 11:38 Attending/Attestation - Attestation I have personally seen and examined this patient.: Yes I have fully participated in the care of the patient.: Yes I have reviewed all pertinent clinical information, including history, physical exam and plan: Yes Notes (Text): Intertrochanteric Hip Fracture s/p ORIF Fall unclear if Syncope New Onset A Fib ascending Thoracic Aorta 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 Acute Cholecystitis ruled out Anemia prob chronic, and dilutional due to IVF hydration Hydronephrosis, left Urinary Retention L5 Spinous Process Fracture Prostatic Enlargement Depression Dementia prob Alzheimers Asthma , mild intermittent - cont Physical therapy -Ortho held Lovenox for tomorrow due to some bloody discharge from wound - will add IV Vanco empirically to prevent infection -Pain controlled - cont Toprol and Cardizem -Cardio following pt -Intermittent Straight Cath for retention - Flomax increased to BId, cont Proscar - Xopenex neb tx RTC fo mild wheeze and cough, also start Advair -cont IV Ceftriaxone for small leukocytes on UA
[2018-06-30] MEDS ORDERED: Povidone Iodine Topical 10% Sol ONE (11:23)
[2018-06-30] MEDS ORDERED: Albuterol-Ipratrop 3 mg / 0.5 (3 ml) UD INH PRN (13:24)
[2018-06-30] MEDS ORDERED: Albuterol-Ipratrop 3 mg / 0.5 (3 ml) UD ONE (13:31)
[2018-06-30] MEDS ORDERED: Levalbuterol 1.25 MG/3 ML Inhal Soln UD INH SCH (16:00)
--- NOTE | 2018-06-30 18:25 | PN ---
DATE: 06/30/2018 SUBJECTIVE: The patient denies any chest pain. Subcutaneous Lovenox was withheld because of right thigh hematoma. No reported hematuria. PHYSICAL EXAMINATION: VITAL SIGNS: Blood pressure 131/75, heart rate 85, temperature 97.7, respirations 18. HEENT: Normocephalic. CHEST: Clear. HEART: S1 and S2 regular. EXTREMITIES: Ecchymotic and edematous swollen right thigh. LABORATORY DATA: Today's hemoglobin and hematocrit 10.7 and 31.9, white count 10.9, and platelet count 197,000. ASSESSMENT: 1. Status post open reduction and internal fixation of right intertrochanteric fracture. 2. Right thigh hematoma. 3. Thoracic aortic aneurysm. 4. Mild aortic insufficiency. RECOMMENDATIONS: Case was discussed with Dr. Dickerson. Continue Cardizem at 30 mg four times a day, IV Rocephin 1 g daily, Toprol-XL at 50 mg daily. Hold for any further anticoagulation. I recommended obtaining CT scan of the right thigh. Janes Velasquez MD
[2018-06-30] MEDS: Lactated Ringer's 1,000 ML IV SCH ×2 (18:32→18:34)
[2018-06-30] MEDS: Levalbuterol 1.25 MG/3 ML Inhal Soln UD INH SCH ×2 (19:27→23:35)
[2018-06-30] MEDS: Fluticasone-Salmeterol 100-50mcg Diskus IH SCH (20:01)
[2018-07-01 06:10] LABS: HEMOGLOBIN 9.7 g/dL (12.0-18.0); MEAN CELL VOLUME 88.8 fl (80.0-94.0); MEAN CORPUSCULAR HEMOGLOBIN 30.7 pg (27.0-31.0); MEAN CORPUSCULAR HGB CONC 34.6 g/dL (33.0-37.0); RBC 3.15 Mil/uL (4.40-5.90); RED CELL DISTRIBUTION WIDTH 13.5 % (11.5-14.5); WHITE BLOOD COUNT 10.2 K/uL (4.8-10.8)
[2018-07-01 06:29] LABS: BLOOD UREA NITROGEN 15 mg/dl (9-20); CALCIUM 7.8 mg/dL (8.4-10.2); GFR NON-AFRICAN AMERICAN > 60
[2018-07-01] MEDS: Levalbuterol 1.25 MG/3 ML Inhal Soln UD INH SCH ×2 (07:50→15:24)
--- NOTE | 2018-07-01 09:28 | CP.PCM.PN ---
<Cameron Villafana - Last Filed: 07/01/18 11:15> Subjective - Date & Time of Evaluation Date of Evaluation: 07/01/18 Time of Evaluation: 07:00 - Subjective Subjective: Pt seen and examined at bedside. Denies acute overnight events. Dressing changed. Tolerating PO diet. Intermittent cath. Objective - Vital Signs/Intake and Output Vital Signs (last 24 hours): Temp Pulse Resp BP Pulse Ox 97.9 F 95 H 18 147/86 93 L 07/01/18 07:53 07/01/18 07:53 07/01/18 07:53 07/01/18 07:53 07/01/18 07:53 Intake and Output: 07/01/18 07/01/18 06:59 18:59 Intake Total 1390 Output Total 1300 Balance 90 - Medications Medications: Current Medications Acetaminophen (Tylenol 325mg Tab) 650 mg PO Q6 PRN PRN Reason: Pain, Mild (1-3) Clonazepam (Klonopin) 0.25 mg PO Q12@1000,2200 [facility] Last Admin: 06/30/18 21:17 Dose: 0.25 mg Diltiazem HCl (Cardizem) 30 mg PO QID [facility] Last Admin: 06/30/18 21:16 Dose: 30 mg Docusate Sodium (Colace) 100 mg PO BID [facility] Last Admin: 06/30/18 16:30 Dose: 100 mg Enoxaparin Sodium (Lovenox) 40 mg SC Q24H [facility]; Protocol Last Admin: 06/29/18 17:02 Dose: 40 mg Escitalopram Oxalate (Lexapro) 5 mg PO HS [facility] Last Admin: 06/30/18 21:17 Dose: 5 mg Famotidine (Pepcid) 20 mg PO BID [facility] Last Admin: 06/30/18 16:27 Dose: 20 mg Finasteride (Proscar) 5 mg PO DAILY [facility] Last Admin: 06/30/18 08:32 Dose: 5 mg Ceftriaxone Sodium 1 gm/ (Sodium Chloride) 100 mls @ 100 mls/hr IVPB DAILY [facility]; Protocol Last Admin: 06/30/18 10:38 Dose: 100 mls/hr Iron Sucrose 100 mg/ Sodium (Chloride) 105 mls @ 105 mls/hr IVPB DAILY [facility] Last Admin: 06/30/18 08:34 Dose: 105 mls/hr Vancomycin HCl 1 gm/ Sodium (Chloride) 250 mls @ 166.667 mls/hr IVPB Q12 [facility]; Protocol Last Admin: 06/30/18 20:03 Dose: 166.667 mls/hr Levalbuterol HCl (Xopenex) 1.25 mg INH RQ8 [facility] Last Admin: 07/01/18 07:50 Dose: 1.25 mg Metoprolol Succinate (Toprol Xl) 50 mg PO DAILY [facility] Last Admin: 06/30/18 08:33 Dose: 50 mg Morphine Sulfate (Morphine) 2 mg IVP Q4 PRN PRN Reason: Pain, severe (8-10) Last Admin: 06/28/18 22:46 Dose: 2 mg Fluticasone/Salmeterol (Advair Diskus 100/50) 1 puff IH RBID [facility] Last Admin: 06/30/18 20:01 Dose: 1 puff Tamsulosin HCl (Flomax) 0.4 mg PO BID [facility] Last Admin: 06/30/18 16:28 Dose: 0.4 mg - Labs Labs: 07/01/18 05:30 07/01/18 05:30 PT 13.9 Seconds (9.8-13.1) H 06/28/18 08:40 INR 1.2 06/28/18 08:40 APTT 27.1 Seconds (25.6-37.1) 06/27/18 11:38 - Constitutional Appears: No Acute Distress - Eye Exam Eye Exam: EOMI - ENT Exam ENT Exam: Mucous Membranes Moist - Respiratory Exam Respiratory Exam: Clear to Ausculation Bilateral. absent: Wheezes - Cardiovascular Exam Cardiovascular Exam: +S1, +S2 - GI/Abdominal Exam GI & Abdominal Exam: Soft, Normal Bowel Sounds. absent: Tenderness - Extremities Exam Additional comments: L forearm with sutures in place. Incision dry; Also with abrasion with kirlex wrap - Neurological Exam Neurological Exam: Alert, Awake - Psychiatric Exam Psychiatric exam: Normal Affect, Normal Mood Assessment and Plan - Assessment and Plan (Free Text) Assessment: 88 y/o male with hx of HTN, HLD, Anxiety, and Depression brought to ED by EMS after a syncopal episode found to be in Afib with RVR with concomittant intertrochanteric fracture. Plan: Acute displaced R. Trochanteric Fx -POD 3: R hip ORIF w/ IM nail -Ortho: Dr. Norris -Wound draining: Per ortho: recommend hold lovenox and PT/OT, abx coverage -c/w Vanco 1 gm BID -c/w pain management -PT/OT: held -lovenox held per ortho 2/2 wound draining -Incentive spirometry q1h -Dr. Mac: Recommend R thigh CT Mild wheezing: -expiratory -Xopenex RQID -Advair RBID -continue to monitor Urinary Retention/Incontinence -He reports hx of "Prostate problems" -Proscar, Flomax (per family: increased to BID) -Intermittent catheterization resulting in 700 cc -Continue to monitor for retention Suspected UTI -C/W Rocephin, empirically -f/u cultures NG Iron deficiency anemia -Transfused 2 units. -follow up H/H: 9.7/28.0 -Venofer given Syncope -Likely secondary to Afib/Vaso-vagal -Cardiology: Dr. Velasquez; ECHO reviewed. continue rx; -Neurology: Dr. Castanon: EEG Normal awake and drowsy EEG -Seizure and fall precautions New onset Afib -Afib w/ RVR on presentation -Cardiac monitoring -Rate and rhythm controlled after Cardizem 10mg IV and 30 po once in ED -Will continue with Cardizem 30 QID po and Toprol; Monitor BP closely -Cardiology consult: Dr. Velasquez HTN -Metoprolol -Monitor BP Azotemia -Mild dehydration -hx: HypoNatremia and hypochloremia; likely contraction metabolic alkalosis Leukocytes w/ neutrophilic predominance -Unclear if pt has underlying infectious process; possible UTI -d/c Zosyn -rocephin 1 g daily; started on vancomycin 1gm q12 Cholelithiasis: -Surgery consulted: no surgery indicated; f/u outpatient Non-displaced Fx L5 spinous process -Neurosurgery: No surgery at this time Aneurysm ascending aorta (5.4cm) -No sign of rupture or bleed, hemodynamically stable, no urgent management neede d -Given significant size, may need endovascular repair in future Anxiety -Klonipin prn; Tapered Depression: Psych: Dr. Hebert Lexapro and taper klonopin DVT ppx -SCDs -hold lovenox per ortho 2/2 wound draining -High fall risk -PT/OT: held per ortho Diet -heart healthy DNR/DNI: Surrogate decision maker: matias Horner Case and plan d/w Dr. Tuan Villafana MD PGY2 <Cassandra Dickerson - Last Filed: 07/01/18 16:50> Objective - Vital Signs/Intake and Output Vital Signs (last 24 hours): Temp Pulse Resp BP Pulse Ox 99.8 F H 85 18 128/70 97 07/01/18 16:25 07/01/18 16:25 07/01/18 16:25 07/01/18 16:25 07/01/18 16:25 Intake and Output: 07/01/18 07/01/18 06:59 18:59 Intake Total 1390 Output Total 1300 Balance 90 - Medications Medications: Current Medications Acetaminophen (Tylenol 325mg Tab) 650 mg PO Q6 PRN PRN Reason: Pain, Mild (1-3) Clonazepam (Klonopin) 0.25 mg PO Q12@1000,2200 [facility] Last Admin: 07/01/18 10:24 Dose: 0.25 mg Diltiazem HCl (Cardizem) 30 mg PO QID [facility] Last Admin: 07/01/18 13:47 Dose: 30 mg Docusate Sodium (Colace) 100 mg PO BID [facility] Last Admin: 07/01/18 10:16 Dose: 100 mg Enoxaparin Sodium (Lovenox) 40 mg SC Q24H [facility]; Protocol Last Admin: 06/29/18 17:02 Dose: 40 mg Escitalopram Oxalate (Lexapro) 5 mg PO HS [facility] Last Admin: 06/30/18 21:17 Dose: 5 mg Famotidine (Pepcid) 20 mg PO BID [facility] Last Admin: 07/01/18 10:18 Dose: 20 mg Finasteride (Proscar) 5 mg PO DAILY [facility] Last Admin: 07/01/18 10:17 Dose: 5 mg Ceftriaxone Sodium 1 gm/ (Sodium Chloride) 100 mls @ 100 mls/hr IVPB DAILY [facility]; Protocol Last Admin: 07/01/18 10:18 Dose: 100 mls/hr Iron Sucrose 100 mg/ Sodium (Chloride) 105 mls @ 105 mls/hr IVPB DAILY [facility] Last Admin: 07/01/18 10:16 Dose: 105 mls/hr Vancomycin HCl 1 gm/ Sodium (Chloride) 250 mls @ 166.667 mls/hr IVPB Q12 [facility]; Protocol Last Admin: 07/01/18 10:19 Dose: 166.667 mls/hr Levalbuterol HCl (Xopenex) 1.25 mg INH RQ8 [facility] Last Admin: 07/01/18 15:24 Dose: 1.25 mg Metoprolol Succinate (Toprol Xl) 50 mg PO DAILY [facility] Last Admin: 07/01/18 10:16 Dose: 50 mg Morphine Sulfate (Morphine) 2 mg IVP Q4 PRN PRN Reason: Pain, severe (8-10) Last Admin: 06/28/18 22:46 Dose: 2 mg Fluticasone/Salmeterol (Advair Diskus 100/50) 1 puff IH RBID [facility] Last Admin: 07/01/18 10:19 Dose: 1 puff Tamsulosin HCl (Flomax) 0.4 mg PO BID [facility] Last Admin: 07/01/18 10:19 Dose: 0.4 mg - Labs Labs: 07/01/18 05:30 07/01/18 05:30 PT 13.9 Seconds (9.8-13.1) H 06/28/18 08:40 INR 1.2 06/28/18 08:40 APTT 27.1 Seconds (25.6-37.1) 06/27/18 11:38 Attending/Attestation - Attestation I have personally seen and examined this patient.: Yes I have fully participated in the care of the patient.: Yes I have reviewed all pertinent clinical information, including history, physical exam and plan: Yes Notes (Text): Intertrochanteric Hip Fracture s/p ORIF Fall unclear if Syncope New Onset A Fib, one episode ascending Thoracic Aorta 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 Acute Cholecystitis ruled out Anemia prob chronic, and dilutional due to IVF hydration Hydronephrosis, left Urinary Retention L5 Spinous Process Fracture Prostatic Enlargement Depression Dementia prob Alzheimers Asthma , mild intermittent - cont Physical therapy -Ortho held Lovenox today due to some bloody discharge from wound, will monitor this drainage overnight , if resolve , poss d/c to [facility] in am -cont IV Vanco empirically to prevent infection -Pain controlled - cont Toprol and Cardizem -Cardio following pt -Intermittent Straight Cath for retention - Flomax increased to BId, cont Proscar, will consult pt's Urologist Dr Palm - Xopenex neb tx RTC fo mild wheeze and cough, cont Advair -cont IV Ceftriaxone for small leukocytes in UA 07/01/18 16:50
--- NOTE | 2018-07-01 09:34 | CP.PCM.PN ---
Subjective - Date & Time of Evaluation Date of Evaluation: 07/01/18 Time of Evaluation: 08:00 - Subjective Subjective: Patient seen and examined at bedside. Pain well controlled. No acute events overnight. Wound drainage has improved. PT/lovenox held, on IV abx. No other complaints. Objective - Vital Signs/Intake and Output Vital Signs (last 24 hours): Temp Pulse Resp BP Pulse Ox 97.9 F 95 H 18 147/86 93 L 07/01/18 07:53 07/01/18 07:53 07/01/18 07:53 07/01/18 07:53 07/01/18 07:53 Intake and Output: 07/01/18 07/01/18 06:59 18:59 Intake Total 1390 Output Total 1300 Balance 90 - Medications Medications: Current Medications Acetaminophen (Tylenol 325mg Tab) 650 mg PO Q6 PRN PRN Reason: Pain, Mild (1-3) Clonazepam (Klonopin) 0.25 mg PO Q12@1000,2200 [facility] Last Admin: 06/30/18 21:17 Dose: 0.25 mg Diltiazem HCl (Cardizem) 30 mg PO QID [facility] Last Admin: 06/30/18 21:16 Dose: 30 mg Docusate Sodium (Colace) 100 mg PO BID [facility] Last Admin: 06/30/18 16:30 Dose: 100 mg Enoxaparin Sodium (Lovenox) 40 mg SC Q24H [facility]; Protocol Last Admin: 06/29/18 17:02 Dose: 40 mg Escitalopram Oxalate (Lexapro) 5 mg PO HS [facility] Last Admin: 06/30/18 21:17 Dose: 5 mg Famotidine (Pepcid) 20 mg PO BID [facility] Last Admin: 06/30/18 16:27 Dose: 20 mg Finasteride (Proscar) 5 mg PO DAILY [facility] Last Admin: 06/30/18 08:32 Dose: 5 mg Ceftriaxone Sodium 1 gm/ (Sodium Chloride) 100 mls @ 100 mls/hr IVPB DAILY [facility]; Protocol Last Admin: 06/30/18 10:38 Dose: 100 mls/hr Iron Sucrose 100 mg/ Sodium (Chloride) 105 mls @ 105 mls/hr IVPB DAILY [facility] Last Admin: 06/30/18 08:34 Dose: 105 mls/hr Vancomycin HCl 1 gm/ Sodium (Chloride) 250 mls @ 166.667 mls/hr IVPB Q12 [facility]; Protocol Last Admin: 06/30/18 20:03 Dose: 166.667 mls/hr Levalbuterol HCl (Xopenex) 1.25 mg INH RQ8 [facility] Last Admin: 07/01/18 07:50 Dose: 1.25 mg Metoprolol Succinate (Toprol Xl) 50 mg PO DAILY [facility] Last Admin: 06/30/18 08:33 Dose: 50 mg Morphine Sulfate (Morphine) 2 mg IVP Q4 PRN PRN Reason: Pain, severe (8-10) Last Admin: 06/28/18 22:46 Dose: 2 mg Fluticasone/Salmeterol (Advair Diskus 100/50) 1 puff IH RBID [facility] Last Admin: 06/30/18 20:01 Dose: 1 puff Tamsulosin HCl (Flomax) 0.4 mg PO BID [facility] Last Admin: 06/30/18 16:28 Dose: 0.4 mg - Labs Labs: 07/01/18 05:30 07/01/18 05:30 PT 13.9 Seconds (9.8-13.1) H 06/28/18 08:40 INR 1.2 06/28/18 08:40 APTT 27.1 Seconds (25.6-37.1) 06/27/18 11:38 - Extremities Exam Additional comments: RLE: Dressings with moderate serosang drainage Incision with trace serosang drainage, intact with jhoan diffuse ecchymosis improving sensation intact SP/DP/TN motor intact EHL/FHL/TA/G pedal pulse intact calves soft NT b/l Assessment and Plan (1) Intertrochanteric fracture of right hip Assessment & Plan: POD#3 s/p R hip ORIF with IM nail -Wound drainage improving. Dressings changed, Wet to dry betadine dressings -cont. bedrest -IV abx for infection ppx -hold PT/OT -hold DVT ppx -above d/w Dr. Norris in agreement Status: Acute
[2018-07-01] MEDS: Metoprolol Succinate 50 mg XL Tab PO SCH (10:16)
[2018-07-01] MEDS: Fluticasone-Salmeterol 100-50mcg Diskus IH SCH ×2 (10:19→20:23)
--- NOTE | 2018-07-01 18:19 | CARD ---
APPROVED REPORT Date of service: 07/01/2018 EKG Measurement Heart [id number] <Conclusion> Sinus tachycardia with premature atrial complexes and sinus pause Left axis deviation Abnormal ECG
--- NOTE | 2018-07-01 20:35 | PN ---
DATE: 07/01/2018 SUBJECTIVE: The patient complains of right side discomfort. No retrosternal chest pain. PHYSICAL EXAMINATION: VITAL SIGNS: Blood pressure 123/72, heart rate 120, temperature 98.5, and respirations 18. HEENT: Pale conjunctivae. CHEST: Clear. HEART: S1, S2 regular. EXTREMITIES: Right side ecchymosis and edema. LABORATORY DATA: Hemoglobin and hematocrit 9.7 and 28, which is a drop of 1 g compared to yesterday. White count and platelet count are within normal limits. Today's SMA-7: Sodium 138, potassium 4, chloride 92, CO2 of 30, glucose 106, BUN 15, creatinine 0.6. ASSESSMENT: 1. Status post open reduction and internal fixation of right intertrochanteric fracture. 2. Consider right side hematoma. 3. Thoracic aortic aneurysm and mild aortic insufficiency. 4. Anemia, requiring 2 units of packed red blood cell transfusion. RECOMMENDATIONS: The patient is still off subcutaneous Lovenox, continue Cardizem at 30 mg q.i.d., IV Rocephin 1 g daily, iron sucrose infusion, IV morphine 2 mg p.r.n. every 4 hours, IV vancomycin at 1 g every 12 hours, obtain 12-lead EKG. Janes Velasquez MD
[2018-07-02] MEDS: Levalbuterol 1.25 MG/3 ML Inhal Soln UD INH SCH ×3 (00:15→15:15)
[2018-07-02 05:22] LABS: HEMOGLOBIN 9.8 g/dL (12.0-18.0); MEAN CELL VOLUME 89.6 fl (80.0-94.0); MEAN CORPUSCULAR HEMOGLOBIN 30.9 pg (27.0-31.0); MEAN CORPUSCULAR HGB CONC 34.5 g/dL (33.0-37.0); RBC 3.19 Mil/uL (4.40-5.90); RED CELL DISTRIBUTION WIDTH 13.4 % (11.5-14.5); WHITE BLOOD COUNT 10.4 K/uL (4.8-10.8)
[2018-07-02 05:30] LABS: BLOOD UREA NITROGEN 14 mg/dl (9-20); CALCIUM 7.7 mg/dL (8.4-10.2); GFR NON-AFRICAN AMERICAN > 60
[2018-07-02] MEDS: Metoprolol Succinate 50 mg XL Tab PO SCH (08:43)
[2018-07-02] MEDS: Fluticasone-Salmeterol 100-50mcg Diskus IH SCH ×2 (08:56→20:30)
--- NOTE | 2018-07-02 10:04 | PQF ---
PROVIDER RESPONSE TEXT: With REVIEWER QUERY TEXT: Asthma Specificity and Type Mild Intermittent Asthma is documented in the Medical Record. Addendum to PN 06/30: For SOB with wheezing: d/c duoneb ,Add Xopenex rq8 ,Advair 2 puff IH RBID Please specify if the Mild Intermittent Asthma is with or without an exacerbation The patient's Clinical Indicators include: Mild Intermittent Asthma is documented in the Medical Record. Addendum to PN 06/30: For SOB with wheezing: d/c duoneb ,Add Xopenex rq8 ,Advair 2 puff IH RBID Query created by: Jazlyn Torres on 07/01/2018 9:22 AM Electronically signed by: Cameron Villafana 07/02/2018 8:24 AM
--- NOTE | 2018-07-02 10:31 | CP.PCM.PN ---
<Cameron Villafana - Last Filed: 07/02/18 11:29> Subjective - Date & Time of Evaluation Date of Evaluation: 07/02/18 Time of Evaluation: 07:15 - Subjective Subjective: Pt seen and examined at bedside this am. Denies acute overnight events. Still retaining fluids. Remains afebrile. Dressing changed per ortho. Objective - Vital Signs/Intake and Output Vital Signs (last 24 hours): Temp Pulse Resp BP Pulse Ox 98.4 F 112 H 18 163/77 H 97 07/02/18 07:49 07/02/18 08:43 07/02/18 08:46 07/02/18 08:46 07/02/18 07:49 - Medications Medications: Current Medications Acetaminophen (Tylenol 325mg Tab) 650 mg PO Q6 PRN PRN Reason: Pain, Mild (1-3) Last Admin: 07/01/18 21:35 Dose: 650 mg Clonazepam (Klonopin) 0.25 mg PO Q12@1000,2200 [facility] Last Admin: 07/01/18 21:29 Dose: 0.25 mg Diltiazem HCl (Cardizem) 30 mg PO QID [facility] Last Admin: 07/02/18 08:46 Dose: 30 mg Docusate Sodium (Colace) 100 mg PO BID [facility] Last Admin: 07/02/18 08:43 Dose: 100 mg Enoxaparin Sodium (Lovenox) 40 mg SC Q24H [facility]; Protocol Last Admin: 06/29/18 17:02 Dose: 40 mg Escitalopram Oxalate (Lexapro) 5 mg PO HS [facility] Last Admin: 07/01/18 21:29 Dose: 5 mg Famotidine (Pepcid) 20 mg PO BID [facility] Last Admin: 07/02/18 08:45 Dose: 20 mg Finasteride (Proscar) 5 mg PO DAILY [facility] Last Admin: 07/02/18 08:43 Dose: 5 mg Ceftriaxone Sodium 1 gm/ (Sodium Chloride) 100 mls @ 100 mls/hr IVPB DAILY [facility]; Protocol Last Admin: 07/02/18 08:47 Dose: 100 mls/hr Vancomycin HCl 1 gm/ Sodium (Chloride) 250 mls @ 166.667 mls/hr IVPB Q12 [facility]; Protocol Last Admin: 07/01/18 20:25 Dose: 166.667 mls/hr Levalbuterol HCl (Xopenex) 1.25 mg INH RQ8 [facility] Last Admin: 07/02/18 07:49 Dose: 1.25 mg Metoprolol Succinate (Toprol Xl) 50 mg PO DAILY [facility] Last Admin: 07/02/18 08:43 Dose: 50 mg Morphine Sulfate (Morphine) 2 mg IVP Q4 PRN PRN Reason: Pain, severe (8-10) Last Admin: 06/28/18 22:46 Dose: 2 mg Fluticasone/Salmeterol (Advair Diskus 100/50) 1 puff IH RBID [facility] Last Admin: 07/02/18 08:56 Dose: 1 puff Tamsulosin HCl (Flomax) 0.4 mg PO BID [facility] Last Admin: 07/02/18 08:45 Dose: 0.4 mg - Labs Labs: 07/02/18 04:40 07/02/18 04:40 PT 13.9 Seconds (9.8-13.1) H 06/28/18 08:40 INR 1.2 06/28/18 08:40 APTT 27.1 Seconds (25.6-37.1) 06/27/18 11:38 - Constitutional Appears: No Acute Distress - Eye Exam Eye Exam: EOMI - ENT Exam ENT Exam: Mucous Membranes Moist - Respiratory Exam Respiratory Exam: Clear to Ausculation Bilateral, NORMAL BREATHING PATTERN. absent: Wheezes - Cardiovascular Exam Cardiovascular Exam: +S1, +S2 - GI/Abdominal Exam GI & Abdominal Exam: Soft, Normal Bowel Sounds. absent: Tenderness - Extremities Exam Additional comments: R lateral thigh/hip with bandage in place. Echhymosis improving. - Neurological Exam Neurological Exam: Alert, Awake - Psychiatric Exam Psychiatric exam: Normal Affect, Normal Mood Assessment and Plan - Assessment and Plan (Free Text) Assessment: 88 y/o male with hx of HTN, HLD, Anxiety, and Depression brought to ED by EMS after a syncopal episode found to be in Afib with RVR with concomittant intertrochanteric fracture. Plan: Acute displaced R. Trochanteric Fx -POD 4: R hip ORIF w/ IM nail -Ortho: Dr. Norris -Wound draining: Per ortho: recommend hold lovenox and PT/OT, abx coverage -c/w Vanco 1 gm BID -Vanc trough: 8.4 -c/w pain management -PT/OT: held -Incentive spirometry q1h -Dr. Mac: Mild wheezing: -none on today's exam -Xopenex RQID -Advair RBID -continue to monitor Urinary Retention/Incontinence -He reports hx of "Prostate problems" -Proscar, Flomax (per family: increased to BID) -Intermittent catheterization resulting in 800 cc -Cobb inserted today -Urology: Dr. Bautista: recs appreciated -Continue to monitor for retention Suspected UTI -C/W Rocephin, empirically -f/u cultures: NG Iron deficiency anemia -Transfused 2 units -follow up H/H: 9.8/28.5 -Venofer given Syncope -Likely secondary to Afib/Vaso-vagal -Cardiology: Dr. Velasquez; ECHO reviewed. continue rx; -Neurology: Dr. Castanon: EEG Normal awake and drowsy EEG -Seizure and fall precautions New onset Afib -Afib w/ RVR on presentation -Cardiac monitoring -Rate and rhythm controlled after Cardizem 10mg IV and 30 po once in ED -Will continue with Cardizem 30 QID po and Toprol; Monitor BP closely -Cardiology consult: Dr. Velasquez HTN -Metoprolol -Monitor BP Azotemia -Mild dehydration -hx: HypoNatremia and hypochloremia; likely contraction metabolic alkalosis Leukocytes w/ neutrophilic predominance -Unclear if pt has underlying infectious process; possible UTI -d/c Zosyn -rocephin 1 g daily; started on vancomycin 1gm q12 Cholelithiasis: -Surgery consulted: no surgery indicated; f/u outpatient Non-displaced Fx L5 spinous process -Neurosurgery: No surgery at this time Aneurysm ascending aorta (5.4cm) -No sign of rupture or bleed, hemodynamically stable, no urgent management needed -Given significant size, may need endovascular repair in future Anxiety -Klonipin prn; Tapered Depression: Psych: Dr. Anup Bautista and taper klonopin DVT ppx -SCDs -hold lovenox per ortho 2/2 wound draining -High fall risk -PT/OT: held per ortho Diet -heart healthy DNR/DNI: Surrogate decision maker: Evens, son Case and plan d/w Dr. Tuan Villafana MD PGY2 <Cassandra Dickerson - Last Filed: 07/02/18 17:12> Objective - Vital Signs/Intake and Output Vital Signs (last 24 hours): Temp Pulse Resp BP Pulse Ox 98.0 F 94 H 20 128/78 94 L 07/02/18 15:42 07/02/18 16:29 07/02/18 15:42 07/02/18 16:29 07/02/18 15:42 Intake and Output: 07/02/18 07/02/18 06:59 18:59 Output Total 1200 Balance -1200 - Medications Medications: Current Medications Acetaminophen (Tylenol 325mg Tab) 650 mg PO Q6 PRN PRN Reason: Pain, Mild (1-3) Last Admin: 07/01/18 21:35 Dose: 650 mg Clonazepam (Klonopin) 0.25 mg PO Q12@1000,2200 [facility] Last Admin: 07/02/18 11:13 Dose: Not Given Diltiazem HCl (Cardizem) 30 mg PO QID [facility] Last Admin: 07/02/18 16:29 Dose: 30 mg Docusate Sodium (Colace) 100 mg PO BID [facility] Last Admin: 07/02/18 16:40 Dose: 100 mg Enoxaparin Sodium (Lovenox) 40 mg SC Q24H [facility]; Protocol Last Admin: 06/29/18 17:02 Dose: 40 mg Escitalopram Oxalate (Lexapro) 5 mg PO HS [facility] Last Admin: 07/01/18 21:29 Dose: 5 mg Famotidine (Pepcid) 20 mg PO BID [facility] Last Admin: 07/02/18 16:42 Dose: 20 mg Finasteride (Proscar) 5 mg PO DAILY [facility] Last Admin: 07/02/18 08:43 Dose: 5 mg Ceftriaxone Sodium 1 gm/ (Sodium Chloride) 100 mls @ 100 mls/hr IVPB DAILY [facility]; Protocol Last Admin: 07/02/18 08:47 Dose: 100 mls/hr Vancomycin HCl 1 gm/ Sodium (Chloride) 250 mls @ 166.667 mls/hr IVPB Q12 [facility]; Protocol Last Admin: 07/02/18 10:48 Dose: 166.667 mls/hr Levalbuterol HCl (Xopenex) 1.25 mg INH RQ8 [facility] Last Admin: 07/02/18 15:15 Dose: 1.25 mg Metoprolol Succinate (Toprol Xl) 50 mg PO DAILY [facility] Last Admin: 07/02/18 08:43 Dose: 50 mg Morphine Sulfate (Morphine) 2 mg IVP Q4 PRN PRN Reason: Pain, severe (8-10) Last Admin: 06/28/18 22:46 Dose: 2 mg Fluticasone/Salmeterol (Advair Diskus 100/50) 1 puff IH RBID [facility] Last Admin: 07/02/18 08:56 Dose: 1 puff Tamsulosin HCl (Flomax) 0.4 mg PO BID [facility] Last Admin: 07/02/18 16:41 Dose: 0.4 mg - Labs Labs: 07/02/18 04:40 07/02/18 04:40 PT 13.9 Seconds (9.8-13.1) H 06/28/18 08:40 INR 1.2 06/28/18 08:40 APTT 27.1 Seconds (25.6-37.1) 06/27/18 11:38 Attending/Attestation - Attestation I have personally seen and examined this patient.: Yes I have fully participated in the care of the patient.: Yes I have reviewed all pertinent clinical information, including history, physical exam and plan: Yes Notes (Text): Intertrochanteric Hip Fracture s/p ORIF Fall unclear if Syncope New Onset A Fib, one episode ascending Thoracic Aorta 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 Acute Cholecystitis ruled out Anemia prob chronic, and dilutional due to IVF hydration Hydronephrosis, left Urinary Retention L5 Spinous Process Fracture Prostatic Enlargement Depression Dementia prob Alzheimers Asthma , mild intermittent - cont Physical therapy -Ortho held Lovenox due to some bloody discharge from wound, will continue monitor this drainage as per Ortho, hold d/c to [facility] -cont IV Vanco empirically to prevent infection, ID consult - Dr Puentes -Pain controlled - cont Toprol and Cardizem -Cardio following pt -Cobb Cath for retention - Flomax increased to BId, cont Proscar, will consult Urology - Dr Bautista - Xopenex neb tx RTC fo mild wheeze and cough, cont Advair -cont IV Ceftriaxone for small leukocytes in UA, Urine c/s
--- NOTE | 2018-07-02 10:43 | CP.PCM.PN ---
Subjective - Date & Time of Evaluation Date of Evaluation: 07/02/18 Time of Evaluation: 09:00 - Subjective Subjective: Patient seen and examined at bedside comfortable. Continues bedrest due to wound drainage. R hip pain improves daily. No other complaints. Objective - Vital Signs/Intake and Output Vital Signs (last 24 hours): Temp Pulse Resp BP Pulse Ox 98.4 F 112 H 18 163/77 H 97 07/02/18 07:49 07/02/18 08:43 07/02/18 08:46 07/02/18 08:46 07/02/18 07:49 - Medications Medications: Current Medications Acetaminophen (Tylenol 325mg Tab) 650 mg PO Q6 PRN PRN Reason: Pain, Mild (1-3) Last Admin: 07/01/18 21:35 Dose: 650 mg Clonazepam (Klonopin) 0.25 mg PO Q12@1000,2200 [facility] Last Admin: 07/01/18 21:29 Dose: 0.25 mg Diltiazem HCl (Cardizem) 30 mg PO QID [facility] Last Admin: 07/02/18 08:46 Dose: 30 mg Docusate Sodium (Colace) 100 mg PO BID [facility] Last Admin: 07/02/18 08:43 Dose: 100 mg Enoxaparin Sodium (Lovenox) 40 mg SC Q24H [facility]; Protocol Last Admin: 06/29/18 17:02 Dose: 40 mg Escitalopram Oxalate (Lexapro) 5 mg PO HS [facility] Last Admin: 07/01/18 21:29 Dose: 5 mg Famotidine (Pepcid) 20 mg PO BID [facility] Last Admin: 07/02/18 08:45 Dose: 20 mg Finasteride (Proscar) 5 mg PO DAILY [facility] Last Admin: 07/02/18 08:43 Dose: 5 mg Ceftriaxone Sodium 1 gm/ (Sodium Chloride) 100 mls @ 100 mls/hr IVPB DAILY [facility]; Protocol Last Admin: 07/02/18 08:47 Dose: 100 mls/hr Vancomycin HCl 1 gm/ Sodium (Chloride) 250 mls @ 166.667 mls/hr IVPB Q12 [facility]; Protocol Last Admin: 07/01/18 20:25 Dose: 166.667 mls/hr Levalbuterol HCl (Xopenex) 1.25 mg INH RQ8 [facility] Last Admin: 07/02/18 07:49 Dose: 1.25 mg Metoprolol Succinate (Toprol Xl) 50 mg PO DAILY [facility] Last Admin: 07/02/18 08:43 Dose: 50 mg Morphine Sulfate (Morphine) 2 mg IVP Q4 PRN PRN Reason: Pain, severe (8-10) Last Admin: 06/28/18 22:46 Dose: 2 mg Fluticasone/Salmeterol (Advair Diskus 100/50) 1 puff IH RBID [facility] Last Admin: 07/02/18 08:56 Dose: 1 puff Tamsulosin HCl (Flomax) 0.4 mg PO BID [facility] Last Admin: 07/02/18 08:45 Dose: 0.4 mg - Labs Labs: 07/02/18 04:40 07/02/18 04:40 PT 13.9 Seconds (9.8-13.1) H 06/28/18 08:40 INR 1.2 06/28/18 08:40 APTT 27.1 Seconds (25.6-37.1) 06/27/18 11:38 - Extremities Exam Additional comments: RLE: Dressings with moderate serosang drainage Incision with no active drainage (improved from yesterday), intact with jhoan diffuse ecchymosis continues to improve sensation intact SP/DP/TN motor intact EHL/FHL/TA/G pedal pulse intact calves soft NT b/l Assessment and Plan (1) Intertrochanteric fracture of right hip Assessment & Plan: POD#4 s/p R hip ORIF with IM nail -Wound drainage improving. Wet to dry betadine dressings changed. 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 bedrest -IV abx for infection ppx, Dr. Puentes consulted for IV abx coverage -hold PT/OT -hold Lovenox, continue b/l SCD/compression stockings -above d/w Dr. Norris in agreement Status: Acute
--- NOTE | 2018-07-02 18:01 | CP.PCM.PN ---
Subjective - Date & Time of Evaluation Date of Evaluation: 07/02/18 Time of Evaluation: 18:00 - Subjective Subjective: I D NOTE AWAITING CULTURE RESULTS ON VANCOMYCIN HAVE ADDED MEROPENEM FULL CONSULT TO FOLLOW Objective - Vital Signs/Intake and Output Vital Signs (last 24 hours): Temp Pulse Resp BP Pulse Ox 98.0 F 94 H 20 128/78 94 L 07/02/18 15:42 07/02/18 16:29 07/02/18 15:42 07/02/18 16:29 07/02/18 15:42 Intake and Output: 07/02/18 07/02/18 06:59 18:59 Output Total 1200 Balance -1200 - Medications Medications: Current Medications Acetaminophen (Tylenol 325mg Tab) 650 mg PO Q6 PRN PRN Reason: Pain, Mild (1-3) Last Admin: 07/01/18 21:35 Dose: 650 mg Clonazepam (Klonopin) 0.25 mg PO Q12@1000,2200 [facility] Last Admin: 07/02/18 11:13 Dose: Not Given Diltiazem HCl (Cardizem) 30 mg PO QID [facility] Last Admin: 07/02/18 16:29 Dose: 30 mg Docusate Sodium (Colace) 100 mg PO BID [facility] Last Admin: 07/02/18 16:40 Dose: 100 mg Enoxaparin Sodium (Lovenox) 40 mg SC Q24H [facility]; Protocol Last Admin: 06/29/18 17:02 Dose: 40 mg Escitalopram Oxalate (Lexapro) 5 mg PO HS [facility] Last Admin: 07/01/18 21:29 Dose: 5 mg Famotidine (Pepcid) 20 mg PO BID [facility] Last Admin: 07/02/18 16:42 Dose: 20 mg Finasteride (Proscar) 5 mg PO DAILY [facility] Last Admin: 07/02/18 08:43 Dose: 5 mg Ceftriaxone Sodium 1 gm/ (Sodium Chloride) 100 mls @ 100 mls/hr IVPB DAILY [facility]; Protocol Last Admin: 07/02/18 08:47 Dose: 100 mls/hr Vancomycin HCl 1 gm/ Sodium (Chloride) 250 mls @ 166.667 mls/hr IVPB Q12 [facility]; Protocol Last Admin: 07/02/18 10:48 Dose: 166.667 mls/hr Levalbuterol HCl (Xopenex) 1.25 mg INH RQ8 [facility] Last Admin: 07/02/18 15:15 Dose: 1.25 mg Metoprolol Succinate (Toprol Xl) 50 mg PO DAILY [facility] Last Admin: 07/02/18 08:43 Dose: 50 mg Morphine Sulfate (Morphine) 2 mg IVP Q4 PRN PRN Reason: Pain, severe (8-10) Last Admin: 06/28/18 22:46 Dose: 2 mg Fluticasone/Salmeterol (Advair Diskus 100/50) 1 puff IH RBID [facility] Last Admin: 07/02/18 08:56 Dose: 1 puff Tamsulosin HCl (Flomax) 0.4 mg PO BID [facility] Last Admin: 07/02/18 16:41 Dose: 0.4 mg - Labs Labs: 07/02/18 04:40 07/02/18 04:40 PT 13.9 Seconds (9.8-13.1) H 06/28/18 08:40 INR 1.2 06/28/18 08:40 APTT 27.1 Seconds (25.6-37.1) 06/27/18 11:38
[2018-07-02] MEDS: Meropenem 1 GM in Sodium Chloride 0.9% 100 ML IVPB SCH (21:24)
[2018-07-03 06:31] LABS: BASO % 0.4 % (0.0-2.0); EOS # 0.4 K/uL (0.0-0.7); EOS % 4.8 % (0.0-4.0); HEMOGLOBIN 10.1 g/dL (12.0-18.0); LYMPH # 1.3 K/uL (1.0-4.3); LYMPH % 14.7 % (20.0-40.0); MEAN CELL VOLUME 88.9 fl (80.0-94.0); MEAN CORPUSCULAR HEMOGLOBIN 30.2 pg (27.0-31.0); MEAN CORPUSCULAR HGB CONC 33.9 g/dL (33.0-37.0); MONO # 1.1 K/uL (0.0-0.8); MONO % 12.9 % (0.0-10.0); NEUT # 5.8 K/uL (1.8-7.0); NEUT % 67.2 % (50.0-75.0); RBC 3.37 Mil/uL (4.40-5.90); RED CELL DISTRIBUTION WIDTH 13.2 % (11.5-14.5); WHITE BLOOD COUNT 8.7 K/uL (4.8-10.8)
[2018-07-03 06:43] LABS: BLOOD UREA NITROGEN 13 mg/dl (9-20); CALCIUM 7.7 mg/dL (8.4-10.2); GFR NON-AFRICAN AMERICAN > 60
[2018-07-03] MEDS: Levalbuterol 1.25 MG/3 ML Inhal Soln UD INH SCH ×3 (07:06→23:51)
[2018-07-03] MEDS: Metoprolol Succinate 50 mg XL Tab PO SCH (08:51)
[2018-07-03] MEDS: Fluticasone-Salmeterol 100-50mcg Diskus IH SCH ×2 (08:53→20:30)
[2018-07-03] MEDS: Meropenem 1 GM in Sodium Chloride 0.9% 100 ML IVPB SCH ×2 (08:55→21:08)
--- NOTE | 2018-07-03 09:34 | CP.PCM.PN ---
Subjective - Date & Time of Evaluation Date of Evaluation: 07/03/18 Time of Evaluation: 07:15 - Subjective Subjective: Pt seen and examined at bedside. Family at bedside. Denies acute overnight events. Cobb in place. Objective - Vital Signs/Intake and Output Vital Signs (last 24 hours): Temp Pulse Resp BP Pulse Ox 97.5 F L 126 H 18 120/71 98 07/03/18 08:07 07/03/18 08:52 07/03/18 08:52 07/03/18 08:52 07/03/18 08:52 Intake and Output: 07/03/18 07/03/18 06:59 18:59 Intake Total 700 Output Total 1200 Balance -500 - Medications Medications: Current Medications Acetaminophen (Tylenol 325mg Tab) 650 mg PO Q6 PRN PRN Reason: Pain, Mild (1-3) Last Admin: 07/01/18 21:35 Dose: 650 mg Clonazepam (Klonopin) 0.25 mg PO Q12@1000,2200 [facility] Last Admin: 07/02/18 21:29 Dose: 0.25 mg Diltiazem HCl (Cardizem) 30 mg PO QID [facility] Last Admin: 07/03/18 08:52 Dose: 30 mg Docusate Sodium (Colace) 100 mg PO BID [facility] Last Admin: 07/03/18 08:53 Dose: 100 mg Enoxaparin Sodium (Lovenox) 40 mg SC Q24H [facility]; Protocol Last Admin: 06/29/18 17:02 Dose: 40 mg Escitalopram Oxalate (Lexapro) 5 mg PO HS [facility] Last Admin: 07/02/18 21:26 Dose: 5 mg Famotidine (Pepcid) 20 mg PO BID [facility] Last Admin: 07/03/18 08:54 Dose: 20 mg Finasteride (Proscar) 5 mg PO DAILY [facility] Last Admin: 07/03/18 08:54 Dose: 5 mg Meropenem 1 gm/ Sodium (Chloride) 100 mls @ 100 mls/hr IVPB Q12 [facility]; Protocol Last Admin: 07/03/18 08:55 Dose: 100 mls/hr Vancomycin HCl 1 gm/ Sodium (Chloride) 250 mls @ 166.667 mls/hr IVPB Q12 [facility]; Protocol Last Admin: 07/03/18 08:58 Dose: 166.667 mls/hr Levalbuterol HCl (Xopenex) 1.25 mg INH RQ8 [facility] Last Admin: 07/03/18 07:06 Dose: 1.25 mg Metoprolol Succinate (Toprol Xl) 50 mg PO DAILY [facility] Last Admin: 07/03/18 08:51 Dose: 50 mg Morphine Sulfate (Morphine) 2 mg IVP Q4 PRN PRN Reason: Pain, severe (8-10) Last Admin: 06/28/18 22:46 Dose: 2 mg Fluticasone/Salmeterol (Advair Diskus 100/50) 1 puff IH RBID [facility] Last Admin: 07/03/18 08:53 Dose: 1 puff Tamsulosin HCl (Flomax) 0.4 mg PO BID [facility] Last Admin: 07/03/18 08:54 Dose: 0.4 mg - Labs Labs: 07/03/18 05:30 07/03/18 05:30 PT 13.9 Seconds (9.8-13.1) H 06/28/18 08:40 INR 1.2 06/28/18 08:40 APTT 27.1 Seconds (25.6-37.1) 06/27/18 11:38 - Constitutional Appears: No Acute Distress - Eye Exam Eye Exam: EOMI - ENT Exam ENT Exam: Mucous Membranes Moist - Respiratory Exam Respiratory Exam: Clear to Ausculation Bilateral, NORMAL BREATHING PATTERN. absent: Wheezes - Cardiovascular Exam Cardiovascular Exam: +S1, +S2 - GI/Abdominal Exam GI & Abdominal Exam: Soft, Normal Bowel Sounds. absent: Tenderness - Neurological Exam Neurological Exam: Alert, Awake, CN II-XII Intact, Oriented x3 - Psychiatric Exam Psychiatric exam: Normal Affect, Normal Mood Assessment and Plan - Assessment and Plan (Free Text) Assessment: 88 y/o male with hx of HTN, HLD, Anxiety, and Depression brought to ED by EMS after a syncopal episode found to be in Afib with RVR with concomittant intertrochanteric fracture. Plan: Acute displaced R. Trochanteric Fx -POD 5: R hip ORIF w/ IM nail -Ortho: Dr. Norris -Wound draining: Per ortho: hold lovenox and PT/OT, abx coverage -c/w Vanco 1 gm BID -Vanc trough: 8.4 -ID: Dr. Manocchio: start meropenem -c/w pain management -PT/OT: held -Incentive spirometry q1h -Dr. Mac: Mild wheezing: -none on today's exam -Xopenex RQID -Advair RBID -continue to monitor Urinary Retention/Incontinence -He reports hx of "Prostate problems" -Proscar, Flomax (per family: increased to BID) -hx of Intermittent catheterization resulting in 800 cc -Cobb inserted today -Urology: Dr. Bautista: Voiding trial on Thursday -Continue to monitor for retention Iron deficiency anemia -Transfused 2 units -follow up H/H: .05/25.9 -Venofer given Syncope -Likely secondary to Afib/Vaso-vagal -Cardiology: Dr. Velasquez; ECHO reviewed. continue rx; -Neurology: Dr. Castanon: EEG Normal awake and drowsy EEG -Seizure and fall precautions New onset Afib -Afib w/ RVR on presentation -Cardiac monitoring -Rate and rhythm controlled after Cardizem 10mg IV and 30 po once in ED -Will continue with Cardizem 30 QID po and Toprol; Monitor BP closely -Cardiology consult: Dr. Velasquez HTN -Metoprolol -Monitor BP Azotemia -Mild dehydration -hx: HypoNatremia and hypochloremia; likely contraction metabolic alkalosis Leukocytes w/ neutrophilic predominance -Unclear if pt has underlying infectious process; possible UTI -d/c Zosyn -rocephin 1 g daily; started on vancomycin 1gm q12 Cholelithiasis: -Surgery consulted: no surgery indicated; f/u outpatient Non-displaced Fx L5 spinous process -Neurosurgery: No surgery at this time Aneurysm ascending aorta (5.4cm) -No sign of rupture or bleed, hemodynamically stable, no urgent management needed -Given significant size, may need endovascular repair in future Anxiety -Klonipin prn; Tapered Depression: Psych: Dr. Hebert Lexapro and taper klonopin DVT ppx -SCDs + stockings -hold lovenox per ortho 2/2 wound draining -High fall risk -PT/OT: held per ortho Diet -heart healthy DNR/DNI: Surrogate decision maker: Evens, son Case and plan d/w Dr. Jassi Villafana MD PGY2
--- NOTE | 2018-07-03 11:22 | CP.PCM.PN ---
Subjective - Date & Time of Evaluation Date of Evaluation: 07/03/18 Time of Evaluation: 11:17 - Subjective Subjective: UROLOGY spoke with pt's son who filled me in on his dad's urology hx. He has had issues withndifficulty voidng for years and he has been on increasing dose of flomax to maintain flow.Now that he is mpost op hip replacement he has had r ecurrent retention while on flomax BID and finasteride once daily. Next step is surgical approach. Given recent hip surgery this option will not be immediately avail;able. Will plan to give voiding trial on Thursday Objective - Vital Signs/Intake and Output Vital Signs (last 24 hours): Temp Pulse Resp BP Pulse Ox 97.5 F L 126 H 18 120/71 98 07/03/18 08:07 07/03/18 08:52 07/03/18 08:52 07/03/18 08:52 07/03/18 08:52 Intake and Output: 07/03/18 07/03/18 06:59 18:59 Intake Total 700 Output Total 1200 Balance -500 - Medications Medications: Current Medications Acetaminophen (Tylenol 325mg Tab) 650 mg PO Q6 PRN PRN Reason: Pain, Mild (1-3) Last Admin: 07/01/18 21:35 Dose: 650 mg Clonazepam (Klonopin) 0.25 mg PO Q12@1000,2200 [facility] Last Admin: 07/02/18 21:29 Dose: 0.25 mg Diltiazem HCl (Cardizem) 30 mg PO QID [facility] Last Admin: 07/03/18 08:52 Dose: 30 mg Docusate Sodium (Colace) 100 mg PO BID [facility] Last Admin: 07/03/18 08:53 Dose: 100 mg Enoxaparin Sodium (Lovenox) 40 mg SC Q24H [facility]; Protocol Last Admin: 06/29/18 17:02 Dose: 40 mg Escitalopram Oxalate (Lexapro) 5 mg PO HS [facility] Last Admin: 07/02/18 21:26 Dose: 5 mg Famotidine (Pepcid) 20 mg PO BID [facility] Last Admin: 07/03/18 08:54 Dose: 20 mg Finasteride (Proscar) 5 mg PO DAILY [facility] Last Admin: 07/03/18 08:54 Dose: 5 mg Meropenem 1 gm/ Sodium ([facility]) 100 mls @ 100 mls/hr IVPB Q12 [facility]; Protocol Last Admin: 07/03/18 08:55 Dose: 100 mls/hr Vancomycin HCl 1 gm/ Sodium (Chloride) 250 mls @ 166.667 mls/hr IVPB Q12 [facility]; Protocol Last Admin: 07/03/18 08:58 Dose: 166.667 mls/hr Levalbuterol HCl (Xopenex) 1.25 mg INH RQ8 [facility] Last Admin: 07/03/18 07:06 Dose: 1.25 mg Metoprolol Succinate (Toprol Xl) 50 mg PO DAILY [facility] Last Admin: 07/03/18 08:51 Dose: 50 mg Morphine Sulfate (Morphine) 2 mg IVP Q4 PRN PRN Reason: Pain, severe (8-10) Last Admin: 06/28/18 22:46 Dose: 2 mg Fluticasone/Salmeterol (Advair Diskus 100/50) 1 puff IH RBID [facility] Last Admin: 07/03/18 08:53 Dose: 1 puff Tamsulosin HCl (Flomax) 0.4 mg PO BID [facility] Last Admin: 07/03/18 08:54 Dose: 0.4 mg - Labs Labs: 07/03/18 05:30 07/03/18 05:30 PT 13.9 Seconds (9.8-13.1) H 06/28/18 08:40 INR 1.2 06/28/18 08:40 APTT 27.1 Seconds (25.6-37.1) 06/27/18 11:38
[2018-07-03] MEDS ORDERED: Lactulose 10 gm/15 ml Syrup PO PRN (16:04)
[2018-07-03] MEDS: Sodium Chloride 0.9% 1,000 ML IV SCH (18:00)
--- NOTE | 2018-07-03 20:22 | CON ---
DATE: 07/02/2018 HISTORY OF PRESENT ILLNESS: This is an 88-year-old male patient who I was called to evaluate because of recurrent urinary retention. The patient's history is that he had symptomatic prostatism for a number of years and for at least the past four years he has been on alpha-blockers and over the more recent year, he has had an increase in dose to two pills daily of tamsulosin. The patient came to the hospital because he fractured his hip. He had a hip replacement; following that he has been unable to void. Multiple voiding attempts have been tried and he fails with significant amount of residual urine and so the catheter currently is indwelling. The patient has a urine culture done on the 06/24/2018 showing no growth. Lab[facility], his BUN and creatinine have been 13 and 0.7 on average. Sugar is slightly high at 124. Otherwise, no other significant finding. He does have a history of having elevated PSA but the recommendation for the patient by his other urologist was to monitor it and not act upon it at this time. On physical examination, the abdomen is soft but he has a full abdomen. The urine is coming clear through the Cobb catheter. There is no flank pain noted. The patient is sort of restricted to bed because of his hip surgery so it will be difficult for him even to attempt voiding in this condition. I did speak with the family member, the son, and went over a plan and we will try to give the patient more successive voiding trials while on this current regimen of medication and if he continues to fail, eventually we will keep the catheter in and be looking for a surgical option to reduce prostate size, perhaps via a laser resection of the prostate. The patient and the patient's son is in agreement with this plan. Our first attempt will happen on Thursday to remove the Cobb catheter and give a voiding trial and proceed from there and see how the patient responds. Ingrid Bautista MD
[2018-07-04 06:11] LABS: HEMOGLOBIN 10.1 g/dL (12.0-18.0); MEAN CELL VOLUME 89.2 fl (80.0-94.0); MEAN CORPUSCULAR HEMOGLOBIN 30.6 pg (27.0-31.0); MEAN CORPUSCULAR HGB CONC 34.3 g/dL (33.0-37.0); RBC 3.3 Mil/uL (4.40-5.90); RED CELL DISTRIBUTION WIDTH 13.3 % (11.5-14.5); WHITE BLOOD COUNT 9.3 K/uL (4.8-10.8)
[2018-07-04 06:19] LABS: BLOOD UREA NITROGEN 16 mg/dl (9-20); CALCIUM 7.9 mg/dL (8.4-10.2); GFR NON-AFRICAN AMERICAN > 60
--- NOTE | 2018-07-04 08:05 | CP.PCM.PN ---
Subjective - Date & Time of Evaluation Date of Evaluation: 07/04/18 Time of Evaluation: 08:40 - Subjective Subjective: Patient seen and examined, in NAD. No overnight changes. Patient denies pain at present, JAMES, CP, SOB. Patient is afebrile. Objective - Vital Signs/Intake and Output Vital Signs (last 24 hours): Temp Pulse Resp BP Pulse Ox 98.3 F 108 H 18 130/71 95 07/04/18 05:28 07/04/18 05:28 07/04/18 05:28 07/04/18 05:28 07/04/18 05:28 Intake and Output: 07/04/18 07/04/18 06:59 18:59 Intake Total Output Total Balance - Medications Medications: Current Medications Acetaminophen (Tylenol 325mg Tab) 650 mg PO Q6 PRN PRN Reason: Pain, Mild (1-3) Last Admin: 07/01/18 21:35 Dose: 650 mg Clonazepam (Klonopin) 0.25 mg PO Q12@1000,2200 [facility] Last Admin: 07/03/18 21:06 Dose: 0.25 mg Diltiazem HCl (Cardizem) 30 mg PO QID [facility] Last Admin: 07/03/18 21:07 Dose: 30 mg Docusate Sodium (Colace) 100 mg PO BID [facility] Last Admin: 07/03/18 17:06 Dose: 100 mg Enoxaparin Sodium (Lovenox) 40 mg SC Q24H [facility]; Protocol Last Admin: 06/29/18 17:02 Dose: 40 mg Escitalopram Oxalate (Lexapro) 5 mg PO HS [facility] Last Admin: 07/03/18 21:07 Dose: 5 mg Famotidine (Pepcid) 20 mg PO BID [facility] Last Admin: 07/03/18 17:07 Dose: 20 mg Finasteride (Proscar) 5 mg PO DAILY [facility] Last Admin: 07/03/18 08:54 Dose: 5 mg Meropenem 1 gm/ Sodium (Chloride) 100 mls @ 100 mls/hr IVPB Q12 [facility]; Protocol Last Admin: 07/03/18 21:08 Dose: 100 mls/hr Vancomycin HCl 1 gm/ Sodium (Chloride) 250 mls @ 166.667 mls/hr IVPB Q12 [facility]; Protocol Last Admin: 07/03/18 21:07 Dose: 166.667 mls/hr Sodium Chloride (Sodium Chloride 0.9%) 1,000 mls @ 60 mls/hr IV .[id number] [facility] Stop: 07/04/18 17:21 Last Admin: 07/03/18 18:00 Dose: 60 mls/hr Lactulose (Enulose) 10 gm PO DAILY PRN PRN Reason: Constipation Last Admin: 07/03/18 18:00 Dose: 10 gm Levalbuterol HCl (Xopenex) 1.25 mg INH RQ8 [facility] Last Admin: 07/03/18 23:51 Dose: 1.25 mg Metoprolol Succinate (Toprol Xl) 50 mg PO DAILY [facility] Last Admin: 07/03/18 08:51 Dose: 50 mg Morphine Sulfate (Morphine) 2 mg IVP Q4 PRN PRN Reason: Pain, severe (8-10) Last Admin: 06/28/18 22:46 Dose: 2 mg Fluticasone/Salmeterol (Advair Diskus 100/50) 1 puff IH RBID [facility] Last Admin: 07/03/18 20:30 Dose: 1 puff Tamsulosin HCl (Flomax) 0.4 mg PO BID [facility] Last Admin: 07/03/18 17:07 Dose: 0.4 mg - Labs Labs: 07/04/18 04:30 07/04/18 04:30 PT 13.9 Seconds (9.8-13.1) H 06/28/18 08:40 INR 1.2 06/28/18 08:40 APTT 27.1 Seconds (25.6-37.1) 06/27/18 11:38 - Constitutional Appears: No Acute Distress - Head Exam Head Exam: ATRAUMATIC, NORMOCEPHALIC - Eye Exam Eye Exam: EOMI - ENT Exam ENT Exam: Mucous Membranes Moist - Neck Exam Neck Exam: Full ROM - Respiratory Exam Respiratory Exam: Clear to Ausculation Bilateral - Cardiovascular Exam Cardiovascular Exam: Tachycardia, REGULAR RHYTHM, +S1, +S2 - GI/Abdominal Exam GI & Abdominal Exam: Soft. absent: Tenderness - Extremities Exam Additional comments: PAtient s/p 6 days ORIF, dressing applied to R hip is noted dry and intact, Right hip swelling and ecchimotic area noted. - Neurological Exam Neurological Exam: Alert, Awake - Psychiatric Exam Psychiatric exam: Normal Affect - Skin Skin Exam: Dry, Warm Assessment and Plan - Assessment and Plan (Free Text) Assessment: 88 y/o male with hx of HTN, HLD, Anxiety, and Depression brought to ED by EMS after a syncopal episode found to be in Afib with RVR with concomittant intertrochanteric fracture and L5 transverse process fracture. Plan: Acute displaced Traumatic R. Trochanteric Fx -POD 6: R hip ORIF w/ IM nail (ORIF 06/28/18) -Ortho: Dr. Norris -Wound draining: Per ortho: hold lovenox and PT/OT, abx coverage -c/w Vanco 1 gm BID -Vanc trough: 8.4 on 07/01/18 -ID: Dr. Puentes: on meropenem -c/w pain management -PT/OT: held -Incentive spirometry q1h Mild wheezing: -No noted on exam -Xopenex RQID -Advair RBID -continue to monitor Urinary Retention/Incontinence -He reports hx of "Prostate problems" -Proscar, Flomax (per family: increased to BID) -hx of Intermittent catheterization resulting in 800 cc -Cobb cath in place, plan to DC Thursday -Urology: Dr. Bautista: Voiding trial on Thursday -Continue to monitor for retention Iron deficiency anemia -Transfused 2 units on 06/27/18 -follow up H/H: 10.1/29.5 -Venofer given Syncope -Likely secondary to Afib/Vaso-vagal -Cardiology: Dr. Velasquez; ECHO reviewed. continue rx; -Neurology: Dr. Castanon: EEG Normal awake and drowsy EEG -Seizure and fall precautions New onset Afib -Afib w/ RVR on presentation, back in SR at present, sinus tach noted 110's -Cardiac monitoring -Rate and rhythm controlled after Cardizem 10mg IV and 30 po once in ED -Will continue with Cardizem 30 QID po and Metoprolol Scc 50 QD; Monitor BP closely -Cardiology consult: Dr. Velasquez, recomms appreciated HTN -controlled at goal -Metoprolol Succ 50 PO QD -Monitor BP Hyponatremia -Azotemia resolved, -now with mild Hyponatremia Na 129, unclear etiology -?Mild dehydration: hx: HypoNatremia and hypochloremia; likely contraction metabolic alkalosis -C/w NS @60 ml/hr -Urine osmolality, F/u Leukocytes w/ neutrophilic predominance -Unclear if pt has underlying infectious process; possible UTI -d/c Zosyn -rocephin 1 g daily; started on vancomycin 1gm q12 Cholelithiasis: -Surgery consulted: no surgery indicated; f/u outpatient Non-displaced Fx L5 spinous process -Neurosurgery: No surgery at this time -PT and pain management Aneurysm ascending aorta (5.4cm) -No sign of rupture or bleed, hemodynamically stable, no urgent management needed -Given significant size, may need endovascular repair in future Anxiety/Depression: -resolved, at present AAOx3 -Psych consulted Psych: Dr. Hebert Lexapro and taper klonopin -ranjana Clonopin slowly to d/c . -Continue Lexapro HS at low dose 5 mg from 10 DVT ppx -SCDs + stockings -hold lovenox per ortho 2/2 wound draining -High fall risk -PT/OT: held per ortho Diet -heart healthy DNR/DNI: Surrogate decision maker: matias Horner
[2018-07-04] MEDS: Fluticasone-Salmeterol 100-50mcg Diskus IH SCH ×2 (09:43→20:29)
[2018-07-04] MEDS: Sodium Chloride 0.9% 1,000 ML IV SCH (09:51)
[2018-07-04] MEDS: Metoprolol Succinate 50 mg XL Tab PO SCH (09:52)
[2018-07-04] MEDS: Meropenem 1 GM in Sodium Chloride 0.9% 100 ML IVPB SCH ×2 (10:48→20:30)
[2018-07-04] MEDS: Levalbuterol 1.25 MG/3 ML Inhal Soln UD INH SCH ×3 (11:08→23:44)
[2018-07-04 11:35] LABS: URINE BILIRUBIN NEGATIVE (NEGATIVE); URINE BLOOD SMALL (NEGATIVE); URINE CLARITY CLEAR (Clear); URINE COLOR YELLOW (YELLOW); URINE GLUCOSE (UA) NEG (NEGATIVE); URINE LEUKOCYTE ESTERASE NEG Leu/uL (Negative); URINE PROTEIN 30 mg/dL (NEGATIVE)
[2018-07-05 05:44] LABS: HEMOGLOBIN 9.9 g/dL (12.0-18.0); MEAN CELL VOLUME 90.3 fl (80.0-94.0); MEAN CORPUSCULAR HEMOGLOBIN 30.9 pg (27.0-31.0); MEAN CORPUSCULAR HGB CONC 34.2 g/dL (33.0-37.0); RBC 3.2 Mil/uL (4.40-5.90); RED CELL DISTRIBUTION WIDTH 13.3 % (11.5-14.5); WHITE BLOOD COUNT 9.6 K/uL (4.8-10.8)
[2018-07-05 05:45] LABS: BLOOD UREA NITROGEN 14 mg/dl (9-20); CALCIUM 7.8 mg/dL (8.4-10.2); GFR NON-AFRICAN AMERICAN > 60
--- NOTE | 2018-07-05 06:52 | CP.PCM.PN ---
Subjective - Date & Time of Evaluation Date of Evaluation: 07/05/18 Time of Evaluation: 06:52 - Subjective Subjective: Pt seen and examined at bedside this am. denies acute overnight events. Wound dressing changed per ortho. Tolerating PO diet. pfeiffer in place Objective - Vital Signs/Intake and Output Vital Signs (last 24 hours): Temp Pulse Resp BP Pulse Ox 98.3 F 91 H 20 137/82 96 07/05/18 04:59 07/05/18 04:59 07/05/18 04:59 07/05/18 04:59 07/05/18 04:59 Intake and Output: 07/04/18 07/05/18 18:59 06:59 Intake Total 1200 Output Total 1300 1300 Balance -1300 -100 - Medications Medications: Current Medications Acetaminophen (Tylenol 325mg Tab) 650 mg PO Q6 PRN PRN Reason: Pain, Mild (1-3) Last Admin: 07/01/18 21:35 Dose: 650 mg Clonazepam (Klonopin) 0.25 mg PO Q12@1000,2200 [facility] Last Admin: 07/04/18 22:00 Dose: 0.25 mg Diltiazem HCl (Cardizem) 30 mg PO QID [facility] Last Admin: 07/04/18 21:53 Dose: 30 mg Docusate Sodium (Colace) 100 mg PO BID [facility] Last Admin: 07/04/18 17:56 Dose: 100 mg Enoxaparin Sodium (Lovenox) 40 mg SC Q24H [facility]; Protocol Last Admin: 06/29/18 17:02 Dose: 40 mg Escitalopram Oxalate (Lexapro) 5 mg PO HS [facility] Last Admin: 07/04/18 21:53 Dose: 5 mg Famotidine (Pepcid) 20 mg PO BID [facility] Last Admin: 07/04/18 17:56 Dose: 20 mg Finasteride (Proscar) 5 mg PO DAILY [facility] Last Admin: 07/04/18 09:50 Dose: 5 mg Meropenem 1 gm/ Sodium (Chloride) 100 mls @ 100 mls/hr IVPB Q12 [facility]; Protocol Last Admin: 07/04/18 20:30 Dose: 100 mls/hr Lactulose (Enulose) 10 gm PO DAILY PRN PRN Reason: Constipation Last Admin: 07/03/18 18:00 Dose: 10 gm Levalbuterol HCl (Xopenex) 1.25 mg INH RQ8 [facility] Last Admin: 07/04/18 23:44 Dose: 1.25 mg Metoprolol Succinate (Toprol Xl) 50 mg PO DAILY [facility] Last Admin: 07/04/18 09:52 Dose: 50 mg Morphine Sulfate (Morphine) 2 mg IVP Q4 PRN PRN Reason: Pain, severe (8-10) Last Admin: 07/04/18 15:42 Dose: 2 mg Fluticasone/Salmeterol (Advair Diskus 100/50) 1 puff IH RBID [facility] Last Admin: 07/04/18 20:29 Dose: 1 puff Tamsulosin HCl (Flomax) 0.4 mg PO BID [facility] Last Admin: 07/04/18 17:56 Dose: 0.4 mg - Labs Labs: 07/05/18 04:45 07/05/18 04:45 PT 13.9 Seconds (9.8-13.1) H 06/28/18 08:40 INR 1.2 06/28/18 08:40 APTT 27.1 Seconds (25.6-37.1) 06/27/18 11:38 - Constitutional Appears: Well, No Acute Distress - Eye Exam Eye Exam: EOMI - ENT Exam ENT Exam: Mucous Membranes Moist - Respiratory Exam Respiratory Exam: Clear to Ausculation Bilateral, NORMAL BREATHING PATTERN. absent: Wheezes - Cardiovascular Exam Cardiovascular Exam: +S1, +S2 - GI/Abdominal Exam GI & Abdominal Exam: Soft, Normal Bowel Sounds. absent: Tenderness - Extremities Exam Additional comments: L forearm: incision site healing well. Scar. dry and intact R thigh with dressing: C/D. ecchymosis posterior thigh - Neurological Exam Neurological Exam: Abnormal Gait (2/2 R hip surgery), Alert, Awake - Psychiatric Exam Psychiatric exam: Normal Affect, Normal Mood Assessment and Plan - Assessment and Plan (Free Text) Assessment: 88 y/o male with hx of HTN, HLD, Anxiety, and Depression brought to ED by EMS after a syncopal episode found to be in Afib with RVR with concomittant intertrochanteric fracture and L5 transverse process fracture. Plan: Acute displaced Traumatic R. Trochanteric Fx -POD 7: R hip ORIF w/ IM nail (ORIF 06/28/18) -Ortho: Dr. Norris -Wound draining: Per ortho: start Eliquis and PT/OT, abx coverage; stable for DC to [facility]; f/u in 7-10 days -c/w Vanco 1 gm BID -Vanc trough: 8.4 on 07/01/18 -ID: Dr. Puentes: on meropenem + Vanc -c/w pain management -PT/OT: held -Incentive spirometry q1h Mild wheezing: -No noted on exam -Xopenex RQID -Advair RBID -continue to monitor Urinary Retention/Incontinence -He reports hx of "Prostate problems" -Proscar, Flomax (per family: increased to BID) -Pfeiffer cath in place -Urology: Dr. Bautista: Bladder training today Iron deficiency anemia -Transfused 2 units on 06/27/18 -follow up H/H: 9.9/28.9 -Venofer given Syncope -Likely secondary to Afib/Vaso-vagal -Cardiology: Dr. Velasquez; ECHO reviewed. continue rx; -Neurology: Dr. Castanon: EEG Normal awake and drowsy EEG -Seizure and fall precautions New onset Afib -Afib w/ RVR on presentation, back in SR at present, sinus tach noted 110's -Cardiac monitoring -Rate and rhythm controlled after Cardizem 10mg IV and 30 po once in ED -Will continue with Cardizem 30 QID po and Metoprolol Scc 50 QD; Monitor BP closely -Cardiology consult: Dr. Velasquez, recomms appreciated HTN -controlled at goal -Metoprolol Succ 50 PO QD -Monitor BP Hyponatremia -Azotemia resolved, -now with mild Hyponatremia Na 128, unclear etiology -Mild dehydration: hx: HypoNatremia and hypochloremia; likely contraction metabolic alkalosis -Urine osmolality: wnl; euvolemic Leukocytes w/ neutrophilic predominance -Unclear if pt has underlying infectious process; possible UTI -d/c Zosyn -rocephin 1 g daily; vancomycin 1gm q12 Cholelithiasis -Surgery consulted: no surgery indicated; f/u outpatient Non-displaced Fx L5 spinous process -Neurosurgery: No surgery at this time -PT and pain management Aneurysm ascending aorta (5.4cm) -No sign of rupture or bleed, hemodynamically stable, no urgent management needed -Given significant size, may need endovascular repair in future Delirium: Anxiety/Depression -resolved, at present AAOx3 -Psych consulted Psych: Dr. Anup Bautista and taper klonopin -ranjana Clonopin slowly to d/c . -Continue Lexapro HS at low dose 5 mg from 10 DVT ppx -SCDs + stockings -Eliquis -High fall risk -PT/OT: held per ortho Diet -regular DNR/DNI: Surrogate decision maker: matias Horner
[2018-07-05] MEDS: Levalbuterol 1.25 MG/3 ML Inhal Soln UD INH SCH ×2 (07:37→15:41)
[2018-07-05] MEDS: Fluticasone-Salmeterol 100-50mcg Diskus IH SCH (08:52)
[2018-07-05] MEDS: Meropenem 1 GM in Sodium Chloride 0.9% 100 ML IVPB SCH (08:54)
[2018-07-05] MEDS: Metoprolol Succinate 50 mg XL Tab PO SCH (08:55)
--- NOTE | 2018-07-05 08:56 | CP.PCM.PN ---
Subjective - Date & Time of Evaluation Date of Evaluation: 07/05/18 Time of Evaluation: 08:00 - Subjective Subjective: Patient seen and examined at bedside comfortable. Pain is minimal this AM. Tolerating PT well. Tachycardic this AM but denies dizziness/SOB/CP. No other complaints. Objective - Vital Signs/Intake and Output Vital Signs (last 24 hours): Temp Pulse Resp BP Pulse Ox 98.5 F 111 H 18 151/86 H 96 07/05/18 07:45 07/05/18 07:45 07/05/18 07:45 07/05/18 07:45 07/05/18 07:45 Intake and Output: 07/05/18 07/05/18 06:59 18:59 Intake Total 1200 Output Total 1300 Balance -100 - Medications Medications: Current Medications Acetaminophen (Tylenol 325mg Tab) 650 mg PO Q6 PRN PRN Reason: Pain, Mild (1-3) Last Admin: 07/01/18 21:35 Dose: 650 mg Clonazepam (Klonopin) 0.25 mg PO Q12@1000,2200 [facility] Last Admin: 07/04/18 22:00 Dose: 0.25 mg Diltiazem HCl (Cardizem) 30 mg PO QID [facility] Last Admin: 07/04/18 21:53 Dose: 30 mg Docusate Sodium (Colace) 100 mg PO BID [facility] Last Admin: 07/04/18 17:56 Dose: 100 mg Enoxaparin Sodium (Lovenox) 40 mg SC Q24H [facility]; Protocol Last Admin: 06/29/18 17:02 Dose: 40 mg Escitalopram Oxalate (Lexapro) 5 mg PO HS [facility] Last Admin: 07/04/18 21:53 Dose: 5 mg Famotidine (Pepcid) 20 mg PO BID [facility] Last Admin: 07/04/18 17:56 Dose: 20 mg Finasteride (Proscar) 5 mg PO DAILY [facility] Last Admin: 07/04/18 09:50 Dose: 5 mg Meropenem 1 gm/ Sodium (Chloride) 100 mls @ 100 mls/hr IVPB Q12 [facility]; Protocol Last Admin: 07/04/18 20:30 Dose: 100 mls/hr Lactulose (Enulose) 10 gm PO DAILY PRN PRN Reason: Constipation Last Admin: 07/03/18 18:00 Dose: 10 gm Levalbuterol HCl (Xopenex) 1.25 mg INH RQ8 [facility] Last Admin: 07/05/18 07:37 Dose: 1.25 mg Metoprolol Succinate (Toprol Xl) 50 mg PO DAILY [facility] Last Admin: 07/04/18 09:52 Dose: 50 mg Morphine Sulfate (Morphine) 2 mg IVP Q4 PRN PRN Reason: Pain, severe (8-10) Last Admin: 07/04/18 15:42 Dose: 2 mg Fluticasone/Salmeterol (Advair Diskus 100/50) 1 puff IH RBID [facility] Last Admin: 07/04/18 20:29 Dose: 1 puff Tamsulosin HCl (Flomax) 0.4 mg PO BID [facility] Last Admin: 07/04/18 17:56 Dose: 0.4 mg - Labs Labs: 07/05/18 04:45 07/05/18 04:45 PT 13.9 Seconds (9.8-13.1) H 06/28/18 08:40 INR 1.2 06/28/18 08:40 APTT 27.1 Seconds (25.6-37.1) 06/27/18 11:38 - Extremities Exam Additional comments: RLE: Dressings CDI Incision clean dry and intact with jhoan diffuse ecchymosis continues to improve sensation intact SP/DP/TN motor intact EHL/FHL/TA/G pedal pulse intact calves soft NT b/l Assessment and Plan (1) Intertrochanteric fracture of right hip Assessment & Plan: POD#7 s/p R hip ORIF with IM nail -Dressings changed to dry dressing, wound drainage has ceased -restart anticoagulation -abx as per ID -restart PT/OT -orthopedically stable for discarge to [facility] -f/u in office within 7-10 days -above d/w Dr. Norris in agreement Status: Acute
--- NOTE | 2018-07-05 11:36 | CP.PCM.DIS ---
Provider - Provider Date of Admission: 06/24/18 17:31 Attending physician: Ethan Ocampo Consults: 06/24/18 06:39 Cardiology Consult Routine Comment: Consulting Provider: Janes Velasquez Consulting Physician: Janes Velasquez Reason for Consult: Afibb 06/24/18 06:43 Orthopedic Consult Stat Comment: Consulting Provider: Fredy Norris III Consulting Physician: Fredy Norris III Reason for Consult: Trochanteric fracture 06/24/18 06:57 Surgery [General Surgery Consult] Routine Comment: Consulting Provider: Carlotta Cooper Consulting Physician: Carlotta Cooper Reason for Consult: Cholecystitis? 06/24/18 06:58 Neuro Surgery Consult Routine Comment: Consulting Provider: Ramos Brandt Consulting Physician: Ramos Brandt Reason for Consult: Nondisplaced Fx L-5 left spinous process 06/24/18 07:22 Wound Care [Nursing Referral for Wound Care] Routine Comment: Physician Instructions: Reason For Exam: Left arm abrasion, posterior head laceration 06/24/18 07:29 Neurology Consult Routine Comment: syncope Consulting Provider: Robbin Casatnon Consulting Physician: Robbin Castanon Reason for Consult: syncope 06/25/18 14:36 Psychiatry Consult Routine Comment: Consulting Provider: Smitha Hebert Consulting Physician: Smitha Hebert Reason for Consult: Family states pt has hx of depression. Requests eval. Thank you! 06/28/18 17:47 Case Management Referral Routine Comment: Physician Instructions: Reason For Exam: Reason for Referral: Discharge Planning 07/02/18 10:16 Urology Consult Routine Comment: Consulting Provider: Ingrid Bautista Consulting Physician: Ingrid Bautista Reason for Consult: urinary retension 07/02/18 10:37 Infectious Disease Consult Routine Comment: Consulting Provider: Gregory Puentes Consulting Physician: Gregory Puentes Reason for Consult: wound drainage s/p R hip ORIF Time Spent in preparation of Discharge (in minutes): 30 Hospital Course - Lab Results Lab Results: Micro Results 07/02/18 18:09 Urine,Catheterized Urine Culture - Final No Growth (<1,000 CFU/ML) 06/24/18 09:08 Blood Blood Culture - Final NO GROWTH AFTER 5 DAYS 06/24/18 09:08 Blood Gram Stain - Final TEST NOT PERFORMED 06/24/18 09:08 Blood Blood Culture - Final NO GROWTH AFTER 5 DAYS 06/24/18 09:08 Blood Gram Stain - Final TEST NOT PERFORMED 06/24/18 05:45 Urine,Pfeiffer Urine Culture - Final No Growth (<1,000 CFU/ML) Most Recent Lab Values WBC 9.6 K/uL (4.8-10.8) 07/05/18 04:45 RBC 3.20 Mil/uL (4.40-5.90) L 07/05/18 04:45 Hgb 9.9 g/dL (12.0-18.0) L 07/05/18 04:45 Hct 28.9 % (35.0-51.0) L 07/05/18 04:45 MCV 90.3 fl (80.0-94.0) 07/05/18 04:45 MCH 30.9 pg (27.0-31.0) 07/05/18 04:45 MCHC 34.2 g/dL (33.0-37.0) 07/05/18 04:45 RDW 13.3 % (11.5-14.5) 07/05/18 04:45 Plt Count 330 K/uL (130-400) 07/05/18 04:45 MPV 7.0 fl (7.2-11.7) L 07/03/18 05:30 Neut % (Auto) 67.2 % (50.0-75.0) 07/03/18 05:30 Lymph % (Auto) 14.7 % (20.0-40.0) L 07/03/18 05:30 [place] % (Auto) 12.9 % (0.0-10.0) H 07/03/18 05:30 Eos % (Auto) 4.8 % (0.0-4.0) H 07/03/18 05:30 Baso % (Auto) 0.4 % (0.0-2.0) 07/03/18 05:30 Neut # (Auto) 5.8 K/uL (1.8-7.0) 07/03/18 05:30 Lymph # (Auto) 1.3 K/uL (1.0-4.3) 07/03/18 05:30 [place] # (Auto) 1.1 K/uL (0.0-0.8) H 07/03/18 05:30 Eos # (Auto) 0.4 K/uL (0.0-0.7) 07/03/18 05:30 Baso # (Auto) 0.0 K/uL (0.0-0.2) 07/03/18 05:30 Neutrophils % (Manual) 85 % (42-75) H 06/24/18 03:55 Lymphocytes % (Manual) 5 % (20-50) L 06/24/18 03:55 Reactive Lymphs % 2 % (0-0) H 06/24/18 03:55 Monocytes % (Manual) 7 % (0-10) 06/24/18 03:55 Myelocytes % 1 % (0-0) H 06/24/18 03:55 Platelet Estimate Normal (NORMAL) 06/24/18 03:55 Large Platelets Present 06/24/18 03:55 Spherocytes Slight 06/24/18 03:55 PT 13.9 Seconds (9.8-13.1) H 06/28/18 08:40 INR 1.2 06/28/18 08:40 APTT 27.1 Seconds (25.6-37.1) 06/27/18 11:38 Sodium 128 mmol/l (132-148) L 07/05/18 04:45 Potassium 4.0 MMOL/L (3.6-5.0) 07/05/18 04:45 Chloride 95 mmol/L (98-107) L 07/05/18 04:45 Carbon Dioxide 26 mmol/L (22-30) 07/05/18 04:45 Anion Gap 11 (10-20) 07/05/18 04:45 BUN 14 mg/dl (9-20) 07/05/18 04:45 Creatinine 0.7 mg/dl (0.8-1.5) L 07/05/18 04:45 Est GFR ( Amer) > 60 07/05/18 04:45 Est GFR (Non-Af Amer) > 60 07/05/18 04:45 POC Glucose (mg/dL) 114 mg/dL (65-110) H 07/05/18 05:20 Random Glucose 105 mg/dL (75-110) 07/05/18 04:45 Serum Osmolality 279 mosm/kg (272-300) 07/04/18 08:03 Lactic Acid 1.4 mmol/L (0.7-2.1) 06/24/18 03:55 Calcium 7.8 mg/dL (8.4-10.2) L 07/05/18 04:45 Phosphorus 4.3 mg/dl (2.5-4.5) 06/25/18 05:40 Magnesium 1.9 MG/DL (1.6-2.3) 06/25/18 05:40 Iron 17 ug/dL (49-181) L 06/26/18 07:30 TIBC 224 ug/dL (250-450) L 06/26/18 07:30 % Saturation 8 % (20-55) L 06/26/18 07:30 Ferritin 98.9 ng/Ml (17.9-464) 06/26/18 04:15 Total Bilirubin 1.0 mg/dl (0.2-1.3) 06/30/18 05:30 Direct Bilirubin 0.2 mg/ml (0.0-0.4) 06/24/18 07:46 AST 24 U/L (17-59) 06/30/18 05:30 ALT 31 U/L (21-72) 06/30/18 05:30 Alkaline Phosphatase 67 U/L (38-126) 06/30/18 05:30 Troponin I 0.0210 ng/mL (0.00-0.120) 06/24/18 03:55 Total Protein 5.5 G/DL (6.3-8.2) L 06/30/18 05:30 Albumin 2.7 g/dL (3.5-5.0) L 06/30/18 05:30 Globulin 2.8 gm/dL (2.2-3.9) 06/30/18 05:30 Albumin/Globulin Ratio 1.0 (1.0-2.1) 06/30/18 05:30 Vitamin B12 411 pg/mL (239-931) 06/26/18 04:15 25-OH Vitamin D Total 34.7 NG/ML (30.0-100.0) 06/24/18 12:20 Procalcitonin 0.06 NG/ML (0.19-0.49) L 07/03/18 05:30 Urine Color Yellow (YELLOW) 07/04/18 11:15 Urine Clarity Clear (Clear) 07/04/18 11:15 Urine pH 7.0 (5.0-8.0) 07/04/18 11:15 Ur Specific [place] 1.012 (1.003-1.030) 07/04/18 11:15 Urine Protein 30 mg/dL (NEGATIVE) 07/04/18 11:15 Urine Glucose (UA) Neg mg/dL (NEGATIVE) 07/04/18 11:15 Urine Ketones Negative mg/dL (NEGATIVE) 07/04/18 11:15 Urine Blood Small (NEGATIVE) 07/04/18 11:15 Urine Nitrate Negative (NEGATIVE) 07/04/18 11:15 Urine Bilirubin Negative (NEGATIVE) 07/04/18 11:15 Urine Urobilinogen 4.0 mg/dL (0.2-1.0) 07/04/18 11:15 Ur Leukocyte Esterase Neg Fawad/uL (Negative) 07/04/18 11:15 Urine RBC (Auto) 6 /hpf (0-3) H 07/04/18 11:15 Urine Microscopic WBC 1 /hpf (0-5) 07/04/18 11:15 Ur Squamous Epith Cells < 1 /hpf (0-5) 06/25/18 17:39 Urine Bacteria Rare (<OCC) 06/25/18 17:39 Urine Osmolality 493 mosm/kg (300-1000) 07/04/18 11:15 Vancomycin Trough 8.4 ug/mL (5.0-10.0) 07/01/18 20:03 Blood Type A POSITIVE 06/27/18 04:50 Blood Type Confirm A POSITIVE 06/24/18 13:40 Antibody Screen Negative 06/27/18 04:50 Crossmatch See Detail 06/27/18 04:50 BBK History Checked Patient has bt 06/27/18 04:50 - Hospital Course Hospital Course: 88 y/o male with hx of HTN, HLD, Anxiety, and Depression brought to ED by EMS after a syncopal episode found to be in Afib with RVR with concomittant intertr ochanteric fracture and L5 transverse process fracture. Acute displaced Traumatic R. Trochanteric Fx -POD 7: R hip ORIF w/ IM nail (ORIF 06/28/18) -Ortho: Dr. Norris -c/w Vanco 1 gm Q12 #7 days -Vanc trough: 8.4 on 07/01/18 -ID: Dr. Puentes: on meropenem 1 gm Q12 + Vanc -PT/OT -Incentive spirometry q1h Mild wheezing: -No noted on exam -Xopenex -Advair Urinary Retention/Incontinence -He reports hx of "Prostate problems" -Proscar, Flomax (per family: increased to BID) -Pfeiffer cath in place ON 07/02/2018 -Urology: Dr. Bautista: Bladder training Iron deficiency anemia -Transfused 2 units on 06/27/18 -follow up H/H: 9.9/28.9 -Venofer given Syncope -Likely secondary to Afib/Vaso-vagal -Cardiology: Dr. Velasquez; ECHO reviewed. continue rx; -Neurology: Dr. Castanon: EEG Normal awake and drowsy EEG -Seizure and fall precautions New onset Afib -Afib w/ RVR on presentation, back in SR at present, sinus tach noted 110's -Cardiac monitoring -Rate and rhythm controlled after Cardizem 10mg IV and 30 po once in ED -Will continue with Cardizem 30 QID po and Metoprolol Succ 50 QD -Cardiology consult: Dr. eVlasquez, recomms appreciated HTN -controlled at goal -Metoprolol Succ 50 PO QD -Monitor BP Hyponatremia -Azotemia resolved -now with mild Hyponatremia Na 128, unclear etiology; started on regular diet -Mild dehydration: hx: HypoNatremia and hypochloremia; likely contraction metabolic alkalosis -Urine osmolality: wnl; euvolemic Leukocytes w/ neutrophilic predominance -Unclear if pt has underlying infectious process; possible UTI -d/c Zosyn and rocephin 1 g daily Cholelithiasis -Surgery consulted: no surgery indicated; f/u outpatient Non-displaced Fx L5 spinous process -Neurosurgery: No surgery at this time -PT and pain management Aneurysm ascending aorta (5.4cm) -No sign of rupture or bleed, hemodynamically stable, no urgent management needed -Given significant size, may need endovascular repair in future Delirium: Anxiety/Depression -resolved, at present AAOx3 -Psych consulted Psych: Dr. Hebert Lexapro and taper klonopin -ranjana Clonopin slowly to d/c -Continue Lexapro HS at low dose 5 mg from 10 mg DVT ppx -SCDs + stockings -Eliquis -High fall risk -PT/OT:for YVES Diet -regular DNR/DNI: Surrogate decision maker: matias Horner Pt d/c to [facility] Continue Meropenem 1 gm q12 for 7 days Continue Vancomycin 1 gm q12 for 6 days Start Eliquis 2.5 mg BID Cotinue pfeiffer catheterization with bladder training and PT; to d/c when able to void PT for strengthening case and plan d/w Dr. Jassi Villafana MD PGY-2 Discharge Exam - Head Exam Head Exam: ATRAUMATIC, NORMOCEPHALIC - Eye Exam Eye Exam: EOMI - ENT Exam ENT Exam: Mucous Membranes Moist - Respiratory Exam Respiratory Exam: Clear to PA & Lateral, NORMAL BREATHING PATTERN. absent: Wheezes - Cardiovascular Exam Cardiovascular Exam: +S1, +S2 - GI/Abdominal Exam GI & Abdominal Exam: Normal Bowel Sounds, Soft. absent: Tenderness - Extremities Exam Additional comments: L forearm: incision site healing well. Scar. dry and intact R thigh with dressing: C/D. ecchymosis posterior thigh - Neurological Exam Neurological exam: Abnormal Gait (2/2 R hip surgery), Alert, CN II-XII Intact - Psychiatric Exam Psychiatric exam: Normal Affect, Normal Mood Discharge Plan - Discharge Medications Prescriptions: Albuterol 0.042% [Albuterol 0.042% Inhal Geri (1.25mg/3ml) UD] 3 ml IH Q8 30 Days #90 geri Apixaban [Eliquis] 2.5 mg PO BID 30 Days #60 tab clonazePAM [Klonopin] 0.25 mg PO Q12@1000,2200 #60 tab diltiaZEM [Cardizem] 30 mg PO QID #120 tab Docusate [Colace] 100 mg PO BID #60 cap Escitalopram [Lexapro] 5 mg PO HS #30 tab Famotidine 20 mg PO DAILY #30 tablet Finasteride [Proscar] 5 mg PO DAILY #30 tab Fluticasone/Salmeterol 100/50 [Advair Diskus 100/50] 1 puff IH RBID #1 dsk Meropenem IV 1 gm in NS [Merrem IV 1 gm Premix] 1 gm IVPB Q12 #14 bag Tamsulosin [Flomax] 0.4 mg PO BID #60 cap Vancomycin/0.9 % Sod Chloride [Vancomycin 1 G/200Ml-0.9% NaCl] 1 gm IV Q12 7 Days #14 kristy - Follow Up Plan Condition: FAIR Disposition: HOME/ ROUTINE Instructions: Hip Fracture (DC), Femur Fracture (DC), Medicines for Atrial Fibrillation, Atrial Fibrillation (DC), Syncope (DC), Syncope (GEN) Additional Instructions: Discharge to [facility]: [facility] with pfeiffer and bladder training PT Vancomycin 1 gm Q12 and Meropenem 1 g Q12 for 7 days Referrals: Fredy Norirs III, MD [Staff Provider] -
[2018-07-05 15:38] VITALS: BP 123/73; PULSE 89; RESP 20; TEMP 98.5; O2SAT 95
== END 2018-07-05 17:15 | DRG 481 ==
LOC: H.ER 03:19 → H.ERHOLD 03:31 → H.TEL 06:56 → OBSVTOIN 17:31 → H.TEL 06-26 00:54
PROVIDERS: ADMIT Internal Medicine; ATTEND Internal Medicine
PROC: 30233N1 Transfusion of Nonautologous Red Blood Cells into Peripheral Vein, Percutaneous Approach (ICD-10-PCS; 2018-06-27)
PROC: 0QS606Z Reposition Right Upper Femur with Intramedullary Internal Fixation Device, Open Approach (ICD-10-PCS; principal; 2018-06-28 10:15)
DX: S72.141A Displaced intertrochanteric fracture of right femur, initial encounter for closed fracture (principal); S32.058A Other fracture of fifth lumbar vertebra, initial encounter for closed fracture; E87.1 Hypo-osmolality and hyponatremia; N13.8 Other obstructive and reflux uropathy; N13.30 Unspecified hydronephrosis; J45.21 Mild intermittent asthma with (acute) exacerbation; D62 Acute posthemorrhagic anemia; S32.059A Unspecified fracture of fifth lumbar vertebra, initial encounter for closed fracture; N39.0 Urinary tract infection, site not specified; R33.8 Other retention of urine; I71.2 Thoracic aortic aneurysm, without rupture; I48.91 Unspecified atrial fibrillation; N40.1 Benign prostatic hyperplasia with lower urinary tract symptoms; R55 Syncope and collapse; F02.80 Dementia in other diseases classified elsewhere, unspecified severity, without behavioral disturbance, psychotic disturbance, mood disturbance, and anxiety; G30.9 Alzheimer's disease, unspecified; D50.9 Iron deficiency anemia, unspecified; E11.51 Type 2 diabetes mellitus with diabetic peripheral angiopathy without gangrene; E11.65 Type 2 diabetes mellitus with hyperglycemia; E78.00 Pure hypercholesterolemia, unspecified; E78.5 Hyperlipidemia, unspecified; E86.0 Dehydration; F06.30 Mood disorder due to known physiological condition, unspecified; F32.9 Major depressive disorder, single episode, unspecified; F41.9 Anxiety disorder, unspecified; I10 Essential (primary) hypertension; K80.20 Calculus of gallbladder without cholecystitis without obstruction; M17.0 Bilateral primary osteoarthritis of knee; M46.90 Unspecified inflammatory spondylopathy, site unspecified; M47.9 Spondylosis, unspecified; N40.0 Benign prostatic hyperplasia without lower urinary tract symptoms; R29.6 Repeated falls; R32 Unspecified urinary incontinence; S01.91XA Laceration without foreign body of unspecified part of head, initial encounter; S51.812A Laceration without foreign body of left forearm, initial encounter; S70.11XA Contusion of right thigh, initial encounter; Y92.009 Unspecified place in unspecified non-institutional (private) residence as the place of occurrence of the external cause; Z87.891 Personal history of nicotine dependence; Z91.81 History of falling; Z95.0 Presence of cardiac pacemaker; E87.8 Other disorders of electrolyte and fluid balance, not elsewhere classified; W18.30XA Fall on same level, unspecified, initial encounter; Z79.899 Other long term (current) drug therapy; R00.0 Tachycardia, unspecified; R30.0 Dysuria; R31.9 Hematuria, unspecified

== ENCOUNTER 2018-09-08 21:52 | Emergency (ER) | payer MEDICARE ==
[2018-09-08 22:08] VITALS: BP 109/67; PULSE 92; RESP 18; TEMP 97.6; O2SAT 96
--- NOTE | 2018-09-09 | ED PDOC ---
HPI: Male Pain Time Seen by Provider: 09/08/18 22:31 Chief Complaint (Nursing): Male Genitourinary History Per: Patient History/Exam Limitations: no limitations Onset/Duration Of Symptoms: Hrs Current Symptoms Are (Timing): Still Present Additional Complaint(s): Hx of BPH presenting with urinary retention. Has had a urinary catheter for the paste 3 months and was removed at the urologist office today at 5PM and since then has not been able to urinate. Denies abdominal pain, states he has chronic back pain due to arthritis which has been worked up by his primary care doctor. Denies nausea, vomiting. Requesting urinary catheter and leg bag. Past Medical History Reviewed: Historical Data, Nursing Documentation, Vital Signs Vital Signs: Last Vital Signs Temp 97.6 F 09/08/18 22:07 Pulse 92 H 09/08/18 22:07 Resp 18 09/08/18 22:07 BP 109/67 09/08/18 22:07 Pulse Ox 96 09/08/18 22:07 Primary Care Provider: Michelle Rao - Medical History PMH: Anxiety, Arthritis (knees), Dementia, Depression, HTN, Hypercholesterolemia Denies: HIV, Chronic Kidney Disease - Family History Family History: States: Unknown Family Hx - Home Medications Home Medications: Ambulatory Orders Medication Instructions Recorded Metoprolol Tartrate [Lopressor] 50 mg PO DAILY 06/24/18 Docusate [Colace] 100 mg PO BID #60 cap 07/02/18 Escitalopram [Lexapro] 5 mg PO HS #30 tab 07/02/18 Famotidine 20 mg PO DAILY #30 tablet 07/02/18 Finasteride [Proscar] 5 mg PO DAILY #30 tab 07/02/18 Fluticasone/Salmeterol 100/50 1 puff IH RBID #1 dsk 07/02/18 [Advair Diskus 100/50] Tamsulosin [Flomax] 0.4 mg PO BID #60 cap 07/02/18 diltiaZEM [Cardizem] 30 mg PO QID #120 tab 07/02/18 Albuterol 0.042% [Albuterol 0.042% 3 ml IH Q8 30 Days #90 aretha 07/05/18 Inhal Aretha (1.25mg/3ml) UD] Apixaban [Eliquis] 2.5 mg PO BID 30 Days #60 tab 07/05/18 Lactulose [Enulose] 10 gm PO DAILY PRN udc 07/05/18 Meropenem IV 1 gm in NS [Merrem IV 1 gm IVPB Q12 #14 bag 07/05/18 1 gm Premix] Vancomycin/0.9 % Sod Chloride 1 gm IV Q12 7 Days #14 froz.piggy 07/05/18 [Vancomycin 1 G/200Ml-0.9% NaCl] clonazePAM [Klonopin] 0.25 mg PO Q12@1000,2200 #60 tab 07/05/18 - Allergies Allergies/Adverse Reactions: Allergies Allergy/AdvReac Type Severity Reaction Status Date / Time No Known Allergies Allergy Verified 06/22/18 23:43 Review of Systems ROS Statement: Except As Marked, All Systems Reviewed And Found Negative Genitourinary Male: Positive for: Other (Urinary ) Physical Exam - Reviewed Nursing Documentation Reviewed: Yes Vital Signs Reviewed: Yes - Physical Exam Appears: Positive for: Well, Non-toxic, No Acute Distress Gastrointestinal/Abdominal: Positive for: Normal Exam, Soft. Negative for: Tenderness, Distended, Guarding - ECG O2 Sat by Pulse Oximetry: 96 Pulse Ox Interpretation: Normal Medical Decision Making Medical Decision Making: Patient presenting with urinary retention Catheter placed by nurse with good flow of urine Patient left ER prior to my reassessment or discharge paperwork Disposition - Clinical Impression Clinical Impression: Urinary retention - Patient ED Disposition Is Patient to be Admitted: No - Disposition Disposition: Eloped Disposition Time: 23:30 Condition: UNKNOWN
== END 2018-09-08 23:48 | disposition left against medical advice (07) ==
LOC: H.ER 21:52
DX: R33.9 Retention of urine, unspecified (principal)